=== PATIENT | male | born 1955 | race Caucasian/White ===

== ENCOUNTER → 2018-02-18 10:20 | Outpatient (CLI) | payer OTHER, SELFPAY ==
--- NOTE | 2018-02-18 10:28 | XR_ITS ---
XR chest 2V HISTORY: ITS.REASON: PERSISTENT COUGH ORDERING PHYSICIAN: Vanessa Disla PATIENT AGE: 63 years COMPARISON: None FINDINGS: The cardiomediastinal silhouette and pulmonary vascularity are within normal limits. The lungs are clear without infiltrates, suspicious nodules, or pleural effusions. No acute bony abnormalities. IMPRESSION: Negative chest, no acute finding
== END ==
PROVIDERS: Visit Provider Nurse Practitioner Family
DX: R05 Cough (principal)
CPT/HCPCS: 71046

== ENCOUNTER → 2018-06-11 10:18 | Outpatient (CLI) | payer OTHER, SELFPAY ==
--- NOTE | 2018-06-11 10:29 | XR_ITS ---
XR knee RT 3V HISTORY: ITS.REASON: RT ANTERIOR PAIN ORDERING PHYSICIAN: Francis Brown MD PATIENT AGE: 63 years COMPARISON: None FINDINGS: There is very slight decrease in the joint space medially with minimal spurring at the patellofemoral joint. On the lateral view there is coarse calcification noted over the anterior aspect of the knee joint suggesting a loose body. This measures approximately 5 mm. IMPRESSION: Minimal osteoarthritis with possible loose body anteriorly
== END ==
PROVIDERS: PCP Internal Medicine Adolescent Medicine; Visit Provider Internal Medicine Adolescent Medicine
DX: M25.561 Pain in right knee (principal)
CPT/HCPCS: 73562

== ENCOUNTER → 2018-06-23 08:38 | Outpatient (CLI) | payer OTHER, SELFPAY ==
--- NOTE | 2018-06-23 08:41 | XR_ITS ---
XR knee RT 4V HISTORY: Knee pain ITS.REASON: 4 views weightbearing ORDERING PHYSICIAN: Wesley Blakely MD PATIENT AGE: 63 years COMPARISON: None FINDINGS: No fracture or dislocation. No lytic or blastic change. Normal mineralization. No significant arthritic changes evident. No other significant findings IMPRESSION: Negative Knee
== END ==
PROVIDERS: PCP Internal Medicine Adolescent Medicine; Visit Provider Orthopaedic Surgery
DX: M25.561 Pain in right knee (principal)
CPT/HCPCS: 73564

== ENCOUNTER → 2018-06-28 12:53 | Outpatient (CLI) | payer OTHER, SELFPAY ==
--- NOTE | 2018-06-28 12:56 | MR_ITS ---
MR knee RT wo con HISTORY: Knee pain, limited range of motion ITS.REASON: evaluate for loose body ORDERING PHYSICIAN: Wesley Blakely MD PATIENT AGE: 63 years Comparison: 06/23/2018 TECHNIQUE: Standard multiplanar multiecho sequences are performed without contrast. FINDINGS: The cruciate ligaments are unremarkable. The collateral ligaments, patellar tendon, and quadriceps tendon have an unremarkable appearance. No meniscal tear . There is minimal irregularity of the posterior patellar cartilage. There are mild osteoarthritic changes of all 3 compartments. No bone bruise apparent. Previous radiograph raising question of a possible loose body. These are often times not well demonstrated by MR I am better demonstrated by CT. There is a small knee joint effusion with a small White's cyst. IMPRESSION: 1. No internal derangement. 2. Mild osteoarthritis with small knee joint effusion and small White's cyst. 3. A loose body is not identified however, often times loose bodies may not be seen on MRI and may be better evaluated for with CT. IMPRESSION:
== END ==
PROVIDERS: PCP Internal Medicine Adolescent Medicine; Visit Provider Orthopaedic Surgery
DX: M23.41 Loose body in knee, right knee (principal)
CPT/HCPCS: 73721

== ENCOUNTER → 2018-07-28 07:48 | Outpatient (CLI) | payer OTHER, SELFPAY ==
--- NOTE | 2018-07-28 07:50 | CT_ITS ---
CT knee RT wo con INDICATION: Right knee pain with instability ITS.REASON: evaluate for loose body ORDERING PHYSICIAN: Wesley Blakely MD PATIENT AGE: 63 years COMPARISON: 06/23/2018 TECHNIQUE: Axial images are obtained without contrast. Sagittal and coronal reformatted images are reviewed as well. All CT scans at the facility use one or more dose reduction, viz: automated exposure control, ma/kV adjustment per patient size (including targeted exams where dose is matched to indication, i.e. head), or iterative reconstruction technique. FINDINGS: There are 2 calcific loose bodies present. The anterior aspect of the knee joint partially calcified loose body is noted measuring 9 mm transverse and 5 mm AP. This is anterior to the tibial spines lying along the medial aspect of the lateral tibial plateau. Seconds somewhat irregular partially calcified loose body is present posterior aspect of the knee posterior to the medial femoral condyle measuring 6 x 5 mm. This is within a small White's cyst. No fracture or dislocation is evident. There are mild tricompartmental osteoarthritic changes along with a small knee joint effusion and small White's cyst. The White's cyst measures 3 cm cephalad to caudad and 1 cm AP. IMPRESSION: 1. Mild osteoarthritis involving all 3 compartments. 2. There are 2 partially calcified loose bodies as described above 1 in the 8 year aspect of the knee joint space and one posteriorly along the medial femoral condyle within a small White's cyst.
== END ==
PROVIDERS: PCP Internal Medicine Adolescent Medicine; Visit Provider Orthopaedic Surgery
DX: M23.41 Loose body in knee, right knee (principal)
CPT/HCPCS: 73700

== ENCOUNTER → 2018-09-08 10:35 | Outpatient (CLI) | payer OTHER, SELFPAY ==
--- NOTE | 2018-09-08 10:40 | XR_ITS ---
XR chest 2V HISTORY: ITS.REASON: HTN ORDERING PHYSICIAN: Wesley Blakely MD PATIENT AGE: 63 years COMPARISON: 02/18/2018. FINDINGS: The cardiomediastinal silhouette and pulmonary vascularity are within normal limits. The lungs are clear without infiltrates, suspicious nodules, or pleural effusions. No acute bony abnormalities. IMPRESSION: Negative chest, no acute finding
[2018-09-08 11:23] LABS: Basophils # 0.1 K/mm3 (0-0.2); Basophils % 2.3 % (0.1-2.0); Eosinophils # 0.5 K/mm3 (0.0-0.4); Eosinophils % 8.4 % (0.1-12.0); Hematocrit 45.5 % (42.0-52.0); Hemoglobin 14.7 g/dL (14.1-18.0); Lymphocytes # 1.5 K/mm3 (0.7-4.5); Lymphocytes % 25.6 % (10-50); Mean Corpuscular HGB Conc 32.4 g/dL (31.8-35.4); Mean Corpuscular Hemoglobin 30.4 pg (27.0-31.2); Mean Corpuscular Volume 93.9 fl (80-94); Mean Platelet Volume 7.4 fl (7.4-10.4); Monocytes # 0.5 K/mm3 (0.1-1.0); Monocytes % 8.4 % (1.7-9.3); Neutrophils # 3.3 K/mm3 (1.8-7.8); Neutrophils % 55.4 % (37.0-80.0); Platelet Count 283 K/mm3 (142-424); Red Blood Count 4.84 M/mm3 (4.60-6.20); Red Cell Distribution Width 12.5 % (11.5-17.5); White Blood Count 5.9 K/mm3 (4.8-10.8)
[2018-09-08 13:55] LABS: Anion Gap 11.2 mEq/L (5-15); Blood Urea Nitrogen 13 mg/dL (7-18); Carbon Dioxide 30 mmol/L (21.0-32.0); Chloride 105 mmol/L (98-107); Creatinine,Serum 1.05 mg/dL (0.70-1.30); Estimated Glomerular Filt Rate 72 ml/min (>60); GFR (African American) 87 ML/MIN (>60); Glucose 82 mg/dL (74-106); Potassium 4.2 mmoL/L (3.5-5.1); Sodium 142 mmol/L (136-145)
== END ==
PROVIDERS: PCP Internal Medicine Adolescent Medicine; Visit Provider Orthopaedic Surgery
DX: Z01.818 Encounter for other preprocedural examination (principal); M17.0 Bilateral primary osteoarthritis of knee
CPT/HCPCS: 36415; 71046; 80048; 85025; 93005

== ENCOUNTER → 2018-12-07 13:39 | Outpatient (POV) | payer OTHER, SELFPAY | PROVIDERS: Visit Provider Dermatology | DX: Z00.00 Encounter for general adult medical examination without abnormal findings (principal) ==

== ENCOUNTER → 2019-01-04 09:16 | Outpatient (POV) | payer OTHER, SELFPAY | PROVIDERS: Visit Provider Otolaryngology | DX: Z00.00 Encounter for general adult medical examination without abnormal findings (principal) ==

== ENCOUNTER 2019-01-11 08:30 | Outpatient (RCR) | payer OTHER, SELFPAY ==
--- NOTE | 2018-11-01 10:35 | HMH.PTOPEV ---
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 on 09/16/18. Pt reports improved R knee pain and buckling episodes since sx . (trochlear microfx, medial plica resection, and chondroplasty). Pt currently reports 'normal post-op' soreness in R knee (lateral> medial). Chief Complaint Pain,Stiff,Clicks,Weakness Symptom Type Ache,Dull Symptoms Relieved By Rest/Positioning Symptoms Aggravated By Standing,Walking Prior Functional Limitations Standing,Walking Current Functional Limitations Standing,Squatting,Walking, Stairs Symptom Description Constant but Variable Level of pain today (0-10) 3 Pain scale - at its best (0-10) 2 Pain scale - at its worst (0-10) 6 Hip/Knee Eval Gait Observation General Gait Pattern Observation Antalgic Gait Assistive Device Assistive Devices None / NA Palpation Tenderness right Knee Palpation Finding Tenderness Knee Palpation Overall Comment 2/4 lateral jt line MMT Hip Flexion Strength Grade 4- Good- Hip Abduction Strength Grade 4- Good- Hip Adduction Strength Grade 4- Good- Hip Extension Strength Grade 4- Good- Hip External Rotation Strength Grade 4 Good Hip Internal Rotation Strength Grade 4- Good- Knee Extension Strength Grade 5 Normal Knee Flexion Strength Grade 4 Good ROM left Knee Flexion Active Range of Motion ( 0-140 degrees) right Knee Flexion Active Range of Motion ( 0-105 degrees) Knee ROM Limitations Soft Tissue Tightness,Pain Effusion joint effusion knee exam standard right Mid - Patellar Circumerential Measure ( 41.5 cm) Outpatient Therapy Assessment Impairments Problems/Impairmments Palpation Tenderness,Impaired Range of Motion,Impaired Strength,Impaired Gait Pattern ,Impaired Walking,Impaired Standing,Impaired Stair
--- NOTE | 2018-12-02 08:54 | HMH.RHREAS ---
Rehab Reassessment Rehab OP Re-assessment Start: 12/02/18 08:22 Freq: Status: Active Protocol: Document 12/02/18 08:51 TAMI (Rec: 12/02/18 08:54 GISSELLEKARINAMICHELLE [id number]) Electronically Signed By Pollo Fitzgerald, PT 12/02/18 08:51 Rehab Re-assessment Subjective Subjective PT REPORTS 4/10 R KNEE PAIN ON VAS, AND FEELS 70-75% BETTER OVERALL FUNCTIONALLY SINCE I EVAL Objective Objective Notes AROM: R KNEE 0-130 MMT: R KNEE EXT 4+/5, FLX 4+/5 , HIP FLX 4-4+/5, HIP ABD/ADD/ EXT 4/5 TTP: R KNEE MEDIAL JT LINE 1/4 EDEMA: CIRCUM. 40.5 R KNEE MID -PATELLA 40.5CM Assessment Progress Assessment Progressing as Expected Assessment Notes PT W/IMPROVED SWELLING, PAIN, STRENGTH, AROM, AND TTP Patient goals met STG'S 07/23 LTG'S 03/30 Goals Not Met STG'S 02/22, LTG'S 11/27 Plan Plan PT TO CONT. W/SKILLED P.T. TO MAKE FURTHER IMPROVEMENTS IN AROM, STRENGTH (QUAD CONTROL), TTP, AND GAIT TO ALLOW FOR OPTIMAL FUNCTION Frequency of Therapy 1-2X/WK Duration of therapy 3-4 WKS Time and Billing Re-Eval Time 15 Re-Eval Billing Units 1 PHYSICIAN CERTIFICATION: I certify the specified therapy services for Elvin Paige are required, authorized, and reviewed every 30 days.
== END 2019-01-11 08:35 | disposition home or self-care (01) ==
LOC: PT 08:30
PROVIDERS: Visit Provider Orthopaedic Surgery
DX: M17.11 Unilateral primary osteoarthritis, right knee (principal); M23.41 Loose body in knee, right knee; M25.561 Pain in right knee; G89.29 Other chronic pain
CPT/HCPCS: 97010; 97014; 97110; 97163; 97164; 97535; G0283

== ENCOUNTER → 2019-06-01 08:43 | Outpatient (CLI) | payer OTHER, SELFPAY ==
--- NOTE | 2019-06-01 08:47 | FL_ITS ---
PROCEDURE: FL UPPER GI W AIR CLINICAL INDICATION: ODYNOPHAGIA acid reflux COMPARISON: No exams were available for comparison TECHNIQUE: FLUOROSCOPY TIME : 2 minutes and 44 seconds FINDINGS: There is a small hiatal hernia with a mildly constricting Schatzki's ring. This however does allow the passage of a 5 mm barium tablet without difficulty. No mass or ulcer is evident. IMPRESSION: Small hiatal hernia with mildly constricting Schatzki's ring Dictated by: Brown Bowman MD 06/01/2019 15:47 Electronically signed by Brown Bowman MD in [place] 06/01/2019 15:47
== END ==
PROVIDERS: PCP Internal Medicine Adolescent Medicine; Visit Provider Internal Medicine Adolescent Medicine
DX: R13.10 Dysphagia, unspecified (principal)
CPT/HCPCS: 74246

== ENCOUNTER 2019-11-18 13:45 | Emergency (ER) | payer OTHER, SELFPAY ==
[2019-11-18 14:30] VITALS: BP 181/101; PULSE 63; RESP 14; TEMP 36.7; O2SAT 95; BMI 29.9
--- NOTE | 2019-11-18 14:52 | HMH.EDUTC ---
[facility] [place] Clinical Impression: Hypertension Qualifiers: Hypertension type: unspecified Qualified Code(s): I10 - Essential (primary) hypertension Disposition: Home, Self-Care Condition on Discharge: Good Instructions: Essential Hypertension Additional Instructions: Follow up with your primary care physician. Increase the losartan to 100 mg daily. I sent in a prescription to your pharmacy. GO TO THE ER FOR ANY CHEST PAIN, SHORTNESS OF BREATH, ETC OR ANY WORSENING SYMPTOMS Prescriptions: Losartan Potassium [Cozaar 100mg Tablets] 100 mg PO DAILY 30 Days #30 tab Transmission Status: Received by [facility] Referrals: Francis Brown MD [Primary Care Provider] - Time of Disposition: 14:58 Medical Decision Making - Medical Records Medical records reviewed: No: I reviewed the patient's medical records. - Benito Inquiry Pt receiving controlled substance: No Vital Signs: 11/18/19 14:30 11/18/19 15:19 Temperature 98.1 F 98.1 F Temperature Source Oral Oral Pulse Rate 63 Pulse Rate [Radial] 63 Respiratory Rate 14 14 Blood Pressure 181/101 H Blood Pressure [Right Arm] 181/101 H Blood Pressure Mean [Right Arm] 127 Blood Pressure Source Automatic Cuff Blood Pressure Source [Right Arm] Automatic Cuff Blood Pressure Position Sitting Blood Pressure Position [Right Arm] Sitting 02 Sat by Pulse Oximetry 95 Oxygen Delivery Method Room Air Room Air [facility] [place] - General Stated complaint: blood pressure high Time Seen by Provider: 11/18/19 14:35 Mode of Arrival: Ambulatory Source of Information: Patient Limitations: No Limitations Description of Symptoms (Recalled from Triage Doc. by RN): Increased blood pressure. No symptoms HEENT Symptoms (Recalled from RN notes): No Resp Symptoms (Recalled from RN notes): No Skin Symptoms (Recalled from RN notes): No MS Symptoms (Recalled from RN notes): No Functional Status (Recalled from RN notes): wnl - History of Present Illness Provider Complaint: He states that 3 days ago he went to his eye doctor and it was found that his blood pressure has not been controlled. So he has a blood pressure cuff now and his b/p has been running 160/100s at home. - Related Data Home Medications Medication Instructions Recorded Confirmed bupropion HCl 150 mg tablet,12 hr 150 mg PO BID 03/20/17 06/22/19 sustained-release atorvastatin 20 mg tablet 20 mg PO DAILY 06/23/18 06/22/19 losartan 50 mg tablet 50 mg PO DAILY 06/23/18 06/22/19 trazodone 50 mg tablet 50 mg PO DAILY 06/23/18 06/22/19 Previous Rx's Medication Instructions Recorded peg 3350-electrolytes 227.1 240 ml PO Q10M #1 each 06/22/19 gram-21.5 gram-6.36gram oral powder packet omeprazole magnesium 20 mg 20 mg PO DAILY #30 tab 07/08/19 tablet,delayed release Losartan Potassium [Cozaar 100mg 100 mg PO DAILY 30 Days #30 tab 11/18/19 Tablets] Allergies Allergy/AdvReac Type Severity Reaction Status Date / Time Penicillins Allergy hives Verified 06/22/19 09:01 Sulfa (Sulfonamide Allergy Verified 06/22/19 09:01 Antibiotics) Tetracyclines AdvReac Mild CARDENAS Verified 06/22/19 09:01 - Worker's Comp Is this a Worker's Comp case?: No [facility] History - Hepatitis A Screen Drug use history?: No High risk sexual behaviors?: No History of sexually transmitted infection?: No Currently employed?: No Childcare worker?: No Do you have indoor plumbing?: Yes Do you have electricity?: Yes Attestation statement:: This patient has been screened for Hepatitis A risk factors. I have reviewed the patient's past medical history: Yes 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: Reports:: Hyperlipidemia, Hypertension Denies:: Cancer, Depression, Diabetes Mellitus Type 1, Diabetes Mellitus Type 2, Internal Pacemaker, MRSA, Seizures Other 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: Reports: Sinus Problems, Other. Denies: Blood Transfusion Reaction Laterality Cases: Right: Arthroscopy Knee, Bilateral: Other Other Surgeries: Yes: Other.
[2019-11-18 15:19] VITALS: BP 181/101; PULSE 63; RESP 14; TEMP 36.7; O2SAT 95
== END 2019-11-18 15:19 | disposition home or self-care (01) ==
PROVIDERS: Emergency Provider Nurse Practitioner Family; PCP Internal Medicine Adolescent Medicine
DX: I16.0 Hypertensive urgency (principal); E78.5 Hyperlipidemia, unspecified; Z88.0 Allergy status to penicillin; Z88.2 Allergy status to sulfonamides
CPT/HCPCS: 99201

== ENCOUNTER → 2019-12-28 12:08 | Outpatient (CLI) | payer OTHER, SELFPAY ==
[2019-12-28 13:34] LABS: Alanine Aminotransferase 34 U/L (12-78); Albumin Level 4.3 g/dl (3.5-5.0); Albumin/Globulin Ratio 1.6 (1.1-1.8); Alkaline Phosphatase 61 U/L (38-126); Anion Gap 11.7 mEq/L (5-15); Aspartate Amino Transferase 30 U/L (17-59); Blood Urea Nitrogen 12 mg/dl (9-20); Calcium 9.7 mg/dl (8.4-10.2); Carbon Dioxide 30 mmol/L (22.0-30.0); Chloride 103 mmol/L (98-107); Chol/HDL Ratio 2.8 (1-3.5); Cholesterol 160 mg/dl (140-200); Estimated Glomerular Filt Rate 76 ml/min (>60); GFR (African American) 92 ML/MIN (>60); Globulin 2.7 g/dL (1.3-3.2); Glucose 103 mg/dl (74-100); HDL Cholesterol 57 mg/dl (40-60); Potassium 4.7 mmoL/L (3.5-5.1); Sodium 140 mmol/L (136-145); Triglycerides 117 mg/dl (30-150); VLDL Cholesterol 23 mg/dL (0-40)
[2019-12-28 13:46] LABS: Direct LDL Cholesterol 87.52 mg/dL (100-129)
== END ==
PROVIDERS: Visit Provider Internal Medicine Adolescent Medicine
DX: I10 Essential (primary) hypertension (principal)
CPT/HCPCS: 36415; 80053; 80061

== ENCOUNTER → 2021-02-21 13:07 | Outpatient (CLI) | payer OTHER, SELFPAY | PROVIDERS: PCP Internal Medicine Adolescent Medicine; Visit Provider Nurse Practitioner | DX: Z20.822 Contact with and (suspected) exposure to COVID-19 (principal) | CPT/HCPCS: C9803; U0003; U0005 ==

== ENCOUNTER → 2021-03-08 16:56 | Outpatient (CLI) | payer OTHER, SELFPAY | PROVIDERS: Visit Provider Nurse Practitioner | DX: Z20.822 Contact with and (suspected) exposure to COVID-19 (principal) | CPT/HCPCS: C9803; U0003; U0005 ==

== ENCOUNTER → 2021-03-22 16:32 | Outpatient (CLI) | payer OTHER, SELFPAY | PROVIDERS: PCP Internal Medicine Adolescent Medicine; Visit Provider Nurse Practitioner | DX: Z20.822 Contact with and (suspected) exposure to COVID-19 (principal) | CPT/HCPCS: C9803; U0003; U0005 ==

== ENCOUNTER 2021-07-14 15:34 | Emergency (ER) | payer OTHER, SELFPAY ==
[2021-07-14 16:30] VITALS: BP 141/86; PULSE 68; RESP 19; TEMP 36.6; O2SAT 100; BMI 32.0
--- NOTE | 2021-07-14 16:56 | HMH.EDUTC ---
[facility] [place] Clinical Impression: Encounter for laboratory testing for COVID-19 virus Disposition: Home, Self-Care Condition on Discharge: Good Instructions: DI for COVID-19 (Suspected or Confirmed ), Preventing the Spread of Coronavirus Discharge Instructions Additional Instructions: *Monitor Temp, Over the counter Motrin or Tylenol as directed/as needed Tylenol every 4 hours and Motrin every 6 hours (as long as your family doctor has told you that you can take it) for fever or pain. and straight to ER if unable to lower temp less than 101.0 after medication given *Warm salt water gargles may help to soothe the throat *Throat Lozenges *Warm fluids like tea with honey may help to soothe the throat *Sleep elevated *Humidifier/Vaporizer Follow up IMMEDIATELY for new or worsening symptoms or no Noticeable improvement over the next 48-72 hours. 911 for difficulty breathing or swallowing You were tested for today for upper respiratory Panel COVID19 your test result should be back in the next 24-48 hours, you may check your results on the [facility] Portal Referrals: Francis Brown MD [Primary Care Provider] - As needed Forms: Work/School Release Time of Disposition: 17:15 Medical Decision Making - Benito Inquiry Pt receiving controlled substance: No Benito was queried for this patient: No Vital Signs: 07/14/21 16:30 Temperature 97.9 F Temperature Source Oral Pulse Rate [Right Brachial] 68 Respiratory Rate 19 Blood Pressure [Right Arm] 141/86 H Blood Pressure Mean [Right Arm] 104 Blood Pressure Source [Right Arm] Automatic Cuff Blood Pressure Position [Right Arm] Sitting 02 Sat by Pulse Oximetry 100 Oxygen Delivery Method Room Air [facility] [place] HPI - General Stated complaint: positive covid home test; cough; runny nose Time Seen by Provider: 07/14/21 16:57 Mode of Arrival: Ambulatory Source of Information: Patient Limitations: No Limitations Description of Symptoms (Recalled from Triage Doc. by RN): PATIENT C/O DRY COUGH AND CONGESTION X 3 DAYS. STATES HE HAD A POSITIVE AT HOME COVID TEST HEENT Symptoms (Recalled from RN notes): Yes Resp Symptoms (Recalled from RN notes): Yes Skin Symptoms (Recalled from RN notes): No MS Symptoms (Recalled from RN notes): No Functional Status (Recalled from RN notes): WNL - History of Present Illness Provider Complaint: Patient state that he has been having dry cough, runny nose and feeling achy States that he took an at home COVID test and it was positive States that he wanted to get tested here to see if it is positive too - Related Data Home Medications Medication Instructions Recorded Confirmed bupropion HCl 150 mg tablet,12 hr 150 mg PO BID 03/20/17 06/22/19 sustained-release atorvastatin 20 mg tablet 20 mg PO DAILY 06/23/18 06/22/19 losartan 50 mg tablet 50 mg PO DAILY 06/23/18 06/22/19 trazodone 50 mg tablet 50 mg PO DAILY 06/23/18 06/22/19 Previous Rx's Medication Instructions Recorded peg 3350-electrolytes 227.1 240 ml PO Q10M #1 each 06/22/19 gram-21.5 gram-6.36gram oral powder packet omeprazole magnesium 20 mg 20 mg PO DAILY #30 tab 07/08/19 tablet,delayed release Losartan Potassium [Cozaar 100mg 100 mg PO DAILY 30 Days #30 tab 11/18/19 Tablets] Allergies Allergy/AdvReac Type Severity Reaction Status Date / Time Penicillins Allergy hives Verified 06/22/19 09:01 Sulfa (Sulfonamide Allergy Verified 06/22/19 09:01 Antibiotics) Tetracyclines AdvReac Mild CARDENAS Verified 06/22/19 09:01 - Worker's Comp Is this a Worker's Comp case?: No [facility] History - Hepatitis A Screen Attestation statement:: This patient has been screened for Hepatitis A risk factors. I have reviewed the patient's past medical history: Yes 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: Reports:: Hyperlipidemia, Hypertension Denies:: Cancer, Depression, Diabetes Mellitus Type 1, Diabetes Mellitus Type 2, Internal Pacemaker, MRSA, Seizures Other 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: Reports: Sinus
[2021-07-14 17:20] VITALS: BP 141/86; PULSE 68; RESP 19; TEMP 36.6; O2SAT 100
== END 2021-07-14 17:25 | disposition home or self-care (01) ==
PROVIDERS: Emergency Provider Nurse Practitioner; PCP Internal Medicine Adolescent Medicine
DX: U07.1 COVID-19 (principal); I10 Essential (primary) hypertension; E78.5 Hyperlipidemia, unspecified
CPT/HCPCS: 99212; C9803; G0463; U0003; U0005

== ENCOUNTER 2021-07-18 11:53 | Emergency (ER) | payer OTHER, SELFPAY ==
[2021-07-18 12:00] VITALS: BP 140/82; PULSE 76; RESP 17; TEMP 36.8; O2SAT 100; BMI 31.5
--- NOTE | 2021-07-18 12:22 | HMH.EDUTC ---
[facility] [place] Disposition Clinical Impression: Encounter for laboratory testing for COVID-19 virus Disposition: Home, Self-Care Condition on Discharge: Good Instructions: DI for COVID-19 (Suspected or Confirmed ), Preventing the Spread of Coronavirus Discharge Instructions Additional Instructions: *Monitor Temp, Over the counter Motrin or Tylenol as directed/as needed Tylenol every 4 hours and Motrin every 6 hours (as long as your family doctor has told you that you can take it) for fever or pain. and straight to ER if unable to lower temp less than 101.0 after medication given *Warm salt water gargles may help to soothe the throat *Throat Lozenges *Warm fluids like tea with honey may help to soothe the throat *Sleep elevated *Humidifier/Vaporizer Your results should be back in the next 24-48 hours and should be available on the [facility] My Health portal Follow up IMMEDIATELY for new or worsening symptoms or no Noticeable improvement over the next 48-72 hours. 911 for difficulty breathing or swallowing Referrals: Francis Brown MD [Primary Care Provider] - Forms: Work/School Release Time of Disposition: 12:28 Medical Decision Making - Benito Inquiry Pt receiving controlled substance: No Benito was queried for this patient: No Vital Signs: 07/18/21 12:00 Temperature 98.2 F Temperature Source Oral Pulse Rate [Right Brachial] 76 Respiratory Rate 17 Blood Pressure [Right Arm] 140/82 Blood Pressure Mean [Right Arm] 101 Blood Pressure Source [Right Arm] Automatic Cuff Blood Pressure Position [Right Arm] Sitting 02 Sat by Pulse Oximetry 100 Oxygen Delivery Method Room Air Orders (Tests/Meds): ORDERS Category Date Time Status Covid-19 Nasal PCR ([facility]) Routine Lab 07/18/21 11:58 Received [facility] [place] HPI - General Stated complaint: covid test Time Seen by Provider: 07/18/21 12:22 Mode of Arrival: Ambulatory Source of Information: Patient Limitations: No Limitations Description of Symptoms (Recalled from Triage Doc. by RN): PATIENT REPORTS HE TESTED POSITIVE FOR COVID ON THURSDAY. HIS WORK IS WANTING HIM TO RETURN, HOWEVER HE IS STILL HAVING SYMPTOMS. PATIENT REQUESTING COVID TEST HEENT Symptoms (Recalled from RN notes): No Resp Symptoms (Recalled from RN notes): No Skin Symptoms (Recalled from RN notes): No MS Symptoms (Recalled from RN notes): No Functional Status (Recalled from RN notes): WNL - History of Present Illness Provider Complaint: Patient requesting to get a COVID test States that he tested positive on Thursday and work is wanting him to return but he is still not feeling well and still having symptoms - Related Data Home Medications Medication Instructions Recorded Confirmed bupropion HCl 150 mg tablet,12 hr 150 mg PO BID 03/20/17 06/22/19 sustained-release atorvastatin 20 mg tablet 20 mg PO DAILY 06/23/18 06/22/19 losartan 50 mg tablet 50 mg PO DAILY 06/23/18 06/22/19 trazodone 50 mg tablet 50 mg PO DAILY 06/23/18 06/22/19 Previous Rx's Medication Instructions Recorded peg 3350-electrolytes 227.1 240 ml PO Q10M #1 each 06/22/19 gram-21.5 gram-6.36gram oral powder packet omeprazole magnesium 20 mg 20 mg PO DAILY #30 tab 07/08/19 tablet,delayed release Losartan Potassium [Cozaar 100mg 100 mg PO DAILY 30 Days #30 tab 11/18/19 Tablets] Allergies Allergy/AdvReac Type Severity Reaction Status Date / Time Penicillins Allergy hives Verified 06/22/19 09:01 Sulfa (Sulfonamide Allergy Verified 06/22/19 09:01 Antibiotics) Tetracyclines AdvReac Mild CARDENAS Verified 06/22/19 09:01 - Worker's Comp Is this a Worker's Comp case?: No [facility] History - Hepatitis A Screen Attestation statement:: This patient has been screened for Hepatitis A risk factors. I have reviewed the patient's past medical history: Yes 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: Reports:: Hyperlipidemia, Hypertension Denies:: Cancer, Depression, Diabetes Mellitus Type 1, Diabetes Mellitus Type 2, Internal Pacemaker, MRSA,
[2021-07-18 12:25] VITALS: BP 140/82; PULSE 76; RESP 17; TEMP 36.8; O2SAT 100
== END 2021-07-18 12:38 | disposition home or self-care (01) ==
PROVIDERS: Emergency Provider Nurse Practitioner; PCP Internal Medicine Adolescent Medicine
DX: Z20.822 Contact with and (suspected) exposure to COVID-19 (principal)
CPT/HCPCS: 99212; C9803; G0463; U0003; U0005

== ENCOUNTER → 2023-01-22 07:41 | Outpatient (CLI) | payer OTHER, SELFPAY ==
--- NOTE | 2023-01-22 08:22 | US_ITS ---
FINAL REPORT CLINICAL HISTORY: LT UPPER QUAD PAIN,NODULE OF SKIN COMPARISON: None FINDINGS: Sonographic images of the abdomen were obtained. The liver has a coarsened echotexture, suggesting either fatty infiltration of the liver or cirrhosis. The gallbladder has an unremarkable appearance without evidence of gallstones. There is no evidence of biliary ductal dilatation. The common hepatic duct measures 3 mm, which is within normal limits. The pancreas is obscured by overlying bowel gas. The spleen size is normal. The right kidney measures 10.8 in length. The left kidney measures 12.1 in length. There is normal renal echogenicity. There is no evidence of hydronephrosis. The aorta has an unremarkable appearance. Limited images of the inferior vena cava are unremarkable. IMPRESSION: Coarsened echotexture of the liver, likely either fatty infiltration of the liver or cirrhosis. Reviewed, Interpreted and Dictated by Gasper García III, MD Transcribed by Johanny Jeffers Authenticated and [facility]
== END ==
PROVIDERS: PCP Internal Medicine Adolescent Medicine; Visit Provider Internal Medicine Adolescent Medicine
DX: R10.12 Left upper quadrant pain (principal); R22.2 Localized swelling, mass and lump, trunk
CPT/HCPCS: 76700

== ENCOUNTER 2023-02-17 11:52 | Outpatient (CLI) | payer OTHER, SELFPAY ==
--- NOTE | 2023-02-17 12:17 | XR_ITS ---
FINAL REPORT CLINICAL HISTORY: ACUTE FEBRILE ILLNESS, soa, low o2 sats COMPARISON: December 2018 FINDINGS: Two views of the chest show lungs to be clear. Pulmonary vascularity is normal. Heart and mediastinum are unremarkable. No pleural effusion is present. IMPRESSION: No active disease. Reviewed, Interpreted and Dictated by Gasper García III, MD Transcribed by Dell Alvarenga Authenticated and [facility]
== END 2023-02-17 23:59 ==
PROVIDERS: PCP Internal Medicine Adolescent Medicine; Visit Provider Internal Medicine Adolescent Medicine
DX: R50.9 Fever, unspecified (principal)
CPT/HCPCS: 71046

== ENCOUNTER 2023-02-25 13:35 | Outpatient (CLI) | payer OTHER, SELFPAY ==
--- NOTE | 2023-02-25 13:46 | ECG_ITS ---
APPROVED REPORT Exam: Resting ECG HR:67 bpm ECG Measurements Heart Rate 67 AXES OR 170 P 40 QRSd 82 QRS 88 QT 381 T 22 QTc 397 Conclusion SINUS RHYTHM NORMAL ECG UNCONFIRMED REPORT Electronically signed by : Francis Brown MD 02/26/2023 20:11:16
[2023-02-25 14:12] LABS: Basophils # 0.1 K/mm3 (0-0.2); Basophils % 1.6 % (0.1-2.0); Eosinophils # 0.7 K/mm3 (0.0-0.4); Eosinophils % 7.5 % (0.1-12.0); Hematocrit 48.5 % (42.0-52.0); Hemoglobin 15.6 g/dL (14.1-18.0); Lymphocytes # 1.8 K/mm3 (0.7-4.5); Lymphocytes % 20.5 % (10-50); Mean Corpuscular HGB Conc 32.2 g/dL (31.8-35.4); Mean Corpuscular Hemoglobin 31.7 pg (27.0-31.2); Mean Corpuscular Volume 98.5 fl (80-94); Mean Platelet Volume 7.5 fl (7.4-10.4); Monocytes # 0.6 K/mm3 (0.1-1.0); Monocytes % 7.3 % (1.7-9.3); Neutrophils # 5.6 K/mm3 (1.8-7.8); Neutrophils % 63.1 % (37.0-80.0); Platelet Count 444 K/mm3 (142-424); Red Blood Count 4.93 M/mm3 (4.60-6.20); Red Cell Distribution Width 12.8 % (11.5-17.5); White Blood Count 8.8 K/mm3 (4.8-10.8)
[2023-02-25 15:00] LABS: Chloride 102 mmol/L (98-107); Potassium 5.1 mmoL/L (3.5-5.1); Sodium 137 mmol/L (136-145)
[2023-02-25 15:03] LABS: Anion Gap 15.1 mEq/L (5-15); Blood Urea Nitrogen 19 mg/dl (9-20); Carbon Dioxide 25 mmol/L (22.0-30.0); Estimated Glomerular Filt Rate 75 ml/min (>60); GFR (African American) 90 ML/MIN (>60)
[2023-02-25 15:04] LABS: Calcium 8.9 mg/dl (8.4-10.2); Glucose 169 mg/dl (74-100)
== END 2023-02-25 23:59 ==
PROVIDERS: PCP Internal Medicine Adolescent Medicine; Visit Provider Surgery
DX: R22.32 Localized swelling, mass and lump, left upper limb (principal)
CPT/HCPCS: 36415; 80048; 85025; 93005

== ENCOUNTER 2023-03-05 05:53 | Day surgery (SDC) | payer OTHER, SELFPAY ==
[2023-03-02 13:11] VITALS: BMI 30.8
[2023-03-05] VITALS (11 sets, daily range): BP systolic 122–137; BP diastolic 57–75; PULSE 63–71; RESP 16–19; TEMP 36.1–36.6; O2SAT 94–98
[2023-03-05] MEDS: LACTATED RINGERS 1000ML 1,000 ML 25 ML IV (06:21)
--- NOTE | 2023-03-05 07:23 | EXP.ANES.CKL ---
[facility] Disclaimer: The information contained in this section may have been updated after the patient was seen, as this information can be updated by other users. 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 occupational exposures/hazards: No caffeine: Yes [facility] Anesthesia Checklist Patient Identification Patient Identification: Arm Band Structural Data Admitted From: Home Planned Operative Procedure/s: Excision of Left Upper Extremity Mass Consent for Planned Operative Procedure(s) Verified: Yes Verified Documents: Surgical Consent and History and Physical NPO Status Verified Time NPO: 00:00 Additional verifications Anesthesia Reactions: No Hx Blood Transfusions: No Blood Transfusion Reaction: No Airway Assessment Mallampati Score:: Class II C-Spine Mobility Assessed: Yes TMJ Mobility Assessed: Yes Dentition: Good Dentition Neurological Assessment Level of Consciousness: Awake and Alert Anesthesia Plan Anesthesia Risk discussed: Yes Anesthesia Plan: Verified ASA Class: II Anesthesia Type: General
[2023-03-05] MEDS: CLINDAMYCIN PHOSPHATE 900 MG in 0.9 % SODIUM CHLORIDE 50 ML 112 MG IV (08:00)
[2023-03-05] MEDS: LIDOCAINE 1% 20ML MDV 20 ML (08:08)
[2023-03-05] MEDS: BACITRACIN ZINC OINT 30GM TUBE 28 GM TP (08:17)
--- NOTE | 2023-03-05 08:25 | P.OP_ITS ---
Date of procedure: 03/05/23 Pre-op Diagnosis:: Left upper extremity mass (2.5 cm) Post-op Diagnosis:: Same Procedure performed:: Excision of 2.5 cm left upper extremity mass (complex lobulated lipoma) Surgeon:: Ronald Delcid MD ENROLLMENT ELIGIBILITY REPRESENTATIVE:: Ilan Butler Anesthesia: LMA Estimated blood loss (mL): 10 Operative findings:: Complex lobulated lipoma excised Operative note:: After informed consent was obtained the patient was taken to the operating room and placed in the supine position. General anesthesia with laryngeal mask airway was achieved and his left arm was prepped and draped in a sterile fashion. After infiltration with local anesthetic an incision was made overlying the palpable lesion. A combination of sharp dissection, blunt dissection, and electrocautery was utilized to transect through the deep subcuta neous tissue. A lobulated complex lipomatous lesion was noted. The lesion was excised in toto and passed off for pathologic evaluation. Electrocautery was utilized to achieve hemostasis. Skin was then reapproximated with interrupted 4-0 nylon in a mattress fashion to facilitate hemostasis. Dressings were applied and patient was transferred to recovery in stable condition after removal of his laryngeal mask airway. Condition: stable Disposition: PACU Specimens:: Left upper extremity mass Complications:: No immediate
--- NOTE | 2023-03-05 08:34 | P.PNANES_ITS ---
[facility] Anesthesia Record Part I Anesthesia Record I Intake, IV Amount: 700 Hydration: Adequate Estimated blood loss (mL): 10 Urine output (mL): 0 Blood Products used (#): none Blood Pressure: 135/65 SaO2: 95 Pulse Rate: 71 Airway Patency: Patent Respiratory Rate: 16 Temperature: 97 F Patient is:: Drowsy and Stable Stable to PACU at:: 08:30
--- NOTE | 2023-03-05 09:05 | SUR.PHASEI ---
0840-decreased O2- 2L and sats dropped to 87%. went to 3L/O2 and pt sat at 94% 0850-decreased 02 NC to 2L Sats remaining at 95% 0900-O2/2L Sats 95%- unable to decrease at this time pt drops to 87% 0914- RA sats 94%
--- NOTE | 2023-03-05 09:30 | SUR.PHASEI ---
Gave reprot to Jojo via phone and then BFYovani at BS in postop
--- NOTE | 2023-03-06 08:57 | P.PNANES_ITS ---
[facility] Anesthesia Record Part II Anesthesia Record Part II Discharge Time: 09:19 Destination: Surgical Day Care (OP Surgery) PACU nurse assessment reviewed?: Yes Patient Condition:: Good Anesthesia Complications:: None Swallowing reflex intact?: Yes Airway Patency: Patent Cyanosis?: No Blood Pressure: 124/57 SaO2: 94 Respiratory Rate: 19 Pulse Rate: 65 Temperature: 97.8 F Mental Status: Alert & Oriented Pain level:: 0 Nausea and/or vomitting:: None Intake, IV Amount: 0 Hydration: Adequate
[2023-03-06 08:58] VITALS: BP 124/57; PULSE 65; RESP 19; TEMP 36.6; O2SAT 94
== END 2023-03-05 09:50 | disposition home or self-care (01) ==
PROVIDERS: PCP Internal Medicine Adolescent Medicine; Visit Provider Surgery
PROC: (CPT 11403; principal; 2023-03-05 07:30)
DX: D17.22 Benign lipomatous neoplasm of skin and subcutaneous tissue of left arm (principal)
CPT/HCPCS: 11403; 96374; J0736; J2405

== ENCOUNTER 2023-05-12 09:28 | Day surgery (SDC) | payer OTHER, SELFPAY ==
[2023-05-11 09:04] VITALS: BMI 30.7
[2023-05-12 09:49] VITALS: BP 165/79; PULSE 77; RESP 18; TEMP 36.3; O2SAT 97
[2023-05-12] MEDS: LACTATED RINGERS 1000ML 1,000 ML 25 ML IV (09:54)
--- NOTE | 2023-05-12 09:59 | EXP.ANES.CKL ---
[facility] Disclaimer: The information contained in this section may have been updated after the patient was seen, as this information can be updated by other users. 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 occupational exposures/hazards: No caffeine: No [facility] Anesthesia Checklist Patient Identification Patient Identification: Arm Band Structural Data Admitted From: Home Planned Operative Procedure/s: EGD/Colonoscopy Consent for Planned Operative Procedure(s) Verified: Yes Verified Documents: Surgical Consent and History and Physical NPO Status Verified Time NPO: 00:00 Additional verifications Anesthesia Reactions: No Hx Blood Transfusions: No Blood Transfusion Reaction: No Airway Assessment Mallampati Score:: Class III C-Spine Mobility Assessed: Yes TMJ Mobility Assessed: Yes Dentition: Good Dentition Neurological Assessment Level of Consciousness: Awake and Alert Anesthesia Plan Anesthesia Risk discussed: Yes Anesthesia Plan: Verified ASA Class: II Anesthesia Type: MAC
--- NOTE | 2023-05-12 10:26 | HMH.SCOPE ---
Procedure: Date: 05/12/23 Patient Date of :: 1955 Procedure Performed:: Esophagogastroduodenoscopy with biopsy Colonoscopy (aborted) Indications:: Gastroesophageal reflux Dysphagia Screening colonoscopy Performing Provider:: Ronald Delcid MD Referring Provider:: . Sedation:: Monitored anesthesia care Procedure:: After informed consent was obtained the patient was taken to the endoscopy suite. Sedation ensued after the patient was transferred to the left lateral decubitus position. Pulse, blood pressure, and oxygen saturation were monitored throughout the procedure. The endoscope was advanced beyond the duodenal bulb. Retroflexion within the gastric lumen was accomplished. The gastroscope was carefully removed. Digital rectal exam revealed no significant abnormality. The colonoscope was placed in position. Exceedingly poor bowel preparation immediately noted. The distal sigmoid/rectum had fairly profound stool burden. Advancement beyond the rectum/distal sigmoid was deemed unwarranted/unsafe. The colonoscope was carefully removed and the patient was transferred to recovery in stable condition. Please see findings and specimens below for detail. Findings:: Gastroesophageal junction at 40 cm Mild lobular inflammatory response to gastroesophageal junction Small sliding hiatal hernia Mild patchy gastritis Bowel preparation exceedingly poor (colonoscopy aborted) Specimens:: Antral biopsy Recommendations:: Proton pump inhibition Consider repeat barium swallow and possible modified barium swallow Consider UGI/SBFT Consider gastric emptying scan Colonoscopy in near future with extended bowel preparation (possibly deferred to the gastroenterology service) Consider gastroenterology evaluation secondary to exceedingly poor bowel preparation and patient's generalized gastrointestinal complaints. Complications:: Exceedingly poor bowel preparation. Colonoscopy aborted. Estimated blood obtained (mL): 1 Colonoscopy Component Colonoscopy Component Was a colonoscopy performed during today's procedure?: Yes Recommended follow up colonoscopy of at least 10 years?: No If no, follow up colonoscopy recommended in ___ years?: (See above) Reason for not recommending >/= 10 yr follow-up interval?: (See above)
[2023-05-12 10:31] VITALS: O2SAT 97
[2023-05-12 10:57] VITALS: BP 107/63; PULSE 70; RESP 16; TEMP 36.2; O2SAT 91
[2023-05-12 11:07] VITALS: BP 111/61; PULSE 65; RESP 16; O2SAT 90
[2023-05-12 11:17] VITALS: BP 132/71; PULSE 70; RESP 16; O2SAT 92
[2023-05-12 11:27] VITALS: BP 136/74; PULSE 65; RESP 16; TEMP 36.6; O2SAT 93
== END 2023-05-12 11:27 | disposition home or self-care (01) ==
PROVIDERS: PCP Internal Medicine Adolescent Medicine; Visit Provider Surgery
PROC: 0DJ08ZZ Inspection of Upper Intestinal Tract, Via Natural or Artificial Opening Endoscopic (ICD-10-PCS; CPT 43235; principal; 2023-05-12 10:30)
DX: K21.9 Gastro-esophageal reflux disease without esophagitis (principal); R13.10 Dysphagia, unspecified; Z12.11 Encounter for screening for malignant neoplasm of colon; Z91.199 Patient's noncompliance with other medical treatment and regimen due to unspecified reason; K44.9 Diaphragmatic hernia without obstruction or gangrene; K29.70 Gastritis, unspecified, without bleeding
CPT/HCPCS: 43239; 45378

== ENCOUNTER 2023-08-09 17:12 | Emergency (ER) | payer OTHER, MEDICARE, SELFPAY ==
[2023-08-09 17:50] VITALS: BP 146/67; PULSE 62; RESP 18; TEMP 36.8; O2SAT 97; BMI 30.3
[2023-08-09] MEDS: cephALEXin 500MG CAPSULE 500 MG PO (18:10)
--- NOTE | 2023-08-09 18:11 | ED_ITS ---
Discharge Plan Disposition Patient Disposition: Home, Self-Care Condition: Good Prescriptions Prescriptions: New cephalexin 500 mg tablet 500 mg PO BID 10 Days Qty: 20 0RF No Action trazodone 50 mg tablet 50 mg PO DAILY bupropion HCl 150 mg tablet extended release 24 hr 150 mg PO DAILY dapagliflozin propanediol [Farxiga] 10 mg tablet 10 mg PO DAILY Patient Comments: TAKE ONE TABLET BY MOUTH EVERY DAY pantoprazole 20 mg tablet,delayed release (DR/EC) 20 mg PO DAILY Qty: 30 3RF polyethylene glycol 3350 [Miralax] 17 gram/dose powder 17 g PO DAILY Qty: 510 0RF Rx Instructions: Take 17 grams daily in morning dissolved in liquid of choice. May titrate to effect/consistency of stool. atorvastatin 20 mg tablet 20 mg PO HS Patient Comments: TAKE ONE TABLET BY MOUTH EVERY DAY losartan 100 MG tablet 100 mg PO DAILY 30 Days Qty: 30 0RF Referrals Follow up/Referrals: Francis Brown MD [Primary Care Provider] - See instructions Activity Restrictions/Add. Instructions Additional Instructions/Restrictions: if worsen return antibiotics follow up with pcp Clinical Impressions Clinical Impression: Cellulitis of hand, Sting, wasp Instructions Patient Instructions: Cellulitis Discharge ED Provider: Artie ([facility] [place] General Stated complaint: Wasp sting Mode of Arrival: Ambulatory Source of Information: Patient Limitations: No Limitations Time Seen by Provider: 08/09/23 18:11 Description of Symptoms (Recalled from Triage Doc. by RN): Pt has a wasp sting on right hand HEENT Symptoms (Recalled from RN notes): No Resp Symptoms (Recalled from RN notes): No Skin Symptoms (Recalled from RN notes): Yes MS Symptoms (Recalled from RN notes): No Functional Status (Recalled from RN notes): n/a History of Present Illness Provider Complaint: 68 yr old male presents for rt hand swollen and red from wasp sting on thursday. pt states the redness and swelling has increased. Related Data Home Medications Medication Instructions Recorded Confirmed trazodone 50 mg tablet 50 mg PO DAILY bp 06/23/18 08/09/23 bupropion HCl 150 mg 24 hr tablet, 150 mg PO DAILY Depression 02/25/23 08/09/23 extended release atorvastatin 20 mg tablet 20 mg PO HS 03/02/23 08/09/23 dapagliflozin propanediol 10 mg 10 mg PO DAILY 08/03/23 08/09/23 tablet (Farxiga) Previous Rx's Medication Instructions Recorded losartan 100 mg tablet 100 mg PO DAILY 30 days #30 tabs 11/18/19 pantoprazole 20 mg tablet,delayed 20 mg PO DAILY #30 tabs 08/03/23 release polyethylene glycol 3350 17 17 g PO DAILY constipation #510 08/03/23 gram/dose oral powder (Miralax) grams cephalexin 500 mg tablet 500 mg PO BID 10 days #20 tabs 08/09/23 Allergies Allergy/AdvReac Type Severity Reaction Status Date / Time amoxicillin [From Augmentin] Allergy Mild Verified 08/09/23 18:08 clavulanic acid Allergy Mild Verified 08/09/23 18:08 [From Augmentin] Penicillins Allergy hives Verified 08/09/23 18:08 Sulfa (Sulfonamide Allergy Verified 08/09/23 18:08 Antibiotics) Tetracyclines AdvReac Mild CARDENAS Verified 08/09/23 18:08 Worker's Comp Is this a Worker's Comp case?: No [facility] Disclaimer: The information contained in this section may have been updated after the patient was seen, as this information can be updated by other users. 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) Smoking Status: Never smoker alcohol intake: never substance use type: denies use current occupational status: other Travel in the last 8 weeks: None household members: spouse housing: house 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 occupational exposures/hazards: No caffeine: No ROS Obtained: Yes All systems reviewed & no additional complaints except as documented Constitutional Constitutional: Reports system reviewed and no additional complaints, except as documented Eyes Eyes: Reports system reviewed and no additional complaints, except as documented ENT Ears, Nose, Mouth, and Throat: Reports system reviewed and no additional complaints, except as documented Cardiovascular Cardiovascular: Reports system reviewed and no additional complaints, except as documented Respiratory Respiratory: Reports system reviewed and no additional complaints, except as documented Gastrointestinal Gastrointestingal: Reports system reviewed and no additional complaints, except as documented Musculoskeletal Musculoskeletal: Reports system reviewed and no additional complaints, except as documented and Reports as per HPI Integumentary/Breasts Skin/Breast: Reports system reviewed and no additional complaints, except as documented, Reports as per HPI, Reports redness, Reports pruritus and Reports other Allergic/Immunologic Allergic/Immunologic: Reports system reviewed and no additional complaints, except as documented Physical Exam General General appearance: alert and in no apparent distress Respiratory Respiratory exam: Present normal lung sounds bilaterally Cardiovascular Cardiovascular exam: Present regular rate and normal rhythm Neurological Exam Neurological exam: Present alert and oriented X3 Skin Skin exam: Present warm and erythema Medical Decision Making Medical Records Medical records reviewed: Yes I reviewed the patient's medical records. Benito Inquiry Pt receiving controlled substance: No Benito was queried for this patient: No Vital Signs: 08/09/23 17:50 Temperature 98.3 F Temperature Source Oral Pulse Rate [Right Radial] 62 Respiratory Rate 18 Blood Pressure [Right Arm] 146/67 H Blood Pressure Mean [Right Arm] 93 Blood Pressure Source [Right Arm] Automatic Cuff Blood Pressure Position [Right Arm] Sitting 02 Sat by Pulse Oximetry 97 Oxygen Delivery Method Room Air Orders (Tests/Meds): ED MEDICATIONS Generic Name Dose Route Start Last Admin Trade Name Hiraq PRN Reason Stop Dose Admin Cephalexin HCl 500 mg 08/09/23 17:58 08/09/23 18:10 Cephalexin 500mg Capsule PO 08/09/23 17:59 500 mg ONCE ONE Administration
[2023-08-09 18:24] VITALS: BP 146/67; PULSE 62; RESP 18; TEMP 36.8; O2SAT 97
== END 2023-08-09 18:24 | disposition home or self-care (01) ==
PROVIDERS: Emergency Provider Nurse Practitioner Family; PCP Internal Medicine Adolescent Medicine
DX: L03.113 Cellulitis of right upper limb (principal); T63.461A Toxic effect of venom of wasps, accidental (unintentional), initial encounter
CPT/HCPCS: 99212; 99214; G0463

== ENCOUNTER 2023-09-15 11:00 | Outpatient (RCR) | payer OTHER, SELFPAY ==
--- NOTE | 2023-06-09 09:47 | HMH.PTOPEV ---
PT Outpatient Evaluation Rehab PT Outpatient Evaluation Start: 06/08/23 11:03 Freq: Status: Active Protocol: Document 06/08/23 11:06 DANIELE (Rec: 06/08/23 12:51 DANIELE [email or web address]) E-signed By Lexus Zarate, PT Outpatient Therapy Subjective History Subjective History This is an initial evaluation for Jean-Pierre Palacios , who presents with complaints of L knee pain and L neck/shoulder pain. CERVICAL: Pt reports his neck pain began upon waking up one morning in February. Pt's neck pain is all left sided and order reports L trap strain. Pt denies numbness or tingling . Pt points to lateral L UT as source of pain. Looking down and SB right are most painful. Pt denying any injury prior to neck pain. The pain is slowly worsening. History of L sided TMJ. KNEE: Pt reports his pain in laterally and below the knee cap. Pt's knee pain started in January. Descending stairs causes the most pain. Pt reports he feels unstable at times but carl any known injury or fall. Pain was gradual and insidous. No numbness or tingling. Pt has not had any imaging on either area. New diagnosis of cancer in past 12 No months? Chief Complaint Pain,Stiff,Gives out/Unstable Symptom Type Ache,Dull Symptoms Relieved By Rest/Positioning,OTC Meds Symptoms Aggravated By Supine,Standing,Physical Activity,Walking Current Functional Limitations Driving,Sleeping,Standing, Squatting,Recreation Activity, Stairs Symptom Description Constant but Variable, Intermittent Level of pain today (0-10) 4 Pain scale - at its best (0-10) 3 Pain scale - at its worst (0-10) 7 Cervical Eval Palpation Cervical Muscles L Upper Trapezius Cervical/Thoracic Palpation Findings Tenderness Posture Head/C-Spine Posture Sitting Position Flexed Head/C-Spine Posture Standing Position Flexed Flexibility Deficits Upper Trapezius Muscle Length (R) Mild Tightness,(L) Moderate Tightness Levaetor Scapulae Muscle Length (R) Mild Tightness,(L) Moderate Tightness AROM Cervical Spine Extension Active Range of 40 Motion (degrees) Cervical Spine Flexion Active Range of 60, pulling Motion (degrees) Cervical Spine Right Lateral Flexion 20, pulling, pain Active Range of Motion (degrees) Cervical Spine Left Lateral Flexion 25 Active Range of Motion (degrees) Cervical Spine Right Rotation Active WNL Range of Motion (degrees) Cervical Spine Left Rotation Active WNL Range of Motion (degrees) MMT Left Deltoid (C5) 5 Normal Biceps Brachii Strength Grade 5 Normal Triceps Brachii Strength Grade 5 Normal Shoulder/Elbow Eval Shoulder Objective Measurements Shoulder Special Tests Shoulder Lyon-Pedro Impingement Negative Left Test Shoulder Neer Impingement Test Negative Left Elbow Objective Measurements Hip/Knee Eval Gait Observation General Gait Pattern Observation No Deviations/Normal Palpation Tenderness left Knee Palpation Finding Tenderness Knee Palpation Overall Comment 02/19 TTP MMT Hip Flexion Strength Grade 4 Good Hip Abduction Strength Grade 5 Normal Hip Adduction Strength Grade 4 Good Hip Extension Strength Grade 4 Good Knee Extension Strength Grade 4 Good Knee Flexion Strength Grade 4 Good ROM Knee Extension Active Range of Motion ( WNL, nonpainful degrees) Knee Flexion Active Range of Motion ( WNL, nonpainful degrees) Special Tests Knee Dodge Test Negative Left Knee Anterior Edward Test Negative Left Knee Posterior Sag (Haswell Drawer) Test Negative Left Knee Valgus Stress Test Negative Left Knee Varus Stress Test Negative Left Knee Adelaide Test Negative Left Patella Apprehension Test Negative Left Patellar Compression Test Negative Left Lower Extremity Functional Index Activities Today, do you or would you have any difficulty at all with: a.Any of your usual work, housework or A little bit of difficulty school activities b. Your usual hobbies, recreational or A little bit of difficulty sporting activities c. Getting into or out of the bath No difficulty d. Walking between rooms No difficulty e. Putting on your shoes or socks No difficulty f. Squatting A little bit of difficulty g. Lifting an object, like a bag of No difficulty groceries from the floor h. Performing light activities around No difficulty your home i. Performing heavy activities around No difficulty your home j. Getting into or out of a car No difficulty k. Walking 2 blocks No difficulty l. Walking a mile A little bit of difficulty m. Going up or down 10 stairs (about 1 A little bit of difficulty flight of stairs) n. Standing for 1 hour No difficulty o. Sitting for 1 hour No difficulty p. Running on even ground No difficulty q. Running on uneven ground A little bit of difficulty r. Making sharp turns while running fast Moderate difficulty s. Hopping A little bit of difficulty t. Rolling over in bed No difficulty LEFI Score Lower Extremity Functional Index Score 71 Outpatient Therapy Assessment Impairments Problems/Impairmments Palpation Tenderness,Impaired Range of Motion,Impaired Strength,Impaired Squatting, Impaired Recreational Activities,Impaired Running, Subjective C/O Pain Prognosis Rehab Potential Good Clinical Impression Consistent with Diagnosis Yes Short Term Goals Number of Weeks 3 Increase Range of Motion Yes: Increase by 5 degrees cervical AROM in affected planes Decrease Subjective C/O Pain Yes: At worst 5/10 shoulder/ neck pain. Patient to be Ind w/ HEP Yes Dental Biller Goals Number of Weeks 6 Decreased Palpation Tenderness Yes: 0/4 TTP L UT Increase Range of Motion Yes: WNL and painfree cervical AROM Increase Strength Yes: LLE 5/5 MMTs to improve functional strength Improve Ability to Climb Stairs Yes: Ascend and descend 24 steps without c/o knee pain or instability. Improve LEFI Score Yes: Improve to 76/80 to improve QOL Decrease Subjective C/O Pain Yes: At worst 3/10 to improve QOL and decrease pain severity . Patient to be Ind w/ Advanced HEP Yes Outpatient Therapy Plan of Care Treatment Plan May Include Therapeutic Exercise Including Home Yes Exercise Program Manual Therapy Techniques Yes Neuromuscular Re-education Yes Therapeutic Activities to Return to Yes Previous Functional/Work Level ADL/Self Care Education Yes Dry Needling Yes Thermal Modalities Yes Electrical Stimulation Yes Ultrasound/Phonophoresis Yes Iontophoresis Yes Vasopneumatic Compression Pump Yes Massage Yes Eval/Re-Eval Yes Frequency Times per week 1-2 Duration Number of Weeks 4-6 Addendums This patient is a candidate for social No or vocational rehab? Patient/Guardian verbally acknowledges Yes understanding of treatment program and consents to further treatment? Patient/Guardian verbally acknowledges Yes understanding of diagnosis, prognosis and goals for treatment? Eval Complexity PT Charges 38059 - Moderate Complexity PHYSICIAN CERTIFICATION: I certify the specified therapy services for Elvin Paige are required, authorized, and reviewed every 30 days.
--- NOTE | 2023-07-22 10:33 | HMH.RHREAS ---
Rehab Reassessment Rehab OP Re-assessment Start: 06/08/23 11:03 Freq: Status: Active Protocol: Document 07/22/23 10:22 PHORNE (Rec: 07/22/23 10:32 PHORNE Laptop) E-signed By Luan Diego PT Lower Extremity Functional Index Activities Today, do you or would you have any difficulty at all with: a.Any of your usual work, housework or No difficulty school activities b. Your usual hobbies, recreational or No difficulty sporting activities c. Getting into or out of the bath No difficulty d. Walking between rooms No difficulty e. Putting on your shoes or socks No difficulty f. Squatting No difficulty g. Lifting an object, like a bag of No difficulty groceries from the floor h. Performing light activities around No difficulty your home i. Performing heavy activities around No difficulty your home j. Getting into or out of a car No difficulty k. Walking 2 blocks No difficulty l. Walking a mile No difficulty m. Going up or down 10 stairs (about 1 No difficulty flight of stairs) n. Standing for 1 hour No difficulty o. Sitting for 1 hour No difficulty p. Running on even ground No difficulty q. Running on uneven ground A little bit of difficulty r. Making sharp turns while running fast A little bit of difficulty s. Hopping A little bit of difficulty t. Rolling over in bed No difficulty LEFI Score Lower Extremity Functional Index Score 77 Rehab Re-assessment Subjective Subjective Pt reports, My knee feels a whole lot better, but my neck is still pretty stiff. Especially when I get up in the morning. He continues to report pain in the L side of the neck and stiffness with ADLs requiring ROM of his head and neck. Pain at worst 5/10 in neck. Objective Objective Notes MMT L knee: 5/5 throughout without pain this date. LEFS: 77/80 this date. Cervical AROM in deg: FLEX= 0- 50, EXT= 0-35, R SB= 0-45, L SB= 0-45, R ROT= 0-85, L ROT=0 -80. TTP: L UT, L lev scap, L scalene 1/4. Assessment Progress Assessment Progressing as Expected Assessment Notes Pt has not been present for treat in the past 26 days due to various reasons per his report. He has shown progress with his CROM and L LE strengthening, but continues to have pain and tenderness in the L side of his neck. He continues to need skilled therapy to return to priorlevel of pain-free function. Patient goals met ST/3 LT/7 Goals Not Met LT/7 Plan Plan Continue per initial POC. Frequency of Therapy 2 x/wk Duration of therapy 4 wks Time and Billing Re-Eval Time 13 Re-Eval Billing Units 1 PHYSICIAN CERTIFICATION: I certify the specified therapy services for Elvin aPige are required, authorized, and reviewed every 30 days.
--- NOTE | 2023-08-26 12:55 | HMH.RHREAS ---
Rehab Reassessment Rehab OP Re-assessment Start: 06/08/23 11:03 Freq: Status: Active Protocol: Document 08/26/23 09:57 DANIELE (Rec: 08/26/23 11:58 DANIELE [id number]) E-signed By Lexus Zarate, PT Lower Extremity Functional Index Activities Today, do you or would you have any difficulty at all with: a.Any of your usual work, housework or A little bit of difficulty school activities b. Your usual hobbies, recreational or A little bit of difficulty sporting activities c. Getting into or out of the bath No difficulty d. Walking between rooms No difficulty e. Putting on your shoes or socks No difficulty f. Squatting A little bit of difficulty g. Lifting an object, like a bag of No difficulty groceries from the floor h. Performing light activities around No difficulty your home i. Performing heavy activities around A little bit of difficulty your home j. Getting into or out of a car No difficulty k. Walking 2 blocks A little bit of difficulty l. Walking a mile Moderate difficulty m. Going up or down 10 stairs (about 1 A little bit of difficulty flight of stairs) n. Standing for 1 hour No difficulty o. Sitting for 1 hour No difficulty p. Running on even ground A little bit of difficulty q. Running on uneven ground Moderate difficulty r. Making sharp turns while running fast A little bit of difficulty s. Hopping A little bit of difficulty t. Rolling over in bed A little bit of difficulty LEFI Score Lower Extremity Functional Index Score 66 Rehab Re-assessment Subjective Subjective Pt reports his neck pain is 75 % better and his knee pain is 90% better. HEP compliance: When I do my exercises, I feel better. The exercises calm it down. Objective Objective Notes MMT L knee: 5/5 throughout without pain this date. LEFS: 66/80 this date. Cervical AROM in deg: FLEX= 0-50, EXT= 0-35, R SB= 0 -40, L SB= 0-40, R ROT= 0-85, L ROT=0-80. TTP: L UT, L lev scap, L scalene 1/4. Assessment Progress Assessment Slower Than Expected Assessment Notes This is a reassessment for Elvin Paige who presents to PT for c/o neck and knee pain. Since IE, pt has been seen for 4 visits that have consisted of modalities prn, education, and therapeutic exercises focusing on neck ROM, knee strength, and neck strength. Pt has not been to PT session in 28 days d/t various reasons . Pt with fair- attendance to scheduled PT visits but reports adherence to HEP. Since IE, pt with improvements in cervical ROM and strength. Pt still presents with impairments present upon last RA. Pt would continue to benefit from skilled outpatient physical therapy to address remaining deficits. Patient goals met ST/3 LT/7 Plan Plan Continue POC Frequency of Therapy 2x Duration of therapy 3 weeks Time and Billing Re-Eval Time 10 Re-Eval Billing Units 1 PHYSICIAN CERTIFICATION: I certify the specified therapy services for Elvin Paige are required, authorized, and reviewed every 30 days.
== END 2023-09-15 11:05 | disposition home or self-care (01) ==
LOC: PT 11:00
PROVIDERS: Visit Provider Internal Medicine Adolescent Medicine
DX: M25.562 Pain in left knee (principal); M54.2 Cervicalgia
CPT/HCPCS: 97010; 97014; 97110; 97140; 97163; 97164; G0283

== ENCOUNTER 2023-11-19 11:37 | Day surgery (SDC) | payer OTHER, MEDICARE, SELFPAY ==
[2023-11-11 10:59] VITALS: BMI 29.4
[2023-11-19] MEDS: LACTATED RINGERS 1000ML 1,000 ML 25 ML IV (11:52)
[2023-11-19 11:56] VITALS: BP 156/75; PULSE 64; RESP 18; TEMP 36.6; O2SAT 93
[2023-11-19 12:12] LABS: POC Glucose,Bedside 100 (70-110)
--- NOTE | 2023-11-19 12:20 | P.PNANES_ITS ---
[facility] Disclaimer: The information contained in this section may have been updated after the patient was seen, as this information can be updated by other users. 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) Family history of hypertension Family history of myocardial infarction Lung cancer Social History Smoking Status: Never smoker alcohol intake: former substance use type: denies use current occupational status: retired Travel in the last 8 weeks: None household members: spouse housing: house 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 occupational exposures/hazards: No caffeine: No H Anesthesia Checklist Patient Identification Patient Identification: Verbal (Name & ) Structural Data Admitted From: Home Planned Operative Procedure/s: egd/colonoscopy Consent for Planned Operative Procedure(s) Verified: Yes Additional verifications Anesthesia Reactions: No Hx Blood Transfusions: No Blood Transfusion Reaction: No Airway Assessment Mallampati Score:: Class II C-Spine Mobility Assessed: Yes TMJ Mobility Assessed: Yes Dentition: Good Dentition Neurological Assessment Level of Consciousness: Awake, Alert and Appropriate Anesthesia Plan Anesthesia Risk discussed: Yes Anesthesia Plan: Verified ASA Class: II Anesthesia Type: MAC
[2023-11-19 12:49] VITALS: O2SAT 93
--- NOTE | 2023-11-19 13:01 | EXP.HP ---
History of Present Illness *Admission Date: 11/19/23 *Reason for visit:: Dysphagia and positive Cologuard *History of present illness: Mr. Paige is a 68-year-old gentleman who is here for diagnostic/therapeutic upper endoscopy secondary to dysphagia and screening colonoscopy secondary to positive Cologuard. The examination is deemed medically necessary for EGD and colonoscopy. The patient has been seen, interviewed and examined prior to the procedure by both myself and the anesthesia provider. [facility] Disclaimer: The information contained in this section may have been updated after the patient was seen, as this information can be updated by other users. 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 (Updated 11/19/23 @ 13:03 by Micheal Agarwal II, MD) Dysphagia Anxiety and depression History of COVID-19 History of gastroesophageal reflux (GERD) Allergies Cataract Hyperlipidemia Hypertension Surgical History History of sinus surgery History of knee surgery History of esophagogastroduodenoscopy (EGD) History of local excision of skin lesion History of colonoscopy Family History , FENCE SETTER) Family history of hypertension Family history of myocardial infarction Lung cancer Social History Smoking Status: Never smoker alcohol intake: former substance use type: denies use current occupational status: retired Travel in the last 8 weeks: None household members: spouse housing: house 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 occupational exposures/hazards: No caffeine: No Other 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 Have you received the Flu Vaccine for this season: Yes Have you received the Pneumonia Vaccine: Yes Review of Systems Review of Systems Review of systems (narrative): Negative *Cardiovascular Comments: Negative *Gastrointestinal Comments: Negative *Genitourinary Comments: Negative *Musculoskeletal Comments: Negative *Neurologic Comments: Negative Meds Home Medications and Allergies Home Medications ?Medication ?Instructions ?Recorded ?Confirmed ?Type trazodone 50 mg tablet 50 mg PO DAILY bp 06/23/18 11/19/23 History losartan 100 mg tablet 100 mg PO DAILY 30 days #30 tabs 11/18/19 11/19/23 Rx bupropion HCl 150 mg 24 hr tablet, 450 mg PO DAILY Depression 02/25/23 11/19/23 History extended release atorvastatin 20 mg tablet 20 mg PO HS 03/02/23 11/19/23 History dapagliflozin propanediol 10 mg 10 mg PO DAILY 08/03/23 11/19/23 History tablet (Farxiga) pantoprazole 20 mg tablet,delayed 20 mg PO DAILY #30 tabs 08/03/23 11/19/23 Rx release polyethylene glycol 3350 17 17 g PO DAILY constipation #510 08/03/23 11/19/23 Rx gram/dose oral powder (Miralax) grams New Prescriptions to Start Prescriptions: Allergies Allergy/AdvReac Type Severity Reaction Status Date / Time amoxicillin [From Augmentin] Allergy Mild Rash Verified 11/19/23 11:54 clavulanic acid Allergy Mild Rash Verified 11/19/23 11:54 [From Augmentin] Penicillins Allergy hives Verified 11/19/23 11:54 Sulfa (Sulfonamide Allergy Hives Verified 11/19/23 11:54 Antibiotics) Tetracyclines AdvReac Mild CARDENAS Verified 11/19/23 11:54 Exam Data for Last 24 hours Vital signs and Labs for Last 24 Hours: Temp Pulse Resp BP Pulse Ox O2 Del Method 97.9 F 64 18 156/75 H 93 L Room Air 11/19/23 11:56 11/19/23 11:56 11/19/23 11:56 11/19/23 11:56 11/19/23 11:56 11/19/23 11:56 Laboratory Results - last 24 hr 11/19/23 12:04: POC Glucose 100 *Routine HEENT Exam Head: Present normocephalic Eye: Present EOMI and PERRL ENT: Present mucous membranes moist *Routine Neck Exam Neck: Present supple *Routine Respiratory Exam Respiratory: Present CTA bilaterally *Routine Cardiovascular Exam Cardiovascular: Present RRR *Routine Abdominal Exam Abdominal: Present soft and normoactive bowel sounds; Absent tenderness *Routine Rectal Exam Rectal:: deferred *Routine Genitalia Exam Genitalia:: deferred *Routine Extremities Exam Extremities: Absent cyanosis, clubbing or edema *Routine Skin Exam Skin: Present warm; Absent rash *Routine Neurological Exam Neurological: Present alert and oriented X3 Assessment and Plan *Assessment and plan (1) Dysphagia: Status: Acute Qualifiers: Dysphagia type: unspecified Qualified Code(s): R13.10 - Dysphagia, unspecified Category: Medical Code(s): R13.10 - Dysphagia, unspecified (2) Chronic constipation: Status: Acute Category: Medical Code(s): K59.09 - Other constipation (3) Positive colorectal cancer screening using Cologuard test: Status: Acute Category: Medical Code(s): R19.5 - Other fecal abnormalities (4) GERD (gastroesophageal reflux disease): Status: Acute Qualifiers: Esophagitis presence: esophagitis presence not specified Qualified Code(s): K21.9 - Gastro-esophageal reflux disease without esophagitis Category: Medical Code(s): K21.9 - Gastro-esophageal reflux disease without esophagitis Plan A/P: 1. Dysphagia/GERD and positive Cologuard is the preprocedural diagnosis. The patient will be anesthetized/sedated using MAC sedation. The patient has been seen and examined. Cardiac and lung assessment prior to the examination is stable. Proceed with planned EGD/colonoscopy
--- NOTE | 2023-11-19 13:09 | HMH.PROCNOTE ---
[facility] Procedure Note Date: 11/19/23 Time: 13:09 Procedure Note:: Upper Endoscopy Procedure Report: Esophagogastroduodenoscopy with cold biopsies and TTS balloon dilation Endoscopost: Micheal Agarwal II, MD Referring Physician: Francis Brown M.D. Date of Procedure: November 19, 2023 Equipment: Olympus GIF 190 standard upper endoscope Sedation: MAC sedation Indications: Mr. Wynn is a 68-year-old gentleman with a history of intermittent dysphagia to solid foods. The patient did have an EGD and colonoscopy in April 2023 (Ronald Delcid M.D.) and had stomach biopsies but no dilation. The patient does have GERD which is controlled with pantoprazole. He has had esophageal dilation in the past. He reports no abdominal pain, bloating or dyspepsia. Biopsies taken by Dr. Ronald Delcid M.D. and April of the stomach showed no H. pylori. Procedure: Prior to the procedure, a history and physical exam was performed, and patient's medications and allergies were reviewed. The risks, benefits and alternatives of the sedation and procedure were discussed with the patient. All questions were answered and informed consent was obtained. The patient was brought to the procedure room. Patient identification and proposed procedure were verified by the physician and the nurse. The patient was placed in a left lateral decubitus position and the scope was passed under direct vision. Throughout the procedure, the patient's blood pressure, pulse, and oxygen saturations were monitored continuously. The upper GI endoscopy was accomplished without difficulty. The patient tolerated the procedure well. Findings: The scope was passed directly into the upper esophagus and advanced to the third portion of the duodenum. The post bulbar duodenum and duodenal bulb were normal with normal mucosa and conniventes. The scope was withdrawn through a normal duodenal bulb and pylorus into the stomach. There was some mild reactive gastropathy of the antrum. There was some mild chronic gastritis of the body and fundus (type A gastritis) and biopsies were taken from the antrum and lesser curvature to rule out H. pylori. The scope was then retroflexed and there was a small 2 cm hiatal hernia. The scope was then withdrawn into the esophagus. There was a distal esophageal ring/Schatzki's ring that did not appear to be significant. There was no evidence of reflux esophagitis or Díaz's. There were tertiary contractions and evidence of moderate esophageal dysmotility. The entire esophagus was dilated to 60 Mauritanian/20 mm with a TTS hydrostatic balloon. There was minimal resistance. The remainder of the esophageal mucosa was normal. Impression: 1. Insignificant Schatzki's ring with small 2 cm hiatal hernia status post dilation to 20 mm 2. Nonerosive GERD with mild to moderate esophageal dysmotility 3. Mild chronic type A gastritis?rule out H. pylori Plan: I will follow-up the biopsies. We will discuss whether he should be on long-term PPI therapy. He does have uncomplicated GERD. I will proceed with colonoscopy secondary to the positive Cologuard.
--- NOTE | 2023-11-19 13:16 | HMH.PROCNOTE ---
[facility] Procedure Note Date: 11/19/23 Time: 13:17 Procedure Note:: Flexible sigmoidoscopy (attempted and aborted colonoscopy) Endoscopist: Micheal Agarwal II, MD Referring physician: Francis Brown M.D. Date of Procedure: November 19, 2023 Equipment: Olympus 180 variable stiffness pediatric colonoscope Sedation: MAC sedation Indication: Mr. Wynn is a 68-year-old gentleman who is here for screening colonoscopy. The patient had attempted colonoscopy in April 2023 for a positive Cologuard and the bowel preparation was exceedingly poor so the colonoscopy was aborted. He is now here for second attempted colonoscopy. He reports no abdominal pain, weight loss, change in his bowel habits or rectal bleeding. He does have some chronic constipation. He reports no family history of colon cancer. Procedure: Prior to the procedure, a history and physical exam was performed, and patient's medications and allergies were reviewed. The risks, benefits and alternatives of the sedation and procedure were discussed with the patient. All questions were answered and informed consent was obtained. The patient was brought to the procedure room. Patient identification and proposed procedure were verified by the physician and the nurse. The patient was placed in a left lateral decubitus position and the scope was passed under direct vision. Throughout the procedure, the patient's blood pressure, pulse, and oxygen saturations were monitored continuously. The colonoscopy was accomplished without difficulty. The patient tolerated the procedure well. Findings: On digital rectal examination there was normal rectal tone and there were no external hemorrhoids. The scope was then inserted through the anal canal into the rectum and advanced to 30 cm. The scope could not be advanced more proximally due to solid brown stool and very poor bowel preparation. The procedure was aborted. The remainder of the rectosigmoid and rectum were normal. Impression: 1. Unprepped colonoscopy Plan: Repeat colonoscopy with improved bowel preparation soon.
[2023-11-19 13:22] VITALS: BP 96/51; PULSE 72; TEMP 36.5; O2SAT 93
[2023-11-19 13:32] VITALS: BP 112/42; PULSE 74; O2SAT 94
[2023-11-19 13:42] VITALS: BP 118/58; PULSE 74; O2SAT 94
[2023-11-19 13:51] VITALS: BP 120/60; PULSE 80; O2SAT 96
--- NOTE | 2023-11-19 14:16 | SUR.PHASEII ---
Call made to Amara in office to update since colonoscopy was not completed, she states she will call patient to reschedule and go over prep instructions.
== END 2023-11-19 14:20 | disposition home or self-care (01) ==
PROVIDERS: PCP Internal Medicine Adolescent Medicine; Visit Provider Internal Medicine Gastroenterology
PROC: 0DJ08ZZ Inspection of Upper Intestinal Tract, Via Natural or Artificial Opening Endoscopic (ICD-10-PCS; CPT 43235; principal; 2023-11-19 13:00)
DX: R13.10 Dysphagia, unspecified (principal); K59.09 Other constipation; R19.5 Other fecal abnormalities; K21.9 Gastro-esophageal reflux disease without esophagitis; K22.2 Esophageal obstruction; K44.9 Diaphragmatic hernia without obstruction or gangrene; K22.4 Dyskinesia of esophagus; K29.70 Gastritis, unspecified, without bleeding; Z53.8 Procedure and treatment not carried out for other reasons
CPT/HCPCS: 45330; 82962; 99221; C1726; J7120

== ENCOUNTER 2024-04-21 08:47 | Day surgery (SDC) | payer MEDICARE, OTHER, SELFPAY ==
[2024-04-19 11:32] VITALS: BMI 30.1
[2024-04-21 09:52] VITALS: BP 127/76; PULSE 73; RESP 18; TEMP 36.7; O2SAT 94
[2024-04-21 09:58] LABS: POC Glucose,Bedside 85 (70-110)
[2024-04-21] MEDS: LACTATED RINGERS 1000ML 1,000 ML 50 ML IV (09:59)
--- NOTE | 2024-04-21 10:13 | P.PNANES_ITS ---
[facility] Disclaimer: The information contained in this section may have been updated after the patient was seen, as this information can be updated by other users. 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 Hx of cataract Diabetes mellitus Dysphagia Anxiety and depression History of COVID-19 History of gastroesophageal reflux (GERD) Allergies Cataract Hyperlipidemia Hypertension Surgical History Hx of shoulder surgery History of sinus surgery History of knee surgery History of esophagogastroduodenoscopy (EGD) History of local excision of skin lesion History of colonoscopy Family History Other Family history of hypertension Family history of myocardial infarction Lung cancer Social History Smoking Status: Never smoker alcohol intake: former substance use type: denies use current occupational status: retired Travel in the last 8 weeks: None household members: spouse housing: house 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 occupational exposures/hazards: No caffeine: Yes Have you lived/traveled outside [place] in past 30 days?: No Contact w/someone who lives/traveled outside [place] past 30 days?: No Exposure to someone with infectious disease in past 14 days?: No Do you have a fever (greater than 100.4 F or 38 C)?: No Have you tested positive for COVID-19: No Exposed to someone with COVID-19 in past 14 days?: No Do you have a sore throat?: No Do you have a cough?: No Do you have any weakness?: No Do you have any diarrhea?: No Are you experiencing any unusual bleeding?: No Do you have any muscle aches/pain?: No Do you have any abdominal pain?: No Are you experiencing loss of taste or smell?: No [facility] Anesthesia Checklist Patient Identification Patient Identification: Arm Band Structural Data Admitted From: Home Planned Operative Procedure/s: Colonoscopy Consent for Planned Operative Procedure(s) Verified: Yes Verified Documents: Surgical Consent and History and Physical NPO Status Verified Time NPO: 08:00 (finished prep) Additional verifications Anesthesia Reactions: No Hx Blood Transfusions: No Blood Transfusion Reaction: No Airway Assessment Mallampati Score:: Class II C-Spine Mobility Assessed: Yes TMJ Mobility Assessed: Yes Dentition: Good Dentition Neurological Assessment Level of Consciousness: Awake, Alert and Appropriate Anesthesia Plan Anesthesia Risk discussed: Yes Anesthesia Plan: Verified ASA Class: II Anesthesia Type: MAC
--- NOTE | 2024-04-21 10:55 | EXP.HP ---
History of Present Illness *Admission Date: 04/21/24 *Reason for visit:: Screening colonoscopy/positive Cologuard *History of present illness: Mr. Paige is a 69-year-old gentleman with positive Cologuard who is here for screening colonoscopy. The examination is deemed medically necessary for screening colonoscopy. The patient has been seen, interviewed and examined prior to the procedure by both myself and the anesthesia provider. [facility] Disclaimer: The information contained in this section may have been updated after the patient was seen, as this information can be updated by other users. 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 Hx of cataract Diabetes mellitus Dysphagia Anxiety and depression History of COVID-19 History of gastroesophageal reflux (GERD) Allergies Cataract Hyperlipidemia Hypertension Surgical History Hx of shoulder surgery History of sinus surgery History of knee surgery History of esophagogastroduodenoscopy (EGD) History of local excision of skin lesion History of colonoscopy Family History Other Family history of hypertension Family history of myocardial infarction Lung cancer Social History Smoking Status: Never smoker alcohol intake: former substance use type: denies use current occupational status: retired Travel in the last 8 weeks: None household members: spouse housing: house 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 occupational exposures/hazards: No caffeine: Yes Have you lived/traveled outside [place] in past 30 days?: No Contact w/someone who lives/traveled outside [place] past 30 days?: No Exposure to someone with infectious disease in past 14 days?: No Do you have a fever (greater than 100.4 F or 38 C)?: No Have you tested positive for COVID-19: No Exposed to someone with COVID-19 in past 14 days?: No Do you have a sore throat?: No Do you have a cough?: No Do you have any weakness?: No Do you have any diarrhea?: No Are you experiencing any unusual bleeding?: No Do you have any muscle aches/pain?: No Do you have any abdominal pain?: No Are you experiencing loss of taste or smell?: No Other 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 Have you received the Flu Vaccine for this season: Yes Have you received the Pneumonia Vaccine: Yes Review of Systems Review of Systems Review of systems (narrative): Negative *Cardiovascular Comments: Negative *Gastrointestinal Comments: Negative *Genitourinary Comments: Negative *Musculoskeletal Comments: Negative *Neurologic Comments: Negative Meds Home Medications and Allergies Home Medications ?Medication ?Instructions ?Recorded ?Confirmed ?Type trazodone 50 mg tablet 50 mg PO DAILY bp 06/23/18 04/19/24 History losartan 100 mg tablet 100 mg PO DAILY 30 days #30 tabs 11/18/19 04/19/24 Rx bupropion HCl 150 mg 24 hr tablet, 450 mg PO DAILY Depression 02/25/23 04/19/24 History extended release (Wellbutrin XL) atorvastatin 20 mg tablet 20 mg PO HS 03/02/23 04/19/24 History dapagliflozin propanediol 10 mg 10 mg PO DAILY 08/03/23 04/19/24 History tablet (Farxiga) pantoprazole 20 mg tablet,delayed 20 mg PO DAILY #30 tabs 08/03/23 04/19/24 Rx release polyethylene glycol 3350 17 17 g PO DAILY constipation #510 08/03/23 04/19/24 Rx gram/dose oral powder (Miralax) grams sodium,potassium,mag sulfates 17.5 See Rx Instructions PO .COMPLEX 04/13/24 Rx gram-3.13 gram-1.6 gram oral soln #354 mL (Suprep Bowel Prep Kit) New Prescriptions to Start Prescriptions: Allergies Allergy/AdvReac Type Severity Reaction Status Date / Time amoxicillin (From Augmentin) Allergy Mild Rash Verified 02/18/24 11:39 clavulanic acid (From Allergy Mild Rash Verified 02/18/24 11:39 Augmentin) Penicillins Allergy hives Verified 02/18/24 11:39 Sulfa (Sulfonamide Allergy Hives Verified 02/18/24 11:39 Antibiotics) Tetracyclines AdvReac Mild CARDENAS Verified 02/18/24 11:39 Exam Data for Last 24 hours Vital signs and Labs for Last 24 Hours: Temp Pulse Resp BP Pulse Ox O2 Del Method 98.1 F 73 18 127/76 94 L Room Air 04/21/24 09:52 04/21/24 09:52 04/21/24 09:52 04/21/24 09:52 04/21/24 09:52 04/21/24 09:52 Laboratory Results - last 24 hr 04/21/24 09:51: POC Glucose 85 I & O for Last 24 hours: Intake & Output 04/18/24 04/19/24 04/20/24 04/21/24 23:59 23:59 23:59 23:59 Weight 210 lb *Routine HEENT Exam Head: Present normocephalic Eye: Present EOMI and PERRL ENT: Present mucous membranes moist *Routine Neck Exam Neck: Present supple *Routine Respiratory Exam Respiratory: Present CTA bilaterally *Routine Cardiovascular Exam Cardiovascular: Present RRR *Routine Abdominal Exam Abdominal: Present soft and normoactive bowel sounds; Absent tenderness *Routine Rectal Exam Rectal:: deferred *Routine Genitalia Exam Genitalia:: deferred *Routine Extremities Exam Extremities: Absent cyanosis, clubbing or edema *Routine Skin Exam Skin: Present warm; Absent rash *Routine Neurological Exam Neurological: Present alert and oriented X3 Assessment and Plan *Assessment and plan (1) Positive colorectal cancer screening using Cologuard test: Status: Acute Category: Medical Code(s): R19.5 - Other fecal abnormalities Plan A/P: 1. Positive Cologuard is the preprocedural diagnosis. The patient will be anesthetized/sedated using MAC sedation. The patient has been seen and examined. Cardiac and lung assessment prior to the examination is stable. Proceed with planned screening colonoscopy
[2024-04-21 11:04] VITALS: O2SAT 98
--- NOTE | 2024-04-21 11:08 | HMH.PROCNOTE ---
[facility] Procedure Note Date: 04/21/24 Time: 11:29 Procedure Note:: Colonoscopy Procedure Report: Colonoscopy with cold snare polypectomy and cold biopsies Endoscopist: Micheal Agarwal II, MD Referring physician: Francis Brown M.D. Date of Procedure: April 21, 2024 Equipment: Olympus 190 variable stiffness pediatric colonoscope Sedation: MAC sedation Indication: Mr. Wynn is a 69-year-old gentleman who is here for screening colonoscopy secondary to a positive Cologuard test. He had 2 prior attempted colonoscopies that were not prepped. The patient reports no rectal bleeding, hematochezia or melena. He reports no abdominal pain, weight loss or change in bowel habits. He reports no family history of colon cancer. This is his first colonoscopy. He did have EGD with esophageal dilation in November 2023 and has improved with his dysphagia. Procedure: Prior to the procedure, a history and physical exam was performed, and patient's medications and allergies were reviewed. The risks, benefits and alternatives of the sedation and procedure were discussed with the patient. All questions were answered and informed consent was obtained. The patient was brought to the procedure room. Patient identification and proposed procedure were verified by the physician and the nurse. The patient was placed in a left lateral decubitus position and the scope was passed under direct vision. Throughout the procedure, the patient's blood pressure, pulse, and oxygen saturations were monitored continuously. The colonoscopy was accomplished without difficulty. The patient tolerated the procedure well. Findings: On digital rectal examination there was normal rectal tone. There were no external hemorrhoids. The colonoscope was introduced through the anal canal to the rectum and advanced to the cecum. The ileocecal valve and appendiceal orifice were identified. The scope was advanced a short distance into the ileum which appeared grossly normal. The scope was then withdrawn into the colon. Within the cecum there was extrinsic submucosal compression with a glossy rounded lesion behind appendiceal orifice and arising from the appendiceal orifice with mucus extravasation from the appendiceal orifice. The cold biopsy forceps was utilized to biopsy within the appendiceal orifice. There were 3 colon polyps (ascending x 2 (5 and 9 mm) and transverse x 1 (4 mm)). These were removed via cold snare polypectomy. The remaining ascending and transverse colon and mucosa were grossly normal. There were scattered diverticuli throughout the descending and sigmoid colon (LEFT colon). The rectum itself was normal. Upon retroflexion within the rectum there were grade 2 internal hemorrhoids. The preparation was excellent throughout with Belmont Preparation Score of 9. The cecal time was 17 minutes. Impression: 1. 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 Colonic polyps x 3 3. Left-sided diverticulosis 4. 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 We will plan to do a CAT scan of the abdomen to more accurately diagnose whether this could be a mucocele because these have a risk of malignancy or perforation within the abdominal cavity resulting in a condition called pseudomyxoma peritonitei. I will obtain CAT scan today and then referral to surgery. I will follow-up the polyp histology and recommend repeat surveillance colonoscopy again in 3 years. I would encourage psyllium bulking fiber supplementation on a maintenance basis.
[2024-04-21 11:33] VITALS: BP 123/62; PULSE 81; RESP 16; TEMP 36.3; O2SAT 93
--- NOTE | 2024-04-21 11:35 | CT_ITS ---
FINAL REPORT TECHNIQUE: Axial CT of the abdomen and pelvis, with oral and IV contrast. This study was performed with techniques to keep radiation doses as low as reasonably achievable, (ALARA). Individualized dose reduction techniques using automated exposure control or adjustment of mA and/or kV according to the patient's size were employed. CLINICAL HISTORY: Appendiceal mucinous neoplasm post colonoscopy COMPARISON: None FINDINGS: CT ABDOMEN AND PELVIS WITH ORAL AND IV CONTRAST: Abdomen: Lung bases are clear. Liver has an unremarkable CT appearance. The spleen, pancreas and adrenal glands are unremarkable. Tiny calcified stones are noted in the gallbladder. No adenopathy or ascites is present in the upper abdomen. Precontrast imaging shows no renal stone disease. Postcontrast imaging of the kidneys shows no mass or obstruction. No bowel obstruction or fluid collection is seen. Pelvis: There is soft tissue thickening in the appendiceal base, with wall thickening and enlargement correlating to the patient's clinical diagnosis of appendiceal carcinoma. The appendiceal base measures up to 15 mm in diameter. No adjacent adenopathy is identified. There is mild prostate enlargement. Pelvic bowel loops are unremarkable. No fluid collection or adenopathy is seen. 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 No evidence of metastatic disease in the abdomen or pelvis is identified. Reviewed, Interpreted and Dictated by Darleen Puentes MD Transcribed by Johanny Jeffers Authenticated and [facility]
[2024-04-21 11:43] VITALS: BP 113/69; PULSE 77; RESP 16; O2SAT 93
[2024-04-21 11:53] VITALS: BP 118/70; PULSE 68; RESP 16; O2SAT 94
[2024-04-21 12:03] VITALS: BP 122/65; PULSE 68; RESP 16; O2SAT 96
--- NOTE | 2024-04-21 12:28 | SUR.PHASEII ---
1220: Pt finished PO contrast. Radiology staff notified.
[2024-04-21 12:39] LABS: Chloride 104 mmol/L (98-107)
[2024-04-21 12:40] LABS: Potassium 4.3 mmoL/L (3.5-5.1); Sodium 138 mmol/L (136-145)
[2024-04-21 12:42] LABS: Blood Urea Nitrogen 18 mg/dl (9-20); Creatinine Clearance Estimated 97 mL/min (50-200); Estimated Glomerular Filt Rate 75 ml/min (>60); GFR (African American) 90 ML/MIN (>60)
[2024-04-21 12:43] LABS: Anion Gap 12.3 mEq/L (5-15); Carbon Dioxide 26 mmol/L (22.0-30.0); Glucose 67 mg/dl (74-100)
[2024-04-21] MEDS: IOPAMIDOL-370 (76%);100ML BOTTLE 75 ML IV (14:45)
[2024-04-21] MEDS: DIATRIZOATE MEGLUMINE(GASTROGRAFIN) 66%-10% 120ML 120 ML PO (14:50)
--- NOTE | 2024-04-21 15:17 | SUR.PHASEII ---
1420: Pt picked up by radiology staff with IV for CT scan. Pt will be d/c from radiology.
[2024-04-22 09:14] LABS: CEA 1.4 ng/mL (0.0-4.7)
== END 2024-04-21 14:20 | disposition home or self-care (01) ==
PROVIDERS: PCP Internal Medicine Adolescent Medicine; Visit Provider Internal Medicine Gastroenterology
PROC: 0DJD8ZZ Inspection of Lower Intestinal Tract, Via Natural or Artificial Opening Endoscopic (ICD-10-PCS; CPT 45378; principal; 2024-04-21 10:00)
DX: K63.5 Polyp of colon (principal); K57.30 Diverticulosis of large intestine without perforation or abscess without bleeding; K64.1 Second degree hemorrhoids; D49.0 Neoplasm of unspecified behavior of digestive system; R19.5 Other fecal abnormalities; Z12.11 Encounter for screening for malignant neoplasm of colon; E11.9 Type 2 diabetes mellitus without complications; Z79.84 Long term (current) use of oral hypoglycemic drugs
CPT/HCPCS: 45380; 45385; 36415; 74177; 80048; 82378; 82962; 88305; J7120; Q9963; Q9967

== ENCOUNTER 2024-05-20 11:36 | Outpatient (CLI) | payer MEDICARE, SELFPAY ==
--- NOTE | 2024-05-20 12:12 | ECG_ITS ---
APPROVED REPORT Exam: Resting ECG HR:68 bpm ECG Measurements Heart Rate 68 AXES [place] 183 P 26 QRSd 87 QRS 41 QT 370 T 42 QTc 386 Conclusion SINUS RHYTHM NORMAL ECG UNCONFIRMED REPORT Electronically signed by : Francis Brown MD 05/21/2024 09:55:38
[2024-05-20 12:23] LABS: Basophils # 0.1 K/mm3 (0-0.2); Basophils % 1.6 % (0.1-2.0); Eosinophils # 0.7 K/mm3 (0.0-0.4); Eosinophils % 8.6 % (0.1-12.0); Hematocrit 49.2 % (42.0-52.0); Hemoglobin 16.6 g/dL (14.1-18.0); Lymphocytes # 1.5 K/mm3 (0.7-4.5); Lymphocytes % 19.3 % (10-50); Mean Corpuscular HGB Conc 33.7 g/dL (31.8-35.4); Mean Platelet Volume 9.6 fl (7.4-10.4); Monocytes # 0.8 K/mm3 (0.1-1.0); Monocytes % 9.8 % (1.7-9.3); Neutrophils # 4.8 K/mm3 (1.8-7.8); Neutrophils % 60.4 % (37.0-80.0); Platelet Count 272 K/mm3 (142-424); Red Blood Count 5.18 M/mm3 (4.60-6.20); Red Cell Distribution Width 12.4 % (11.5-17.5); White Blood Count 7.9 K/mm3 (4.8-10.8)
[2024-05-20 12:29] LABS: Albumin Level 4.2 g/dl (3.5-5.0); Chloride 104 mmol/L (98-107); Sodium 138 mmol/L (136-145)
[2024-05-20 12:32] LABS: Alanine Aminotransferase 41 U/L (12-78); Albumin/Globulin Ratio 1.5 (1.1-1.8); Alkaline Phosphatase 60 U/L (38-126); Aspartate Amino Transferase 35 U/L (17-59); Bilirubin,Total 0.8 mg/dl (0.2-1.3); Blood Urea Nitrogen 18 mg/dl (9-20); Calcium 9.6 mg/dl (8.4-10.2); Carbon Dioxide 25 mmol/L (22.0-30.0); Estimated Glomerular Filt Rate 84 ml/min (>60); GFR (African American) 102 ML/MIN (>60); Globulin 2.8 g/dL (1.3-3.2); Glucose 173 mg/dl (74-100)
--- OUTSIDE RECORDS SUMMARY | 2024-05-26 19:34 | XMS_ITS | Data Portability ---
Author Organization [facility] & [facility] ADMIN Address [address] [place] [address] Care Team Providers Care Spanish Medical Interpreter Name Role Phone PRIYA CONCEPCION Primary Care Provider [phone] Assessment No assessment recorded. Plan of Treatment Reminders Order Date Submit Date Provider Last Modified By Organization Details Last Modified Time Details Appointments None record ed. Lab None record ed. Referral None record ed. Procedures None record ed. Surgeries None record ed. Imaging None record ed. Medication Orders None record ed. Patient TargetsNo targets recorded. Patient Instructions Encounter Date Encounter Id Patient Instructions Last Modified By Organization Details Last Modified Time 02/25/2022 [id number] 1-Discussed findings with Mr. Paige. 2-Rec new hearing aids; he will pursue through his health insurance. 3-F/u hearing testing annually to monitor. mandy Not available 02/25/2022 10:55:32 03/20/2022 [id number] 1-Mr. Paige was fit with Unitron Moxi B3-R PREETI hearing aids. 2-F/u prn. [email or web address] Not available 03/20/2022 09:10:51 Reason for Referral None Reported. Results Created Date Observation Date Name Description Value Unit Range Abnormal Flag Note LastModifiedBy Organization Detail LastModifiedTime 02/25/19 23 02/25/2022 audio gram No observ ation record ed. BARCODE Not Available 2022 14:52:50 Result Notes None recorded. Problems Name Problem SNOMED Code Status Onset Date Resolution Date Notes Provider Name and Address Organization Details Recorded Time Sensorineural hearing loss 17242106 Active 2022 JULIET CRAWLEY, AUD [address] [facility], [place], [address] , [facility] & [place] 02/02/202 3 09:10:16 Problem Notes None recorded. Procedures Surgical History None recorded. Imaging Results Imaging Date Name Status LastModified by Organ ation Details LastModified Time 02/25/2022 audiogram completed BARCODE Information no t available 02/25/2022 14:52:50 Procedure Notes None recorded. Medical Equipment None Reported. Medications Name Sig Start Date Stop Date Status Note LastModified by Organization Details LastModified Time doxycycline hyclate 100 mg capsule TAKE ONE CAPSULE BY MOUTH TWICE DAILY FOR 7 DAYS -- FINISH ALL MEDICINE -- active Not Available Not Available No t Available atorvastatin 20 mg tablet TAKE ONE TABLET BY MOUTH EVERY DAY active Not Available Not Available No t Available trazodone 50 mg tablet TAKE 1 TABLET AT BEDTIME active Not Available Not Available No t Available doxycycline monohydrate 100 mg tablet TAKE ONE TABLET BY MOUTH TWICE DAILY FOR 10 DAYS -- FINISH ALL MEDICINE -- active Not Available Not Available No t Available pantoprazole 20 mg tablet,delayed release TAKE ONE TABLET BY MOUTH EVERY DAY active Not Available Not Available No t Available cephalexin 500 mg capsule TAKE ONE CAPSULE BY MOUTH TWICE DAILY FOR 10 DAYS -- FINISH ALL MEDICINE -- active Not Available Not Available No t Available erythromycin 5 mg/gram (0.5 %) eye ointment APPLY A THIN LAYER (1/4 INCH STRIP) INTO AFFECTED EYE(S) TWICE DAILY 3 DAYS BEFORE SURGERY BUT NOT THE DAY OF SURGERY active Not Available Not Available No t Available diclofenac sodium 75 mg tablet,delayed release TAKE ONE TABLET BY MOUTH TWICE DAILY FOR 7 DAYS THEN take TWICE DAILY NEEDED active Not Available Not Available No t Available epinephrine 0.3 mg/0.3 mL injection, auto-injector USE DIRECTED active Not Available Not Available No t Available polyethylene glycol 3350 17 gram/dose oral powder DISSOLVE 17 GRAMS OF POWDER INTO 4 TO 8 OUNCES OF WATER, JUICE, SODA, COFFEE, OR TEA THEN DRINK EVERY DAY FOR constipat ion. active Not Available Not Available No t Available losartan 100 mg tablet TAKE 1 TABLET ONCE DAILY active Not Available Not Available No t Available cyclobenzaprin e 5 mg tablet TAKE ONE TABLET BY MOUTH EVERY DAY AT BEDTIME NEEDED active Not Available Not Available No t Available bupropion HCl XL 150 mg 24 hr tablet, extended release TAKE 3 TABLETS EVERY 24 HOURS BY ANURAG/LISSET SHEN active Not Available Not Available No t Available Farxiga 10 mg tablet TAKE ONE TABLET BY MOUTH EVERY DAY active Not Available Not Available No t Available Vitals None Recorded Social History None recorded. Functional Status None recorded. Mental Status None recorded. Family History Relationship Description Onset Age of this Age Resolved Age Notes LastModified by Organization Details LastModified Time Mother Heart disease pt. added direct ly (02/22) [email or web address] Not available 02/22/2022 12:04:45 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 No medical history recorded. Past Encounters Encounter ID Performer Location Encounter Start Date Encounter Closed Date Diagnosis/Indication Diagnosis SNOMED-CT Code Diagnosis ICD10 Code Diagnosis Note [id number] [facility]Y [facility] [place] [id number] [facility], [facility] [place] [phone] 02/25/2022 09:57:44 02/25/2022 10:24:52 Sensorineural hearing loss 30163115 H90.3 [id number] [facility] [place] [address] [place] [id number] 03/20/2022 08:15:03 03/20/2022 08:59:26 Sensorineural hearing loss 91646620 H90.3 [id number] [facility] [address] [place] [place] [address] 05/03/2024 15:18:33 05/03/2024 15:31:30 Sensorineural hearing loss 68928505 H90.3 Health Concerns Section Related Observation LastModified by Organization Detai ls LastModified Time None Recorded Concern Status LastModified by Organization Details LastModified Time None Recorded Advance Directives Directive None Recorded Payers Encounter Date Sequence Insurance Name Policy Number Policy Carney Covered Member ID Carney Member ID Guarantor Name 02/25/2022 1 [employer] [facility] - [place] PRIOR TO 2024 (PPO) Elvin Paige [id number] Elvin Paige 03/20/2022 1 [employer] - [place] PRIOR TO 2024 (PPO) Elvin Paige [id number] Elvin Paige 05/03/2024 1 [facility] (MEDICARE REPLACEMENT/A DVANTAGE - PPO) [id number] Elvin Paige [id number] Elvin Paige Notes Date Note Type Note Provider Name and Address Organization Details Recorded Time 02/25/2022 text/html Mr. Paige was seen today for an annual audiologic evaluation due to long-standing/grad ual hearing loss bilaterally. Mr. Paige is currently wearing Unitron Moxi PREETI hearing aids that he purchased in 2019. He reports that his hearing loss has been ongoing since childhood. He denies tinnitus, dizziness, drainage, aural fullness/pressure, and excessive noise exposure. Otoscopic inspection was unremarkable bilaterally. BRADY ASKEW [address], [place], [address], [facility] & [place] 02/25/2022 10:55:41 03/20/2022 text/html Mr. Paige was seen today for a hearing aid fitting. BRADY ASKEW [address], [place], [address], [facility] & [place] 03/20/2022 09:11:05 05/03/2024 text/html Patient was seen today for a hearing aid service. Cleaned and adjusted hearing aids this date. BRADY ASKEW [address], [place], [address], [facility] & [place] 05/03/2024 15:54:13
--- OUTSIDE RECORDS SUMMARY | 2024-05-26 19:34 | XMS_ITS | Continuity of Care Document ---
Author Organization [facility] & [place], [facility] Sarah Address [address] [place] [address] Care Team Providers Care Steam Trap Worker Name Role Phone PRIYA CONCEPCION Primary Care Provider Assessment No assessment recorded. Plan of Treatment Reminders Order Date Submit Date Provider Last Modified By Organization Details Last Modified Time Details Appointments None record ed. Lab None record ed. Referral None record ed. Procedures None record ed. Surgeries None record ed. Imaging None record ed. Medication Orders None record ed. Patient TargetsNo targets recorded. Patient InstructionsNo instructions recorded. Reason for Referral None Reported. Problems Name Problem SNOMED Code Status Onset Date Resolution Date Notes Provider Name and Address Organization Details Recorded Time Sensorineural hearing loss [id number] Active 2022 JULIET CRAWLEY, AUD [address] [facility], [place], [address] , [facility] & [place] 3 09:10:16 Problem Notes None recorded. Medical Equipment None Reported. [...] SNOMED-CT Code Diagnosis ICD10 Code Diagnosis Note [id number] [facility]Y [facility] [place] [address] [facility] [address] [place] [address] 05/03/2024 15:18:33 05/03/2024 15:31:30 Sensorineural hearing loss 97344866 H90.3 Health Concerns Section Related Observation LastModified by Organization Shruthi headley LastModified Time None Recorded Concern Status LastModified by Organization Details LastModified Time None Recorded Payers Encounter Date Sequence Insurance Name Policy Number Policy Carney Covered Member ID Carney Member ID Guarantor Name 05/03/2024 1 [facility] (MEDICARE REPLACEMENT/A DVANTAGE - PPO) [id number] Elvin Paige [id number] Elvin Paige Notes Date Note Type Note Provider Name and Address Organization Details Recorded Time 05/03/2024 text/html Patient was seen today for a hearing aid service. Cleaned and adjusted hearing aids this date. JULIET CRAWLEY, AUD [address] , [place], [address], [facility] - [place] - [place] & [place] 05/03/2024 15:54:13
--- OUTSIDE RECORDS SUMMARY | 2024-05-26 19:34 | XMS_ITS | Data Portability ---
Author Organization [facility] KATIANA Gonzalez [place] CLOSED Address [address] [facility] [address] [place] [address] Care Team Providers Care Digital Associate Media Director Name Role Phone ELAFREDERICK PRIYA Primary Care Provider [phone] Assessment No assessment recorded. Plan of Treatment [...] instructions recorded. Reason for Referral None Reported. Procedures Surgical History Date Name Laterality Status Provider Name and Address Organization Details Recorded Time DAK - Destruction BN Lesions completed Cathi Ashby [facility] 05/18/2023 13:45:42 Imaging Results None recorded. Procedure Notes None recorded. Medical Equipment None Reported. Allergies Allergen ID Allergen Name Allergen Category Reaction Reaction Severity Criticality Documentation Date Start Date Code Code System Note Provider Name and Address Organization Details Recorded Time 181831 Product containin g penicilli n (product) medicatio n Not available Not available Not available 05/18/2023 00357 8001 SNOMED Maday [facility] 13:25:07 225434 Substance with sulfonami de structure and antibacte rial mechanism of action (substanc e) medicatio n Not available Not available Not available 05/18/2023 22055 8003 SNOMED Maday [facility] 13:25:11 321246 Medicinal product containin g tetracycl ine structure and acting as antibacte rial agent (product) medicatio n Not available Not available Not available 05/18/2023 68452 1004 SNOMED Maday Larrykinson [facility] 13:25:20 365928 Augmentin medicatio n Not available Not available Not available 05/18/2023 58404 2 RxNorm Madayanjelica LarryBarajas [facility] 13:25:26 Medications Name Sig Start Date Stop Date Status Note LastModified by Organization Details LastModified Time atorvastatin 20 mg tablet Take 1 tablet every day by oral route. active Not Available Not Available No t Available trazodone 50 mg tablet Take 1 tablet every day by oral route. active Not Available Not Available No t Available losartan 100 mg tablet Take 1 tablet every day by oral route. active Not Available Not Available No t Available bupropion HCl 150 mg tablet,12 hr sustained-rele ase(smoking deterrent) Take 1 tablet 3 times a day by oral route. active Not Available Not Available No t Available Vitals None Recorded Social History Question Answer Notes LastModified by Organizat ion Details LastModified Time Tobacco Smoking Status Never Smoker Madaycarlos Barajas [facility] 05/18/2023 13:26:34 What Is Your Level Of Alcohol Consumption? None [email or web address] Information not available 05/18/2023 Sex: Unknown Functional Status None recorded. Mental Status None recorded. Family History Nothing Reported. 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 Condition Response Squamous Cell Carcinoma N Basal Cell Carcinoma N Melanoma N Past Encounters Encounter ID Performer Location Encounter Start Date Encounter Closed Date Diagnosis/Indication Diagnosis SNOMED-CT Code Diagnosis ICD10 Code Diagnosis Note [id number] JOSE SHARIF PA-C [address] [address] 05/18/2023 13:10:07 05/18/2023 15:13:55 Multiple benign melanocytic nevi 669894880 D22.5 D18.01 L82.1 L81.4 The benign nature of keratoses and lentigines was discussed with the patient.[place] n protection with SPF 30 broadspect rum sunscreen and protective gear discussed. Look for physical breezy sunscreens with at least SPF 30 containing zinc oxide or titanium dioxide as active ingredient .Recommend monthly self examinatio ns and yearly full skin examinatio n with a dermatolog y provider.P atient instructed to call if any suspicious lesions are noted. Inflamed s eborrheic keratosis 367806031 L82.0 Benign.Ris ks of blistering , discolorat ion and scarring discussed. Will tx with LN2 since bothersome . External hordeolum 95939 08 H00.011 The etiology of lesion(s) discussed. Will continue to monitor for any changes should resolve with time.Rec baby shampoo and warm compressCa n refer to oculoplast ics if needed. Health Concerns Section Related Observation LastModified by Organization Detai ls LastModified Time None Recorded Concern Status LastModified by Organization Details LastModified Time None Recorded Advance Directives Directive None Recorded Payers Encounter Date Sequence Insurance Name Policy Number Policy Carney Covered Member ID Carney Member ID Guarantor Name 05/18/2023 1 [employer] - DOS PRIOR TO 2024 (PPO) Elvin Paige [id number] Elvin Paige Notes Date Note Type Note Provider Name and Address Organization Details Recorded Time 05/18/2023 text/html Here for a full body skin examination - first skin check: {{}}- no history of skin cancer- spots of concern today: {{ Back, L lower lid #}} JOSE SHARIF PA-C [address], [place], [address], [facility] 05/18/2023 15:04:52
== END 2024-05-20 23:59 | disposition home or self-care (01) ==
PROVIDERS: PCP Internal Medicine Adolescent Medicine; Visit Provider Surgery
DX: Z01.810 Encounter for preprocedural cardiovascular examination (principal); K29.70 Gastritis, unspecified, without bleeding
CPT/HCPCS: 80053; 85025; 93005

== ENCOUNTER 2024-06-02 06:40 | Inpatient (IN) | payer MEDICARE, SELFPAY ==
[2024-05-20 12:54] VITALS: BMI 30.1
[2024-06-02] VITALS (22 sets, daily range): BP systolic 110–149; BP diastolic 27–86; PULSE 75–97; RESP 14–20; TEMP 36.1–38; O2SAT 90–98; BMI 27.3
--- NOTE | 2024-06-02 06:59 | P.HP_ITS ---
HPI HPI HPI: Forwarded from office visit dated April 27, 2024: This is a 69-year-old gentleman seen in consultation from Dr. 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 Colonoscopy procedure report reviewed. Impression/plan forwarded below: Impression: 1. 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 Colonic polyps x 3 3. Left-sided diverticulosis 4. 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 We will plan to do a CAT scan of the abdomen to more accurately diagnose whether this could be a mucocele because these have a risk of malignancy or perforation within the abdominal cavity resulting in a condition called pseudomyxoma peritonitei. I will obtain CAT scan today and then referral to surgery. I will follow-up the polyp histology and recommend repeat surveillance colonoscopy again in 3 years. I would encourage psyllium bulking fiber supplementation on a maintenance basis. CEA dated April 21, 2024 normal at 1.4 ng/mL Follow-up CT scan reviewed. Impression forwarded below: IMPRESSION: Soft tissue thickening of the appendiceal base, with wall thickening and enlargement which correlate with the patient's clinical history of appendiceal carcinoma as described above. No evidence of metastatic disease in the abdomen or pelvis isidentified. ======= EKG dated February 25, 2023 reviewed. Essentially normal. PFSH PFSH Disclaimer: The information contained in this section may have been updated after the patient was seen, as this information can be updated by other users. 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 (Updated 06/02/24 @ 07:02 by Ronald Delcdi MD) Mass of left upper extremity Hx of cataract Diabetes mellitus Dysphagia Anxiety and depression History of COVID-19 History of gastroesophageal reflux (GERD) Allergies Cataract Hyperlipidemia Hypertension Surgical History History of sinus surgery History of knee surgery History of esophagogastroduodenoscopy (EGD) History of local excision of skin lesion History of colonoscopy Family History Other Family history of hypertension Family history of myocardial infarction Lung cancer Social History (Updated 06/02/24 @ 06:46 by Niecy Pierre RN) Smoking Status: Never smoker alcohol intake: never substance use type: denies use current occupational status: retired Travel in the last 8 weeks: None household members: spouse housing: house 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 occupational exposures/hazards: No caffeine: Yes Have you lived/traveled outside US in past 30 days?: No Contact w/someone who lives/traveled outside US past 30 days?: No Exposure to someone with infectious disease in past 14 days?: No Do you have a fever (greater than 100.4 F or 38 C)?: No Have you tested positive for COVID-19: No Exposed to someone with COVID-19 in past 14 days?: No Do you have a sore throat?: No Do you have a cough?: No Do you have any weakness?: No Are you experiencing any nausea/vomitting?: No Do you have any diarrhea?: No Are you experiencing any unusual bleeding?: No Do you have any muscle aches/pain?: No Do you have any abdominal pain?: No Are you experiencing loss of taste or smell?: No Other 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 Have you received the Flu Vaccine for this season: Yes Have you received the Pneumonia Vaccine: Yes Review of Systems Review of Systems Review of systems:: pertinent systems reviewed and negative unless documented below Meds Home Medications and Allergies Home Medications ?Medication ?Instructions ?Recorded ?Confirmed ?Type trazodone 50 mg tablet 50 mg PO DAILY bp 06/23/18 06/02/24 History losartan 100 mg tablet 100 mg PO DAILY 30 days #30 tabs 11/18/19 06/02/24 Rx bupropion HCl 150 mg 24 hr tablet, 450 mg PO DAILY Depression 02/25/23 06/02/24 History extended release (Wellbutrin XL) atorvastatin 20 mg tablet 20 mg PO HS 03/02/23 06/02/24 History dapagliflozin propanediol 10 mg 10 mg PO DAILY 08/03/23 06/02/24 History tablet (Farxiga) pantoprazole 20 mg tablet,delayed 20 mg PO DAILY #30 tabs 08/03/23 06/02/24 Rx release polyethylene glycol 3350 17 17 g PO DAILY constipation #510 08/03/23 06/02/24 Rx gram/dose oral powder (Miralax) grams sodium,potassium,mag sulfates 17.5 See Rx Instructions PO .COMPLEX 04/13/24 06/02/24 Rx gram-3.13 gram-1.6 gram oral soln #354 mL (Suprep Bowel Prep Kit) peg 3350-electrolytes 236 240 ml PO Q10M #4,000 mL 04/27/24 06/02/24 Rx gram-22.74 gram-6.74 gram-5.86 gram solution (Golytely) [id number] 140 gram-sod sulfate 9 See Rx Instructions PO .COMPLEX #3 04/27/24 06/02/24 Rx gram-NaCl 5.2gram-KCl-C oral pwdr ea packs (Plenvu) New Prescriptions to Start Prescriptions: Allergies Allergy/AdvReac Type Severity Reaction Status Date / Time amoxicillin (From Augmentin) Allergy Mild Rash Verified 06/02/24 06:40 clavulanic acid (From Allergy Mild Rash Verified 06/02/24 06:40 Augmentin) Penicillins Allergy hives Verified 06/02/24 06:40 Sulfa (Sulfonamide Allergy Hives Verified 06/02/24 06:40 Antibiotics) Tetracyclines AdvReac Mild CARDENAS Verified 06/02/24 06:40 Exam Constitutional Constitutional: no acute distress *Routine HEENT Exam Head: Present normocephalic Eye: Present EOMI ENT: Present mucous membranes moist *Routine Neck Exam Neck: Present full ROM *Routine Respiratory Exam Respiratory: Absent respiratory distress *Routine Cardiovascular Exam Cardiovascular: Absent tachycardia *Routine Abdominal Exam Abdominal: Present soft *Routine Rectal Exam Rectal:: deferred *Routine Genitalia Exam Genitalia:: deferred *Routine Extremities Exam Extremities: Present full ROM *Routine Skin Exam Skin: Absent erythema *Routine Neurological Exam Neurological: Present alert Assessment and Plan *Assessment and plan (1) Appendiceal tumor: Status: Acute Category: Medical Code(s): D37.3 - Neoplasm of uncertain behavior of appendix (2) Hypertension: Status: Acute Qualifiers: Hypertension type: unspecified Qualified Code(s): I10 - Essential (primary) hypertension Category: Medical Code(s): I10 - Essential (primary) hypertension (3) GERD (gastroesophageal reflux disease): Status: Acute Qualifiers: Esophagitis presence: esophagitis presence not specified Qualified Code(s): K21.9 - Gastro-esophageal reflux disease without esophagitis Category: Medical Code(s): K21.9 - Gastro-esophageal reflux disease without esophagitis Plan Right hemicolectomy scheduled for today
--- NOTE | 2024-06-02 07:00 | EXP.ANES.CKL ---
[facility] Disclaimer: The information contained in this section may have been updated after the patient was seen, as this information can be updated by other users. 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 Hx of cataract Diabetes mellitus Dysphagia Anxiety and depression History of COVID-19 History of gastroesophageal reflux (GERD) Allergies Cataract Hyperlipidemia Hypertension Surgical History History of sinus surgery History of knee surgery History of esophagogastroduodenoscopy (EGD) History of local excision of skin lesion History of colonoscopy Family History Other Family history of hypertension Family history of myocardial infarction Lung cancer Social History (Updated 06/02/24 @ 06:46 by Niecy Pierre RN) Smoking Status: Never smoker alcohol intake: never substance use type: denies use current occupational status: retired Travel in the last 8 weeks: None household members: spouse housing: house 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 occupational exposures/hazards: No caffeine: Yes Have you lived/traveled outside US in past 30 days?: No Contact w/someone who lives/traveled outside US past 30 days?: No Exposure to someone with infectious disease in past 14 days?: No Do you have a fever (greater than 100.4 F or 38 C)?: No Have you tested positive for COVID-19: No Exposed to someone with COVID-19 in past 14 days?: No Do you have a sore throat?: No Do you have a cough?: No Do you have any weakness?: No Are you experiencing any nausea/vomitting?: No Do you have any diarrhea?: No Are you experiencing any unusual bleeding?: No Do you have any muscle aches/pain?: No Do you have any abdominal pain?: No Are you experiencing loss of taste or smell?: No [facility] Anesthesia Checklist Patient Identification Patient Identification: Arm Band and Verbal (Name & ) Structural Data Admitted From: Home Planned Operative Procedure/s: saman coloectomy Consent for Planned Operative Procedure(s) Verified: Yes Verified Documents: Surgical Consent and History and Physical NPO Status Verified Time NPO: 00:00 Additional verifications Anesthesia Reactions: No Hx Blood Transfusions: No Blood Transfusion Reaction: No Airway Assessment Mallampati Score:: Class II Dentition: Good Dentition Neurological Assessment Level of Consciousness: Awake, Alert and Appropriate Hx Seizures: No Anesthesia Plan Anesthesia Risk discussed: Yes Anesthesia Plan: Verified ASA Class: III Anesthesia Type: General
[2024-06-02] MEDS: 0.9 % SODIUM CHLORIDE 1000ML 1,000 ML 25 ML IV (07:10)
[2024-06-02] MEDS: CLINDAMYCIN PHOSPHATE/D5W 900 MG/50 ML PIGGYBACK 50 MG (07:25)
[2024-06-02] MEDS: METRONIDAZ/SOD CHL 500 MG/100 ML PIGGYBACK 100 MG IV ×3 (07:40→22:45)
--- NOTE | 2024-06-02 07:49 | HMH.PHAINT1 ---
Pharmacy Intervention Comments: MEDICATION RECONCILIATION COMPLETED ON PATIENT USING EXTERNAL FILL HISTORY FROM PHARMACY. -SAURABH RAZO, CHARLOTTED
--- OUTSIDE RECORDS SUMMARY | 2024-06-02 10:04 | XMS_ITS | Data Portability ---
Author Organization [facility] KATIANA Gonzalez [facility] Address [address] [place] [address] Care Team Providers Care Architectural Design Professor Name Role Phone ELAFREDERICK PRIYA Primary Care Provider [phone] Assessment No assessment recorded. Plan of Treatment [...] - Destruction BN Lesions completed Cathi Ashby [facility] 05/18/2023 13:45:42 Imaging Results None recorded. Procedure Notes None recorded. Medical Equipment None Reported. Allergies Allergen ID Allergen Name Allergen Category Reaction Reaction Severity Criticality Documentation Date Start Date Code Code System Note Provider Name and Address Organization Details Recorded Time 462447 Product containin g penicilli n (product) medicatio n Not available Not available Not available 05/18/2023 16405 8001 SNOMED Maday [facility] 13:25:07 257267 Substance with sulfonami de structure and antibacte rial mechanism of action (substanc e) medicatio n Not available Not available Not available 05/18/2023 56535 8003 SNOMED Maday [facility] 13:25:11 393032 Medicinal product containin g tetracycl ine structure and acting as antibacte rial agent (product) medicatio n Not available Not available Not available 05/18/2023 40688 1004 SNOMED Maday Larrykinson [facility] 13:25:20 980570 Augmentin medicatio n Not available Not available Not available 05/18/2023 10015 2 RxNorm Madayanjelica LarryBarajas [facility] 13:25:26 Medications Name Sig Start Date Stop [...] Tobacco Smoking Status Never Smoker Madaycarlos Barajas [facility] 05/18/2023 13:26:34 What Is Your Level Of [...] SNOMED-CT Code Diagnosis ICD10 Code Diagnosis Note [id number] JOSE SHARIF PA-C [address] [address] 05/18/2023 13:10:07 05/18/2023 15:13:55 Multiple benign melanocytic nevi [id number] D22.5 D18.01 L82.1 L81.4 The benign nature [...] lesions are noted. Inflamed s eborrheic keratosis [id number] L82.0 Benign.Ris ks of blistering , discolorat ion and scarring discussed. Will tx with LN2 since bothersome . External hordeolum 10306 08 H00.011 The etiology of lesion(s) discussed. [...] DOS PRIOR TO 2024 (PPO) Elvin Paige [id number] Elvin Paige Notes Date Note Type Note Provider Name and Address Organization Details Recorded Time 05/18/2023 text/html Here for a full body skin examination - first skin check: {{}}- no history of skin cancer- spots of concern today: {{ Back, L lower lid #}} JOSE SHARIF PA-C [address], [place], [address], [facility] 05/18/2023 15:04:52
--- OUTSIDE RECORDS SUMMARY | 2024-06-02 10:04 | XMS_ITS | Continuity of Care Document ---
Author Organization [facility] & [place], [facility] Sarah Address [address] [place] [address] Care Team Providers Care Manager Surgery Name Role Phone PRIYA CONCEPCION Primary Care [...] Organization Details Recorded Time Sensorineural hearing loss [id number] Active 2022 JULIET CRAWLEY, AUD [address] [facility], [place], [address] , [facility] & [place] 3 09:10:16 Problem Notes None recorded. Medical [...] SNOMED-CT Code Diagnosis ICD10 Code Diagnosis Note [id number] BRADY ASKEW [facility] [place] [address] [facility] [address] [place] [address] 05/03/2024 15:18:33 05/03/2024 15:31:30 Sensorineural hearing loss 22505669 H90.3 Health Concerns Section Related Observation LastModified by Organization Shruthi headley LastModified Time None Recorded Concern Status LastModified by Organization Details LastModified Time None Recorded Payers Encounter Date Sequence Insurance Name Policy Number Policy Carney Covered Member ID Carney Member ID Guarantor Name 05/03/2024 1 [facility] (MEDICARE REPLACEMENT/A DVANTAGE - PPO) [id number] Elvin Paige [id number] Elvin Paige Notes Date Note Type Note Provider Name and Address Organization Details Recorded Time 05/03/2024 text/html Patient was seen today for a hearing aid service. Cleaned and adjusted hearing aids this date. JULIET CRAWLEY, AUD [address] , [place], [address], [facility] - [facility] - [place] & [place] 05/03/2024 15:54:13
--- OUTSIDE RECORDS SUMMARY | 2024-06-02 10:04 | XMS_ITS | Data Portability ---
Author Organization [facility] & [facility] Address [address] [place] [address] Care Team Providers Care Senior Research Executive Name Role Phone PRIYA CONCEPCION Primary Care [...] By Organization Details Last Modified Time 02/25/2022 [id number] 1-Discussed findings with Mr. Paige. 2-Rec new hearing aids; he will pursue through his health insurance. 3-F/u hearing testing annually to monitor. mandy Not available 02/25/2022 10:55:32 03/20/2022 [id number] 1-Mr. Paige was fit with Unitron Moxi B3-R PREETI hearing aids. 2-F/u prn. Not available 03/20/2022 09:10:51 Reason for Referral [...] Organization Details Recorded Time Sensorineural hearing loss 32928074 Active 2022 JULIET CRAWLEY, AUD [address] [facility], [place], [address] , [facility] & [place] 02/02/202 3 09:10:16 Problem Notes None recorded. [...] SNOMED-CT Code Diagnosis ICD10 Code Diagnosis Note [id number] BRADY ASKEW [facility] [place] [address] [facility] [place] [id number] 02/25/2022 09:57:44 02/25/2022 10:24:52 Sensorineural hearing loss [id number] H90.3 [id number] BRADY ASKEW [facility] [place] [address] [place] [phone] 03/20/2022 08:15:03 03/20/2022 08:59:26 Sensorineural hearing loss 52931433 H90.3 [id number] BRADY ASKEW [facility] [address] [place] [address] 05/03/2024 15:18:33 05/03/2024 15:31:30 Sensorineural hearing loss [id number] H90.3 Health Concerns Section Related Observation LastModified by Organization Detai ls LastModified Time None Recorded Concern Status LastModified by Organization Details LastModified Time None Recorded Advance Directives Directive None Recorded Payers Encounter Date Sequence Insurance Name Policy Number Policy Carney Covered Member ID Carney Member ID Guarantor Name 02/25/2022 1 [facility] - DOS PRIOR TO 2024 (PPO) Elvin Paige [id number] Elvin Paige 03/20/2022 1 [facility] - DOS PRIOR TO 2024 (PPO) Elvin Paige [id number] Elvin Paige 05/03/2024 1 [facility] (MEDICARE REPLACEMENT/A DVANTAGE - PPO) [id number] Elvin Paige [id number] Elvin Paige Notes Date Note Type Note [...] unremarkable bilaterally. BRADY ASKEW [address], [place], [address], [facility] & [place] 02/25/2022 10:55:41 03/20/2022 text/html Mr. Paige was seen today for a hearing aid fitting. BRADY ASKEW [address], [place], [address], [facility] & [place] 03/20/2022 09:11:05 05/03/2024 text/html Patient was seen today for a hearing aid service. Cleaned and adjusted hearing aids this date. BRADY ASKEW [address], [place], [address], [facility] & [place] 05/03/2024 15:54:13
--- NOTE | 2024-06-02 10:11 | EXP.COCOPNOT ---
Date of procedure: 06/02/24 Pre-op Diagnosis:: Mucinous neoplasm of the appendix Post-op Diagnosis:: Same Procedure performed:: Right hemicolectomy Surgeon:: Ronald Delcid MD Turret Punch Operator(s):: Dr. Frazier Anesthesia: NIMESH Estimated blood loss (mL): 300 Operative findings:: Somewhat thickened appendix without evidence of rupture Operative note:: After informed consent was obtained the patient was taken to the operating room and placed in the supine position. General anesthesia was induced and his abdomen was prepped and draped in a sterile fashion. A midline laparotomy incision was made. A combination of sharp dissection, blunt dissection, and electrocautery was utilized to enter the abdomen. The Bookwalter retractor was placed in position. The right colon was carefully elevated. The omentum was fairly large in terms of overall size and also somewhat adhered to the right upper quadrant. The hepatic flexure was also notably posterior . A combination of blunt dissection and electrocautery was utilized to transect along the lateral sidewall as medial retraction was completed. As the hepatic flexure was encountered a portion of thickened omentum was transected with the Enseal device. A transection site along the proximal transverse colon was elevated. A linear stapling device was utilized to transect the colon at that site. In a similar manner the terminal ileum was elevated and a proximal transection site was chosen. The linear stapling device was utilized to transect the distal ileum. The specimen was carefully elevated as the intervening mesentery was taken down via the Enseal device. Controlled of the ileocolic vessels was managed with Vicryl suture/stick ties. Once the specimen was freed it was passed off for pathologic evaluation. No additional evidence of bleeding or sign of injury was noted. The transverse colon and distal ileum was carefully elevated. The linear stapler was utilized to create a common otomy which was then closed using a TX stapling device. Imbrication with Nurolon was then completed along the staple margin and crotch . The mesenteric defect was reapproximated with running Vicryl suture. The abdomen was thoroughly irrigated. No active bleeding or sign of injury was noted. The peritoneum was reapproximated with running Vicryl suture and fascia was closed with 2-0 Novafil. Skin was stapled and dressings were applied. The patient was transferred to recovery in stable condition after extubation. Condition: stable Disposition: PACU Specimens:: Right colon Complications:: No immediate Colon Resection Operation performed with curative intent: Yes Tumor location: Colon, NOS (Mucinous neoplasm of the appendix) Extent of colon and vascular resection: Right hemicolectomy
--- NOTE | 2024-06-02 11:17 | EXP.ANES.I ---
[facility] Anesthesia Record Part I Anesthesia Record I Intake, IV Amount: 2,500 Hydration: Adequate Estimated blood loss (mL): 300 Urine output (mL): 200 Blood Products used (#): none Blood Pressure: 110/65 SaO2: 98 Pulse Rate: 80 Airway Patency: Patent Respiratory Rate: 14 Temperature: 97.0 F Patient is:: Drowsy, Nasal O2 and Stable
[2024-06-02] MEDS: 0.9 % SODIUM CHLORIDE 1000ML 1,000 ML 125 ML IV ×2 (12:52→22:08)
[2024-06-02 13:30] LABS: Microscopic,Cath URINE MICROSCOPIC (MICROSCOPIC)
[2024-06-02 13:39] LABS: Appearance,Urine/Cath CLEAR (Clear); Bilirubin,Cath Negative (Negative); Blood, Urine/Cath Negative (Negative); Color,Urine/Cath YELLOW (Yellow); Glucose,Urine/Cath (UA) 3+ (Negative); Ketones,Urine/Cath 1+ (Negative); Leukocyte Esterase,Cath Negative (Negative); Nitrate,Cath Negative (Negative); Protein,Urine/Cath Negative (Negative); Specific Gravity, Urine/Cath >= 1.030 (1.005-1.030); Urobilinogen,Cath 0.2 EU/dl (0.2)
[2024-06-02] MEDS: CLINDAMYCIN PHOSPHATE/D5W 900 MG/50 ML PIGGYBACK 100 MG IV ×2 (15:00→22:08)
[2024-06-02] MEDS: MORPHINE 10MG/ML 30ML PCA IV (15:25)
--- NOTE | 2024-06-02 17:52 | PC.NURSE ---
Pt admitted to floor for observation today after undergoing right hemicolectomy. Pt has midline incision with dressing that is C/D/I. Pt VSS after procedure, did have to place him on 1L while asleep because of periods of apnea. johnson cath in place with great output. Pt did start to c/o pain after sedation was wearing off and HOME HEALTH CARE PHYSICIAN pump was started per APR. Pt educated on use of pump. Pt has self administered 5mg this shift. Pt resting comfortably in bed with family at bedside. Call light in reach.
[2024-06-02] MEDS: PANTOPRAZOLE 40MG VIAL 40 MG IV (20:57)
[2024-06-02] MEDS: TRAZODONE 50MG TABLET 50 MG PO (20:57)
[2024-06-02] MEDS: ATORVASTATIN 20MG TABLET 20 MG PO (20:57)
[2024-06-03] VITALS (14 sets, daily range): BP systolic 112–168; BP diastolic 52–82; PULSE 66–101; RESP 16–20; TEMP 36.2–36.9; O2SAT 90–96; BMI 29.0
--- NOTE | 2024-06-03 04:45 | PC.NURSE ---
Pt A&OX4. He has remained on 2l nasal cannula while sleeping. Midline dressing has remained c/d/i. STAIR BUILDER pump has remained in place with 20mg used so far this shift. Calvillo catheter has remained in place and is draining well. He has received IV abx. Family has remained at bedside throughout the night. No complaints at this time, call light within reach.
[2024-06-03] MEDS: CLINDAMYCIN PHOSPHATE/D5W 900 MG/50 ML PIGGYBACK 100 MG IV (06:21)
[2024-06-03] MEDS: 0.9 % SODIUM CHLORIDE 1000ML 1,000 ML 125 ML IV ×3 (06:21→22:50)
[2024-06-03 06:41] LABS: Basophils % 0.1 % (0.1-2.0); Hematocrit 38.2 % (42.0-52.0); Hemoglobin 12.6 g/dL (14.1-18.0); Lymphocytes # 0.6 K/mm3 (0.7-4.5); Lymphocytes % 3.9 % (10-50); Mean Corpuscular Hemoglobin 31.8 pg (27.0-31.2); Mean Corpuscular Volume 96.5 fl (80-94); Mean Platelet Volume 9.9 fl (7.4-10.4); Monocytes % 13.6 % (1.7-9.3); Neutrophils # 11.9 K/mm3 (1.8-7.8); Neutrophils % 81.9 % (37.0-80.0); Nucleated Red Blood Cells # 0 10^3/uL; Nucleated Red Blood Cells % 0 %; Platelet Count 278 K/mm3 (142-424); Red Blood Count 3.96 M/mm3 (4.60-6.20); Red Cell Distribution Width 12.4 % (11.5-17.5); Red Cell Distribution Width-SD 44.6 fL; White Blood Count 14.5 K/mm3 (4.8-10.8)
[2024-06-03 06:49] LABS: Chloride 106 mmol/L (98-107); Potassium 4.5 mmoL/L (3.5-5.1); Sodium 136 mmol/L (136-145)
[2024-06-03 06:52] LABS: Anion Gap 15.5 mEq/L (5-15); Blood Urea Nitrogen 29 mg/dl (9-20); Carbon Dioxide 19 mmol/L (22.0-30.0); Creatinine Clearance Estimated 64 mL/min (50-200); Estimated Glomerular Filt Rate 47 ml/min (>60); GFR (African American) 56 ML/MIN (>60)
[2024-06-03 06:53] LABS: Calcium 7.4 mg/dl (8.4-10.2); Glucose 177 mg/dl (74-100)
[2024-06-03] MEDS: METRONIDAZ/SOD CHL 500 MG/100 ML PIGGYBACK 100 MG IV (06:54)
--- NOTE | 2024-06-03 07:17 | EXP.SURG.PN ---
Subjective Narrative: He feel(s) pretty decent . He reports a small amount of liquid stool. Exam Data for Last 24 hours Vital signs and Labs for Last 24 Hours: Temp Pulse Resp BP Pulse Ox O2 Del Method O2 Flow Rate 97.6 F 101 H 18 147/82 H 93 L Room Air 1.5 06/03/24 05:57 06/03/24 05:57 06/03/24 05:57 06/03/24 05:57 06/03/24 05:57 06/03/24 06:46 06/03/24 05:57 Laboratory Results - last 24 hr 06/02/24 07:00: Blood Type A Positive, Antibody Screen Negative 06/02/24 07:36: Urine Color Yellow, Urine Appearance Clear, Urine pH 6.0, Ur Specific [place] >= 1.030, Urine Protein Negative, Urine Glucose (UA) 3+, Urine Ketones 1+, Urine Blood Negative, Urine Nitrate Negative, Urine Bilirubin Negative, Urine Urobilinogen 0.2, Ur Leukocyte Esterase Negative, Urine RBC None, Urine WBC 3-5, Ur Squamous Epith Cells None, Urine Bacteria None 06/03/24 06:25: WBC 14.5 H, RBC 3.96 L, Hgb 12.6 L, Hct 38.2 L, MCV 96.5 H, MCH 31.8 H, MCHC 33.0, RDW 12.4, Plt Count 278, MPV 9.9, Neut % (Auto) 81.9 H, Lymph % (Auto) 3.9 L, Mineral % (Auto) 13.6 H, Eos % (Auto) 0.0 L, Baso % (Auto) 0.1, Neut # (Auto) 11.9 H, Lymph # (Auto) 0.6 L, Mineral # (Auto) 2.0 H, Eos # (Auto) 0.0, Baso # (Auto) 0.0, Sodium 136, Potassium 4.5, Chloride 106, Carbon Dioxide 19 L, Anion Gap 15.5 H, BUN 29 H, Creatinine 1.50 H, Estimated Creat Clear 64, Estimated GFR 47 L, Est GFR ( Amer) 56 L, Glucose 177 H, Calcium 7.4 L I & O for Last 24 hours: Intake & Output 05/31/24 06/01/24 06/02/24 06/03/24 11:59 11:59 11:59 11:59 Intake Total 2500 / 2500 650 / 650 Output Total 900 / 900 Balance 2500 / 2500 -250 / -250 Weight 196 lb 9 oz 207 lb 8 oz Constitutional Constitutional: no acute distress *Routine Respiratory Exam Respiratory: Absent respiratory distress *Routine Abdominal Exam Comments: Dressing in place. No spreading cellulitis. Progress Note: A&P Assessment and plan (1) Appendiceal tumor: Status: Acute Assessment and plan: Overall, doing fairly well postoperative day 1 status post right hemicolectomy Ambulate Remove Calvillo Nurse-directed clear liquids (no carbonation) (2) Hypertension: Status: Acute Assessment and plan: home meds (3) GERD (gastroesophageal reflux disease): Status: Acute Assessment and plan: ppi
--- NOTE | 2024-06-03 07:19 | P.PNANES_ITS ---
[facility] Anesthesia Record Part II Anesthesia Record Part II Discharge Time: 10:47 Destination: Medical Surgical Department PACU nurse assessment reviewed?: Yes Patient Condition:: Good Anesthesia Complications:: None Swallowing reflex intact?: Yes Airway Patency: Patent Cyanosis?: No Blood Pressure: 136/74 SaO2: 96 Respiratory Rate: 16 Pulse Rate: 77 Temperature: 97.2 F Mental Status: Alert & Oriented Pain level:: 0 Nausea and/or vomitting:: None Intake, IV Amount: 0 Hydration: Adequate
[2024-06-03] MEDS: buPROPion HCl SR 150MG TAB 450 MG PO (08:01)
[2024-06-03] MEDS: IRBESARTAN 150MG TAB 150 MG PO (08:01)
[2024-06-03] MEDS: DAPAGLIFLOZIN PROPANEDIOL 10 MG TABLET PO (08:46)
[2024-06-03] MEDS: LACTATED RINGERS 1000ML 1,000 ML 999 ML IV (12:13)
[2024-06-03] MEDS: MORPHINE 10MG/ML 30ML PCA IV (13:38)
[2024-06-03 14:52] LABS: POC Glucose,Bedside 124 (70-110)
--- NOTE | 2024-06-03 18:01 | PC.NURSE ---
AOX4, TOLERATING ROOM AIR WHILE AWAKE. 8.2 MG CLEARED FROM COOKER CASING PUMP. TOLERATING SIPS AND CHIPS. AMBULATED IN HALLWAY AND TOLERATED WELL.
[2024-06-03] MEDS: ATORVASTATIN 20MG TABLET 20 MG PO (20:55)
[2024-06-03] MEDS: SODIUM CHLORIDE 0.9% 10ML VIAL 10 ML IV (20:55)
[2024-06-03] MEDS: PANTOPRAZOLE 40MG VIAL 40 MG IV (20:55)
[2024-06-03] MEDS: TRAZODONE 50MG TABLET 50 MG PO (20:55)
[2024-06-04] VITALS (10 sets, daily range): BP systolic 120–167; BP diastolic 62–69; PULSE 68–81; RESP 14–20; TEMP 36.4–36.8; O2SAT 92–97; BMI 28.9
--- NOTE | 2024-06-04 03:58 | PC.NURSE ---
Patient is pleasantly alert and oriented x4. has remained at the bedside this shift. He was observed to have eyes closed, respirations even and unlabored on room air, and no apparent distress throughout the majority of the night. He has not had any complaints of significant abdominal pain this shift; however, he does complaint of tenderness during movement and turning in bed. Midline incision (dressing in place) was assessed; dressing has remained clean, dry, and intact. He has been ambulating in his room/to the bathroom with standby assistance + use of a walker. Autonomy and dignity encouraged. Patient has complained of feeling dizzy and lightheaded at times. METAL CHECKER pump remains infusing accordingly, morphine administered. Scheduled medications administered as appropriately per MAR. Normal saline continues to infuse at 125 mL/hr. Patient stated that he has been belching and passing gas; no bowel movement during this shift, however. He has been tolerating sips of ice water and ice chips without increasing abdominal pain, increasing distention, nor nausea/vomiting. Abdomen was soft, nontender, and puffy upon palpation. Incentive spirometer + SCDs usage. Auscultation of heart, lungs, and bowels were within normal findings. Vital signs stable. At this time, the patient is resting in bed without any further complaints. No new needs at this time. Call light within reach.
--- NOTE | 2024-06-04 05:58 | PC.NURSE ---
9 mg of morphine was cleared from the SHIFT COORDINATOR pump for this shift.
[2024-06-04] MEDS: 0.9 % SODIUM CHLORIDE 1000ML 1,000 ML 125 ML IV ×2 (06:50→18:45)
[2024-06-04 07:43] LABS: Mean Platelet Volume 10.1 fl (7.4-10.4); Nucleated Red Blood Cells # 0 10^3/uL; Nucleated Red Blood Cells % 0 %
[2024-06-04 07:47] LABS: Chloride 110 mmol/L (98-107); Potassium 4.2 mmoL/L (3.5-5.1); Sodium 136 mmol/L (136-145)
[2024-06-04 07:48] LABS: Basophils % 0.2 % (0.1-2.0); Hematocrit 31.3 % (42.0-52.0); Lymphocytes # 0.9 K/mm3 (0.7-4.5); Lymphocytes % 6.3 % (10-50); Mean Corpuscular HGB Conc 32.9 g/dL (31.8-35.4); Mean Corpuscular Hemoglobin 32.2 pg (27.0-31.2); Mean Corpuscular Volume 97.8 fl (80-94); Monocytes % 14.4 % (1.7-9.3); Neutrophils # 11.1 K/mm3 (1.8-7.8); Neutrophils % 78.3 % (37.0-80.0); Platelet Count 205 K/mm3 (142-424); Red Cell Distribution Width-SD 46.1 fL; White Blood Count 14.2 K/mm3 (4.8-10.8)
[2024-06-04 07:50] LABS: Blood Urea Nitrogen 23 mg/dl (9-20); Creatinine Clearance Estimated 95 mL/min (50-200); Estimated Glomerular Filt Rate 75 ml/min (>60); GFR (African American) 90 ML/MIN (>60); MANUAL DIFFERENTIAL MANUAL DIFFERENTIAL (MANUAL DIFF)
[2024-06-04 07:51] LABS: Anion Gap 8.2 mEq/L (5-15); Calcium 7.4 mg/dl (8.4-10.2); Carbon Dioxide 22 mmol/L (22.0-30.0); Glucose 86 mg/dl (74-100)
[2024-06-04 08:09] LABS: Lymphocytes % 6 % (10-50); Monocytes % 9 % (2-9); Neutrophils % 85 % (42-76); Platelet Estimate Normal; RBC Morphology Normal; Total Cells Counted 100
[2024-06-04 08:21] LABS: Hemoglobin 10.3 g/dL (14.1-18.0)
[2024-06-04] MEDS: buPROPion HCl SR 150MG TAB 450 MG PO (08:21)
[2024-06-04] MEDS: DAPAGLIFLOZIN PROPANEDIOL 10 MG TABLET PO (08:21)
[2024-06-04] MEDS: IRBESARTAN 150MG TAB 150 MG PO (08:21)
--- NOTE | 2024-06-04 10:14 | EXP.SURG.PN ---
Subjective Patient reports: no new complaints and flatus Exam Data for Last 24 hours Vital signs and Labs for Last 24 Hours: Temp Pulse Resp BP Pulse Ox O2 Del Method O2 Flow Rate 98 F 68 17 143/68 H 96 Room Air 1.5 06/04/24 07:57 06/04/24 07:57 06/04/24 07:57 06/04/24 07:57 06/04/24 07:57 06/04/24 07:57 06/03/24 08:00 Laboratory Results - last 24 hr 06/02/24 06:53: POC Glucose 124 H 06/04/24 06:05: WBC 14.2 H, RBC 3.20 L, Hgb 10.3 L D, Hct 31.3 L, MCV 97.8 H, MCH 32.2 H, MCHC 32.9, RDW 13.0, Plt Count 205, MPV 10.1, Neut % (Auto) 78.3, Lymph % (Auto) 6.3 L, [place] % (Auto) 14.4 H, Eos % (Auto) 0.0 L, Baso % (Auto) 0.2, Neut # (Auto) 11.1 H, Lymph # (Auto) 0.9, [place] # (Auto) 2.0 H, Eos # (Auto) 0.0, Baso # (Auto) 0.0, Total Counted 100, Neutrophils % (Manual) 85 H, Lymphocytes % (Manual) 6 L, Monocytes % (Manual) 9, Platelet Estimate Normal, RBC Morphology Normal, Sodium 136, Potassium 4.2, Chloride 110 H, Carbon Dioxide 22, Anion Gap 8.2, BUN 23 H, Creatinine 1.00 D, Estimated Creat Clear 95, Estimated GFR 75, Est GFR ( Amer) 90 D, Glucose 86 D, Calcium 7.4 L I & O for Last 24 hours: Intake & Output 06/01/24 06/02/24 06/03/24 06/04/24 11:59 11:59 11:59 11:59 Intake Total 2500 / 2500 650 / 650 3728 / 3728 Output Total 900 / 900 1080 / 1080 Balance 2500 / 2500 -250 / -250 2648 / 2648 Weight 196 lb 9 oz 207 lb 8 oz 206 lb 7.985 oz Constitutional Constitutional: no acute distress *Routine Respiratory Exam Respiratory: Absent respiratory distress *Routine Cardiovascular Exam Cardiovascular: Absent tachycardia *Routine Abdominal Exam Abdominal: Present soft Comments: Incision clean, dry, and intact. No erythema. Progress Note: A&P Assessment and plan (1) Appendiceal tumor: Status: Acute Assessment and plan: Overall, doing fairly well postoperative day 2 status post right hemicolectomy Continue to increase ambulation Clear liquid diet (await improved bowel function) Continue SCDs Lovenox ordered Continue incentive spirometry Repeat labs in a.m. Possible Hep-Lock and DC ELECTRICAL ASSEMBLY SUPERVISOR if he tolerates clear liquids (2) Hypertension: Status: Acute Assessment and plan: home meds (3) GERD (gastroesophageal reflux disease): Status: Acute Assessment and plan: ppi
[2024-06-04] MEDS: ENOXAPARIN 40MG/0.4ML SYRINGE 40 MG SUBCUT (13:46)
--- NOTE | 2024-06-04 17:00 | PC.NURSE ---
aox4, room air well. has tolerated diet well up to this point. ambulated in hallway with walker. no acute changes.
[2024-06-04] MEDS: TRAZODONE 50MG TABLET 50 MG PO (21:02)
[2024-06-04] MEDS: ATORVASTATIN 20MG TABLET 20 MG PO (21:02)
[2024-06-04] MEDS: PANTOPRAZOLE 40MG TABLET 40 MG PO (21:02)
[2024-06-05] VITALS (8 sets, daily range): BP systolic 118–136; BP diastolic 51–72; PULSE 61–77; RESP 14–18; TEMP 36.3–36.8; O2SAT 94–98; BMI 29.4; BMI 28.9
--- NOTE | 2024-06-05 05:06 | PC.NURSE ---
Addendum entered by Teodora Templeton RN 06/05/24 05:23: when patient was up ambulating, he used walker and did well with the walker. Original Note: Pt. is alert and orientated x 4. Pt. on room air. Pt. with Midline abdominal incision. dressing in place, dressing, clean,dry, intact. Pt. c/o pain with movement but has Morphine QUARRY PLANT CRUSHER OPERATOR. Pt. using QUARRY PLANT CRUSHER OPERATOR and has been comfortable this shift. Pt. does c/o some light headedness and dizziness when moving around. Pt. did get up to ambulate in the martin. Ambulated 150 feet with standby assistance. IV fluids infusing. Incentive spirometer at bedside and encouraged to use. SCUD's in place while laying the bed. Pt. taking clear liquid diet and tolerating well. Personal items and call garcia in reach.
--- NOTE | 2024-06-05 06:49 | PC.NURSE ---
11 Mg of Morphine cleared from the COCOA MILLING MACHINE OPERATOR pump this shift.
[2024-06-05 08:14] LABS: Basophils # 0.1 K/mm3 (0-0.2); Basophils % 0.7 % (0.1-2.0); Eosinophils # 0.1 Kmm3 (0.0-0.4); Eosinophils % 1.4 % (0.1-12.0); Hematocrit 30.4 % (42.0-52.0); Lymphocytes # 1.4 K/mm3 (0.7-4.5); Lymphocytes % 13.5 % (10-50); Mean Corpuscular HGB Conc 32.9 g/dL (31.8-35.4); Mean Corpuscular Hemoglobin 32.2 pg (27.0-31.2); Mean Corpuscular Volume 97.7 fl (80-94); Mean Platelet Volume 10.7 fl (7.4-10.4); Monocytes # 1.4 K/mm3 (0.1-1.0); Monocytes % 13.9 % (1.7-9.3); Neutrophils # 7.2 K/mm3 (1.8-7.8); Neutrophils % 69.9 % (37.0-80.0); Nucleated Red Blood Cells # 0 10^3/uL; Nucleated Red Blood Cells % 0 %; Platelet Count 200 K/mm3 (142-424); Red Blood Count 3.11 M/mm3 (4.60-6.20); Red Cell Distribution Width-SD 46.3 fL; White Blood Count 10.4 K/mm3 (4.8-10.8)
[2024-06-05 08:17] LABS: Chloride 110 mmol/L (98-107); Sodium 137 mmol/L (136-145)
[2024-06-05 08:20] LABS: Blood Urea Nitrogen 15 mg/dl (9-20); Carbon Dioxide 22 mmol/L (22.0-30.0); Creatinine Clearance Estimated 97 mL/min (50-200); Estimated Glomerular Filt Rate 96 ml/min (>60); GFR (African American) 117 ML/MIN (>60)
[2024-06-05 08:21] LABS: Calcium 7.6 mg/dl (8.4-10.2); Glucose 58 mg/dl (74-100)
[2024-06-05] MEDS: DAPAGLIFLOZIN PROPANEDIOL 10 MG TABLET PO (08:22)
[2024-06-05] MEDS: ENOXAPARIN 40MG/0.4ML SYRINGE 40 MG SUBCUT (08:22)
[2024-06-05] MEDS: IRBESARTAN 150MG TAB 150 MG PO (08:23)
[2024-06-05] MEDS: buPROPion HCl SR 150MG TAB 450 MG PO (08:23)
[2024-06-05] MEDS: 0.9 % SODIUM CHLORIDE 1000ML 1,000 ML 125 ML IV (08:27)
--- NOTE | 2024-06-05 10:22 | PC.NURSE ---
pt is alert and oriented this morning. reports passing gas through out the shift. his abdomen is tender but bowel sounds are present. pt has some generalized edema through out his body including bue and ble. he feels the BUSINESS MANAGEMENT CONSULTANT is adequately managing his pain @ this time after new IV insertion.
--- NOTE | 2024-06-05 11:29 | P.PN_ITS ---
Subjective Patient reports: tolerating liquids well and flatus Narrative: The patient states that he feels pretty good overall . He is concerned that he is still requiring walker with ambulation (feels slightly dizzy/unsteady). No nausea. Tolerating clear liquids. Exam Data for Last 24 hours Vital signs and Labs for Last 24 Hours: Temp Pulse Resp BP Pulse Ox O2 Del Method O2 Flow Rate 98 F 70 16 130/72 96 Room Air 1.5 06/05/24 10:00 06/05/24 10:00 06/05/24 10:00 06/05/24 10:00 06/05/24 10:00 06/05/24 09:00 06/03/24 08:00 Laboratory Results - last 24 hr 06/05/24 06:15: WBC 10.4 D, RBC 3.11 L, Hgb 10.0 L, Hct 30.4 L, MCV 97.7 H, MCH 32.2 H, MCHC 32.9, RDW 13.0, Plt Count 200, MPV 10.7 H, Neut % (Auto) 69.9, Lymph % (Auto) 13.5, [place] % (Auto) 13.9 H, Eos % (Auto) 1.4, Baso % (Auto) 0.7, Neut # (Auto) 7.2, Lymph # (Auto) 1.4, [place] # (Auto) 1.4 H, Eos # (Auto) 0.1, Baso # (Auto) 0.1, Sodium 137, Potassium 4.0, Chloride 110 H, Carbon Dioxide 22, Anion Gap 9.0, BUN 15 D, Creatinine 0.80, Estimated Creat Clear 97, Estimated GFR 96, Est GFR ( Amer) 117 D, Glucose 58 L, Calcium 7.6 L I & O for Last 24 hours: Intake & Output 06/02/24 06/03/24 06/04/24 06/05/24 11:59 11:59 11:59 11:59 Intake Total 2500 / 2500 650 / 650 3728 / 3728 2846 / 2846 Output Total 900 / 900 1080 / 1080 660 / 660 Balance 2500 / 2500 -250 / -250 2648 / 2648 2186 / 2186 Weight 196 lb 9 oz 207 lb 8 oz 206 lb 7.985 oz 206 lb 7 oz Constitutional Constitutional: no acute distress *Routine Respiratory Exam Respiratory: Absent respiratory distress *Routine Cardiovascular Exam Cardiovascular: Absent tachycardia *Routine Abdominal Exam Abdominal: Present soft Comments: Incision clean, dry, and intact. No erythema. Progress Note: A&P Assessment and plan (1) Appendiceal tumor: Status: Acute Assessment and plan: Overall, doing fairly well postoperative day 3 status post right hemicolectomy. Evidence of bowel function return noted. The patient has voiced mild concern about unsteadiness with walking. Full liquid diet Close ongoing assessment with ambulation Possible PT/OT consultation in morning DC EXPERIMENTAL MECHANIC OUTBOARD MOTORS (2) Hypertension: Status: Acute Assessment and plan: home meds (3) GERD (gastroesophageal reflux disease): Status: Acute Assessment and plan: ppi
--- NOTE | 2024-06-05 11:34 | PC.NURSE ---
EGG PROCESSOR discontinued. pt reports current pain level 2/10
--- NOTE | 2024-06-05 11:57 | PC.NURSE ---
8mg of remaining CUSTOMER SECURITY CLERK wasted with Aniya Page RN.
[2024-06-05] MEDS: 0.9 % SODIUM CHLORIDE 1000ML 1,000 ML 50 ML IV (12:20)
[2024-06-05] MEDS: KETOROLAC 10MG TABLET 10 MG PO ×3 (12:20→23:22)
--- NOTE | 2024-06-05 14:29 | PC.NURSE ---
pt currently ambulating in martin independently with SBA for safety. he is tolerating well.
[2024-06-05] MEDS: TRAZODONE 50MG TABLET 50 MG PO (21:47)
[2024-06-05] MEDS: PANTOPRAZOLE 40MG TABLET 40 MG PO (21:47)
[2024-06-05] MEDS: ATORVASTATIN 20MG TABLET 20 MG PO (22:09)
[2024-06-06] VITALS: BP 130/56; PULSE 65; RESP 14; TEMP 36.3; O2SAT 95
[2024-06-06 04:00] VITALS: BP 121/51; PULSE 64; RESP 14; TEMP 36.9; BMI 28.8
--- NOTE | 2024-06-06 04:57 | PC.NURSE ---
Pt. is alert and orientated x4. Pt. is on room air, Pt. has midline abdominal incision with dressing clean, dry and intact. Pt. c/o minimal pain from incision. Pain does increase with activity. Pt. was taken off SUBASSEMBLY SUPERVISOR pump and transitioned to oral pain meds. Tolerating oral pain meds well with relief of the pain. Pt. has been up walking in the halls 4-5 times yesterday. Pt. also up in chair quite a while. While up walking IV fluids turned off and SCUD's off. When pt. in bed, IVF infusing and SCUD's in place. Pt. encouraged to use incentive spirometer every 1-2 hours while awake.Pt. on full liquid diet tolerating well. Pt. feels hungary. . Personal items and call garcia in reach.
[2024-06-06] MEDS: KETOROLAC 10MG TABLET 10 MG PO ×2 (06:09→11:12)
[2024-06-06 08:00] VITALS: BP 137/56; PULSE 60; RESP 18; TEMP 36.6; O2SAT 96
--- NOTE | 2024-06-06 08:20 | P.PN_ITS ---
Subjective Patient reports: no new complaints Narrative: The patient states that he feels a little better . He continues to have concerns with regard to stability/mobility. He notes that he has been able to ambulate but is worried that (he) will not be okay at home Exam Data for Last 24 hours Vital signs and Labs for Last 24 Hours: Temp Pulse Resp BP Pulse Ox O2 Del Method O2 Flow Rate 98.5 F 64 14 121/51 L 95 Room Air 1.5 06/06/24 04:00 06/06/24 04:00 06/06/24 04:00 06/06/24 04:00 06/06/24 00:00 06/06/24 08:05 06/03/24 08:00 Laboratory Results - last 24 hr 06/05/24 06:15: Sodium 137, Potassium 4.0, Chloride 110 H, Carbon Dioxide 22, Anion Gap 9.0, BUN 15 D, Creatinine 0.80, Estimated Creat Clear 97, Estimated GFR 96, Est GFR ( Amer) 117 D, Glucose 58 L, Calcium 7.6 L I & O for Last 24 hours: Intake & Output 06/03/24 06/04/24 06/05/24 06/06/24 11:59 11:59 11:59 11:59 Intake Total 650 / 650 3728 / 3728 3326 / 3326 1164 / 1164 Output Total 900 / 900 1080 / 1080 960 / 960 700 / 700 Balance -250 / -250 2648 / 2648 2366 / 2366 464 / 464 Weight 207 lb 8 oz 206 lb 7.985 oz 206 lb 7 oz 206 lb 6.701 oz Constitutional Constitutional: no acute distress *Routine Respiratory Exam Respiratory: Absent respiratory distress *Routine Cardiovascular Exam Cardiovascular: Absent tachycardia *Routine Abdominal Exam Abdominal: Present soft Comments: Incision clean, dry, and intact. No erythema. Progress Note: A&P Assessment and plan (1) Appendiceal tumor: Status: Acute Assessment and plan: Overall, doing fairly well postoperative day 4 status post right hemicolectomy. Evidence of bowel function return noted. The patient has voiced continued concern mobility issues/unsteadiness. He does not feel safe to go home . Physical therapy consult pending [place] diet ordered (2) Mobility impaired: Status: Acute Assessment and plan: Physical therapy consult pending (3) Hypertension: Status: Acute Assessment and plan: home meds (4) GERD (gastroesophageal reflux disease): Status: Acute Assessment and plan: ppi
[2024-06-06] MEDS: DAPAGLIFLOZIN PROPANEDIOL 10 MG TABLET PO (09:42)
[2024-06-06] MEDS: buPROPion HCl SR 150MG TAB 450 MG PO (09:42)
[2024-06-06] MEDS: ENOXAPARIN 40MG/0.4ML SYRINGE 40 MG SUBCUT (09:42)
[2024-06-06] MEDS: IRBESARTAN 150MG TAB 150 MG PO (09:44)
--- NOTE | 2024-06-06 12:05 | HMH.PTEV ---
Physical Therapy Evaluation Rehab PT IP Evaluation Start: 06/06/24 08:15 Freq: ONCE Status: Active Protocol: Document 06/06/24 09:45 TR (Rec: 06/06/24 12:05 PHONIMISHA [id number]) Subjective/History History History 69-year-old gentleman seen in consultation from Dr. 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 OR for partial colectomy on 06/02. Pt reports she lives with spouse, no SYED the home, and he is generally independent with all mobility at baseline. Subjective Subjective Pt reports no significant pain in his abdomen this am. He agrees to mobility assessment. [facility] How much help from another person do you currently need... Turning from your back to your side None while in a flat bed without using bedrails? Moving from lying on back to sitting on None the side of a flat bed without using bedrails? Moving to and from a bed to a chair ( None including a wheelchair)? Standing up from a chair using your arms None ? (e.g., wheelchair, bedside chair) Walking in hospital room? None Climbing 3-5 steps with a railing? None Mobility Score 24 Mobility Level [facility] Mobility Calculator Mobility 8 Walk 250 feet or more Rehab PT IP Eval Objective Appearance Patient Behavior Appropriate Patient Orientation Person,Place,Time Difficulty following instructions none Speech Pattern Clear Ambulation Patient Able to Ambulate Yes Ambulation Observation IP General Gait Pattern Observation No Deviations/Normal Ambulation Distance (feet) 300 Ambulation Assistive Device None Ambulation Ability Independent Balance Ability to Arise Able, uses arms to help Sitting Balance Steady, safe Standing Balance Narrow stance w/o support Dynamic Sitting Balance Ability Good Dynamic Standing Balance Ability Good Transfers Bed Transfer Ability Independent Chair Transfer Ability Independent Sit to Stand Bed Transfer Ability Independent Sit to Stand Chair Transfer Ability Independent ROM All Extremities PT ROM Status WFL MMT All Extremities PT MMT WFL Rehab PT IP prob,goals,plan Problems Date of Evaluation: 06/06/24 Discharge Plan PT Discharge Plan Pt currently has no inpatient acute therapy needs and is appropriate to return home once medically stable for d/c. Eval Complexity Eval Charge Codes 93153 - High Complexity PHYSICIAN CERTIFICATION: I certify the specified therapy services for Elvin Mantle are required, authorized, and reviewed every 30 days.
--- NOTE | 2024-06-06 15:15 | EXP.DC.SUM ---
General Admission date:: 06/02/24 Discharge date: 06/06/24 HPI HPI HPI: Forwarded from office visit dated April 27, 2024: This is a 69-year-old gentleman seen in consultation from Dr. 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 Colonoscopy procedure report reviewed. Impression/plan forwarded below: Impression: 1. 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 Colonic polyps x 3 3. Left-sided diverticulosis 4. 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 We will plan to do a CAT scan of the abdomen to more accurately diagnose whether this could be a mucocele because these have a risk of malignancy or perforation within the abdominal cavity resulting in a condition called pseudomyxoma peritonitei. I will obtain CAT scan today and then referral to surgery. I will follow-up the polyp histology and recommend repeat surveillance colonoscopy again in 3 years. I would encourage psyllium bulking fiber supplementation on a maintenance basis. CEA dated April 21, 2024 normal at 1.4 ng/mL Follow-up CT scan reviewed. Impression forwarded below: IMPRESSION: Soft tissue thickening of the appendiceal base, with wall thickening and enlargement which correlate with the patient's clinical history of appendiceal carcinoma as described above. No evidence of metastatic disease in the abdomen or pelvis isidentified. EKG dated February 25, 2023 reviewed. Essentially normal. Hospital Course Hospital Course Hospital Course: The patient underwent right hemicolectomy (see operative report for detail). Post-operatively, he progressed well. His diet was slowly advanced as bowel function returned. He remained afebrile with stable and normal vital signs. Due to patient concerns (re: mobility), a PT consult was completed. No specific concerns or needs noted per PT. On the afternoon of POD#4 he was deemed appropriate for discharge home with close outpatient follow-up. Exam Data for Last 24 hours Vital signs and Labs for Last 24 Hours: Temp Pulse Resp BP Pulse Ox O2 Del Method O2 Flow Rate 97.8 F 60 18 137/56 L 96 Room Air 1.5 06/06/24 08:00 06/06/24 08:00 06/06/24 08:00 06/06/24 08:00 06/06/24 08:00 06/06/24 15:00 06/03/24 08:00 I & O for Last 24 hours: Intake & Output 06/04/24 06/05/24 06/06/24 06/07/24 11:59 11:59 11:59 11:59 Intake Total 3728 / 3728 3326 / 3326 1524 / 1524 360 / 360 Output Total 1080 / 1080 960 / 960 700 / 700 Balance 2648 / 2648 2366 / 2366 824 / 824 360 / 360 Weight 206 lb 7.985 oz 206 lb 7 oz 206 lb 6.701 oz Constitutional Constitutional: no acute distress *Routine HEENT Exam Head: Present normocephalic Eye: Present EOMI ENT: Present mucous membranes moist *Routine Neck Exam Neck: Present full ROM Routine Chest/Breast/Axilla Exam Chest wall: Absent tenderness *Routine Respiratory Exam Respiratory: Absent respiratory distress *Routine Cardiovascular Exam Cardiovascular: Absent tachycardia *Routine Abdominal Exam Abdominal: Present soft Comments: inc c/d/i *Routine Rectal Exam Patient deferred: visual exam *Routine Exam Patient deferred: penile exam *Routine Extremities Exam Extremities: Present full ROM Routine Back/Spine/Pelvis Exam Back/Spine: Present full ROM *Routine Skin Exam Skin: Absent erythema *Routine Neurological Exam Neurological: Present alert Routine Psychiatric Exam Psychiatric: Present normal affect DS: Diagnosis Discharge Diagnosis (1) Appendiceal tumor: Status: Acute Code(s): 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.3 - Neoplasm of uncertain behavior of appendix (2) Mobility impaired: Status: Acute Code(s): Z74.09 - Other reduced mobility (3) Hypertension: Status: Acute Code(s): I10 - Essential (primary) hypertension Qualifiers: Hypertension type: unspecified Qualified Code(s): I10 - Essential (primary) hypertension (4) GERD (gastroesophageal reflux disease): Status: Acute Code(s): K21.9 - Gastro-esophageal reflux disease without esophagitis Qualifiers: Esophagitis presence: esophagitis presence not specified Qualified Code(s): K21.9 - Gastro-esophageal reflux disease without esophagitis Meds Home Medications and Allergies Home Medications ?Medication ?Instructions ?Recorded ?Confirmed ?Type trazodone 50 mg tablet 50 mg PO HS 06/23/18 06/02/24 History losartan 100 mg tablet 100 mg PO DAILY 30 days #30 tabs 11/18/19 06/02/24 Rx bupropion HCl 150 mg 24 hr tablet, 450 mg PO DAILY 02/25/23 06/02/24 History extended release (Wellbutrin XL) atorvastatin 20 mg tablet 20 mg PO HS 03/02/23 06/02/24 History dapagliflozin propanediol 10 mg 10 mg PO DAILY 08/03/23 06/02/24 History tablet (Farxiga) pantoprazole 20 mg tablet,delayed 20 mg PO DAILY #30 tabs 08/03/23 06/02/24 Rx release polyethylene glycol 3350 17 17 g PO DAILY 06/02/24 06/02/24 History gram/dose oral powder (Miralax) hydrocodone 5 mg-acetaminophen 325 1 tab PO Q6H PRN post-op pain #17 06/06/24 Rx mg tablet tabs New Prescriptions to Start Prescriptions: hydrocodone-acetaminophen Ronald Delcid Allergies Allergy/AdvReac Type Severity Reaction Status Date / Time amoxicillin (From Augmentin) Allergy Mild Rash Verified 06/02/24 06:40 clavulanic acid (From Allergy Mild Rash Verified 06/02/24 06:40 Augmentin) Penicillins Allergy hives Verified 06/02/24 06:40 Sulfa (Sulfonamide Allergy Hives Verified 06/02/24 06:40 Antibiotics) Tetracyclines AdvReac Mild CARDENAS Verified 06/02/24 06:40 Discharge Plan Disposition Patient Disposition: Home, Self-Care Discharge Order Discharge Orders: Discharge Order (Routine); Ordered 06/06/24 Ordered By: Ronald Delcid Follow up Plan Follow up with: Ronald Delcid MD [Staff Physician] - 06/08/24 Prescriptions/Medication Reconciliation: New hydrocodone-acetaminophen 5-325 mg tablet 1 tab PO Q6H PRN (Reason: post-op pain) Qty: 17 0RF Continued trazodone 50 mg tablet 50 mg PO HS bupropion HCl [Wellbutrin XL] 150 mg tablet extended release 24 hr 450 mg PO DAILY dapagliflozin propanediol [Farxiga] 10 mg tablet 10 mg PO DAILY Patient Comments: TAKE ONE TABLET BY MOUTH EVERY DAY pantoprazole 20 mg tablet,delayed release (DR/EC) 20 mg PO DAILY Qty: 30 3RF atorvastatin 20 mg tablet 20 mg PO HS Patient Comments: TAKE ONE TABLET BY MOUTH EVERY DAY polyethylene glycol 3350 [Miralax] 17 gram/dose powder 17 g PO DAILY Rx Instructions: Take 17 grams daily in morning dissolved in liquid of choice. May titrate to effect/consistency of stool. losartan 100 MG tablet 100 mg PO DAILY 30 Days Qty: 30 0RF Problem Reconciliation Problems Reviewed?: Yes Patient Discharge Instructions ACTIVITY: No heavy lifting DIET: advance to your usual diet Patient Instructions: DI for Surgical Site Infection, Catheter-Associated Urinary Tract Infection Print Language: Upper Sorbian Providers Primary Care Provider: Francis Brown Admit Provider: Ronald Delcid Attending Provider: Ronald Delcid
--- NOTE | 2024-06-06 15:23 | PC.NURSE ---
PT HAS AMBULATED IN THE CRAMER AND HAS TOLERATED A SOFT DIET. MIDLINE INCISION NOTED TO ABDOMEN OPEN TO AIR. SEVERAL PATRICIA WERE REMOVED THIS SHIFT. STERI STRIPS IN PLACE. PT IS COMFORTABLE WITH BEING DISCHARGED HOME.
--- NOTE | 2024-06-07 11:11 | SW/DCPLANNER ---
Spoke with patient on the phone. Patient stated that he is doing good and getting better. Patient stated that he is aware of his upcoming appointments. Patient stated that he was able to warehouse picker his new medicine at clinic pharmacy. Patient stated that he has no concerns or questions at this time. Tabatha Espinoza
== END 2024-06-06 16:02 | disposition home or self-care (01) | DRG 331 ==
LOC: 2ND 10:02
PROVIDERS: Admitting Provider Surgery; PCP Internal Medicine Adolescent Medicine; Visit Provider Surgery
PROC: 0DTF0ZZ Resection of Right Large Intestine, Open Approach (ICD-10-PCS; principal; 2024-06-02 07:30)
DX: D12.1 Benign neoplasm of appendix (principal); K57.30 Diverticulosis of large intestine without perforation or abscess without bleeding; I10 Essential (primary) hypertension; K21.9 Gastro-esophageal reflux disease without esophagitis; E78.5 Hyperlipidemia, unspecified; E11.9 Type 2 diabetes mellitus without complications; K29.70 Gastritis, unspecified, without bleeding; Z88.0 Allergy status to penicillin; Z88.2 Allergy status to sulfonamides; Z88.1 Allergy status to other antibiotic agents; Z79.899 Other long term (current) drug therapy; Z82.49 Family history of ischemic heart disease and other diseases of the circulatory system; Z86.0100 Personal history of colon polyps, unspecified; Z74.1 Need for assistance with personal care; Z79.84 Long term (current) use of oral hypoglycemic drugs; Z74.09 Other reduced mobility
CPT/HCPCS: 36415; 80048; 81001; 82962; 85007; 85025; 86850; 96374; 97163; J3490; J0666; J0736; J1100; J1171; J1650; J2270; J2405; J3010; J7030; J7120

== ENCOUNTER 2024-06-15 14:52 | Outpatient (CLI) | payer MEDICARE, SELFPAY ==
--- OUTSIDE RECORDS SUMMARY | 2024-06-15 14:54 | XMS_ITS | Data Portability ---
Author Organization [facility] & [facility] ADMIN Address [address] [place] [id number] Care Team Providers Care [employer] Senior Sergeant Name Role Phone PRIYA CONCEPCION Primary Care [...] By Organization Details Last Modified Time 02/25/2022 [id number] 1-Discussed findings with Mr. Paige. 2-Rec new hearing aids; he will pursue through his health insurance. 3-F/u hearing testing annually to monitor. mandy Not available 02/25/2022 10:55:32 03/20/2022 [id number] 1-Mr. Paige was fit with Unitron Moxi B3-R PREETI hearing aids. 2-F/u prn. [email or web address] Not available 03/20/2022 09:10:51 Reason for Referral [...] Organization Details Recorded Time Sensorineural hearing loss [id number] Active 2022 JULIET CRAWLEY, AUD [address] [facility], [place], [address] , [facility] & [place] 02/02/202 3 09:10:16 Problem Notes None recorded. [...] SNOMED-CT Code Diagnosis ICD10 Code Diagnosis Note [id number] BRADY AS[facility]W [facility] [place] [address] [address] [facility] [address] [place] [phone] 02/25/2022 09:57:44 02/25/2022 10:24:52 Sensorineural hearing loss [id number] H90.3 [id number] BRADY ASKE[facility] [place] [address] [place] [address] [place] [phone] 03/20/2022 08:15:03 03/20/2022 08:59:26 Sensorineural hearing loss [id number] H90.3 [id number] BRADY ASKEW [facility] [address] [place] [address] [place] [address] 05/03/2024 15:18:33 05/03/2024 15:31:30 Sensorineural hearing loss [id number] H90.3 Health Concerns Section Related Observation LastModified by Organization Detai ls LastModified Time None Recorded Concern Status LastModified by Organization Details LastModified Time None Recorded Advance Directives Directive None Recorded Payers Encounter Date Sequence Insurance Name Policy Number Policy Carney Covered Member ID Carney Member ID Guarantor Name 02/25/2022 1 [employer] [facility] [facility] - DOS PRIOR TO 2024 (PPO) Elvin Paige [id number] Elvin Paige 03/20/2022 1 [employer] [facility] - DOS PRIOR TO 2024 (PPO) Elvin Paige [id number] Elvin Paige 05/03/2024 1 [facility] (MEDICARE REPLACEMENT/A DVANTAGE - PPO) [id number] Elvin Paige [id number] Elvin Paige Notes Date Note Type Note [...] unremarkable bilaterally. BRADY ASKEW [address], [place], [address], [facility] & [place] 02/25/2022 10:55:41 03/20/2022 text/html Mr. Paige was seen today for a hearing aid fitting. BRADY ASKEW [address], [place], [address], [facility] & [place] 03/20/2022 09:11:05 05/03/2024 text/html Patient was seen today for a hearing aid service. Cleaned and adjusted hearing aids this date. BRADY ASKEW [address], [place], [address], [facility] & [place] 05/03/2024 15:54:13
--- OUTSIDE RECORDS SUMMARY | 2024-06-15 14:54 | XMS_ITS | Data Portability ---
Author Organization [facility] KATIANA Gonzalez [place] [facility] Address [address] [place] [address] Care Team Providers Care Geophysical E Logger Name Role Phone ELAFREDERICK PRIYA Primary Care Provider Assessment No assessment recorded. [...] - Destruction BN Lesions completed Cathi Ashby [facility] 05/18/2023 13:45:42 Imaging Results None recorded. Procedure Notes None recorded. Medical Equipment None Reported. Allergies Allergen ID Allergen Name Allergen Category Reaction Reaction Severity Criticality Documentation Date Start Date Code Code System Note Provider Name and Address Organization Details Recorded Time 200919 Product containin g penicilli n (product) medicatio n Not available Not available Not available 05/18/2023 51002 8001 SNOMED Maday [facility] 13:25:07 [id number] Substance with sulfonami de structure and antibacte rial mechanism of action (substanc e) medicatio n Not available Not available Not available 05/18/2023 10733 8003 SNOMED Maday [facility] 13:25:11 767482 Medicinal product containin g tetracycl ine structure and acting as antibacte rial agent (product) medicatio n Not available Not available Not available 05/18/2023 02350 1004 SNOMED Maday Larrykinson [facility] 13:25:20 [id number] Augmentin medicatio n Not available Not available Not available 05/18/2023 45012 2 RxNorm Madayanjelica LarryBarajas [facility] 13:25:26 Medications Name Sig Start Date Stop [...] Tobacco Smoking Status Never Smoker Madaycarlos Barajas [facility] 05/18/2023 13:26:34 What Is Your Level Of Alcohol Consumption? None [email or web address] Information not available 05/18/2023 Sex: Unknown Functional Status None recorded. Mental Status None recorded. Family History Nothing Reported. 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 Condition Response Squamous Cell Carcinoma N Melanoma N Basal Cell Carcinoma N Past Encounters Encounter ID Performer Location Encounter Start Date Encounter Closed Date Diagnosis/Indication Diagnosis SNOMED-CT Code Diagnosis ICD10 Code Diagnosis Note [id number] JOSE SHARIF PA-C [address] [address] 05/18/2023 13:10:07 05/18/2023 15:13:55 Multiple benign melanocytic nevi [id number] D22.5 D18.01 L82.1 L81.4 The benign nature [...] lesions are noted. Inflamed s eborrheic keratosis 906595231 L82.0 Benign.Ris ks of blistering , discolorat ion and scarring discussed. Will tx with LN2 since bothersome . External hordeolum 97739 08 H00.011 The etiology of lesion(s) discussed. [...] DOS PRIOR TO 2024 (PPO) Elvin Paige [id number] Elvin Paige Notes Date Note Type Note Provider Name and Address Organization Details Recorded Time 05/18/2023 text/html Here for a full body skin examination - first skin check: {{}}- no history of skin cancer- spots of concern today: {{ Back, L lower lid #}} JOSE SHARIF PA-C [address], [place], [address], [facility] 05/18/2023 15:04:52
[2024-06-15 15:10] VITALS: BP 145/69; PULSE 73; RESP 17; O2SAT 97
[2024-06-15] MEDS: KETOROLAC 30MG/ML VIAL 15 MG IM (15:10)
[2024-06-15 17:02] LABS: Basophils # 0.1 K/mm3 (0-0.2); Basophils % 0.6 % (0.1-2.0); Eosinophils # 0.5 Kmm3 (0.0-0.4); Eosinophils % 4.2 % (0.1-12.0); Hematocrit 33.9 % (42.0-52.0); Hemoglobin 11.1 g/dL (14.1-18.0); Lymphocytes # 0.7 K/mm3 (0.7-4.5); Lymphocytes % 6.5 % (10-50); Mean Corpuscular HGB Conc 32.7 g/dL (31.8-35.4); Mean Corpuscular Hemoglobin 31.2 pg (27.0-31.2); Mean Corpuscular Volume 95.2 fl (80-94); Mean Platelet Volume 10.8 fl (7.4-10.4); Monocytes # 1.9 K/mm3 (0.1-1.0); Monocytes % 16.9 % (1.7-9.3); Neutrophils # 7.9 K/mm3 (1.8-7.8); Neutrophils % 70.2 % (37.0-80.0); Nucleated Red Blood Cells # 0 10^3/uL; Nucleated Red Blood Cells % 0 %; Platelet Count 398 K/mm3 (142-424); Red Blood Count 3.56 M/mm3 (4.60-6.20); Red Cell Distribution Width 14.1 % (11.5-17.5); Red Cell Distribution Width-SD 49.8 fL; White Blood Count 11.2 K/mm3 (4.8-10.8)
[2024-06-15 17:05] LABS: Anion Gap 9.9 mEq/L (5-15); Blood Urea Nitrogen 10 mg/dl (9-20); Calcium 8.4 mg/dl (8.4-10.2); Carbon Dioxide 25 mmol/L (22.0-30.0); Chloride 106 mmol/L (98-107); Estimated Glomerular Filt Rate 84 ml/min (>60); GFR (African American) 102 ML/MIN (>60); Glucose 104 mg/dl (74-100); MANUAL DIFFERENTIAL MANUAL DIFFERENTIAL (MANUAL DIFF); Potassium 3.9 mmoL/L (3.5-5.1); Sodium 137 mmol/L (136-145)
[2024-06-15 18:21] LABS: Eosinophils % 8 % (0-3); Lymphocytes % 12 % (10-50); Monocytes % 15 % (2-9); Neutrophils % 65 % (42-76); Total Cells Counted 100
[2024-06-15 18:26] LABS: Platelet Estimate Normal
[2024-06-15 18:27] LABS: Burr Cells 1+
== END 2024-06-15 15:40 | disposition home or self-care (01) ==
LOC: INF 14:53
PROVIDERS: PCP Internal Medicine Adolescent Medicine; Visit Provider Surgery
DX: R10.9 Unspecified abdominal pain (principal)
CPT/HCPCS: 36415; 80048; 85007; 85025; 96372; J1885

== ENCOUNTER 2024-06-16 07:17 | Observation (INO) | payer MEDICARE, SELFPAY ==
[2024-06-16] VITALS (16 sets, daily range): BP systolic 135–180; BP diastolic 71–96; PULSE 80–152; RESP 16–34; TEMP 36.3–37.4; O2SAT 95–99; BMI 37.5; BMI 29.4; BMI 29.5
--- NOTE | 2024-06-16 07:33 | ECG_ITS ---
APPROVED REPORT Exam: Resting ECG HR:150 bpm ECG Measurements Heart Rate 150 AXES QRSd 82 QRS 35 QT 157 T 120 QTc 243 Conclusion Sinus tachycardia with NV about 180 ms, QRS 82, QTc 243. No acute ischemic change Electronically signed by : CHARIS MCKEON, 06/17/2024 07:09:58
--- NOTE | 2024-06-16 07:39 | CT_ITS ---
FINAL REPORT TECHNIQUE: After the administration of intravenous contrast, axial images were obtained through the abdomen and pelvis by computed tomography. Coronal and sagittal reformatted images were obtained. The study was performed with techniques to keep radiation dose as low as reasonably achievable, (ALARA). Individual dose reduction techniques using automated exposure control or adjustment of mA and/or kV according to the patient's size were employed. CLINICAL HISTORY: Recent surgery 2 week ago hemicolectomy, eval anastomosis. fever, abd pain COMPARISON: 04/21/2024 FINDINGS: Abdomen: The liver parenchyma is homogeneous. Gallstones are noted in the gallbladder. There is moderate ascites in the abdomen and pelvis, which is new since the prior exam. The pancreas is atrophic. The adrenals and kidneys appear unremarkable. There are new postoperative changes in the right lower quadrant. The appendix is no longer visualized, likely surgically absent. There is moderate sigmoid diverticulosis without diverticulitis. There is mild mucosal thickening in several loops of small bowel in the right hemiabdomen. There is mild stranding in the mesentery but no evidence of free air. IMPRESSION: Interval postoperative changes right lower quadrant. Moderate ascites in the abdomen and pelvis. Moderate sigmoid diverticulosis without diverticulitis. Reviewed, Interpreted and Dictated by Wayne Soria MD Transcribed by Gloria Fox Authenticated and [facility]
--- NOTE | 2024-06-16 07:40 | CT_ITS ---
FINAL REPORT TECHNIQUE: Postcontrast axial images of the chest were performed in a CTA protocol. This study was performed with techniques to keep radiation doses as low as reasonably achievable, (ALARA). Individualized dose reduction technique using automated exposure control or adjustment of mA and/or kV according to the patient's size were employed. CLINICAL HISTORY: recent surgery 2 weeks ago Hemacolectomy, tachycardia, fever, lightheaded FINDINGS: The heart is normal in size. No adenopathy is identified. No pleural or pericardial effusion is identified. The thoracic aorta is normal in caliber with no focal aneurysm or dissection identified. There is no filling defect to suggest pulmonary embolism. There is mild linear density at the left lung base consistent with atelectasis. Otherwise, no lung infiltrate or mass is identified. IMPRESSION: No evidence for PE on this exam. Left base atelectasis. Reviewed, Interpreted and Dictated by Wayne Soria MD Transcribed by Concetta Bustos Authenticated and [facility]
[2024-06-16 07:52] LABS: Basophils # 0.1 K/mm3 (0-0.2); Basophils % 0.4 % (0.1-2.0); Eosinophils # 0.3 Kmm3 (0.0-0.4); Eosinophils % 2.2 % (0.1-12.0); Hematocrit 33.8 % (42.0-52.0); Hemoglobin 11.1 g/dL (14.1-18.0); Lymphocytes # 0.4 K/mm3 (0.7-4.5); Lymphocytes % 3.8 % (10-50); Mean Corpuscular HGB Conc 32.8 g/dL (31.8-35.4); Mean Corpuscular Hemoglobin 30.8 pg (27.0-31.2); Mean Corpuscular Volume 93.9 fl (80-94); Mean Platelet Volume 10.1 fl (7.4-10.4); Monocytes # 1.8 K/mm3 (0.1-1.0); Monocytes % 15.8 % (1.7-9.3); Neutrophils # 8.8 K/mm3 (1.8-7.8); Neutrophils % 76.3 % (37.0-80.0); Nucleated Red Blood Cells # 0 10^3/uL; Nucleated Red Blood Cells % 0 %; Platelet Count 495 K/mm3 (142-424); Red Cell Distribution Width 14.4 % (11.5-17.5); Red Cell Distribution Width-SD 49.6 fL; White Blood Count 11.6 K/mm3 (4.8-10.8)
[2024-06-16 07:54] LABS: Lactate Venous 1.4 mmol/L (0.4-2.0); VBG Base Excess -4.9 mmol/L (-2.4-2.3); VBG HCO3 19.4 mmol/L (23-30); VBG Oxygen Saturation 97.9 % (50-70); VBG PCO2 29.5 mmol/L (35-51); VBG PH 7.44 mmol/L (7.31-7.41); VBG Total CO2 20.3 mmol/L (23-27)
[2024-06-16 07:56] LABS: MANUAL DIFFERENTIAL MANUAL DIFFERENTIAL (MANUAL DIFF)
[2024-06-16 08:01] LABS: Albumin Level 3.3 g/dl (3.5-5.0); Chloride 104 mmol/L (98-107); Potassium 3.4 mmoL/L (3.5-5.1); Sodium 135 mmol/L (136-145)
[2024-06-16 08:04] LABS: Alanine Aminotransferase 23 U/L (12-78); Albumin/Globulin Ratio 1.1 (1.1-1.8); Alkaline Phosphatase 87 U/L (38-126); Anion Gap 14.4 mEq/L (5-15); Aspartate Amino Transferase 31 U/L (17-59); Blood Urea Nitrogen 9 mg/dl (9-20); Calcium 8.6 mg/dl (8.4-10.2); Carbon Dioxide 20 mmol/L (22.0-30.0); Creatinine Clearance Estimated 94 mL/min (50-200); Estimated Glomerular Filt Rate 75 ml/min (>60); GFR (African American) 90 ML/MIN (>60); Globulin 3.1 g/dL (1.3-3.2); Glucose 107 mg/dl (74-100); Total Protein,Serum 6.4 g/dl (6.3-8.2)
[2024-06-16 08:05] LABS: Lactic Acid 0.9 mmol/L (0.7-2.1); Magnesium 1.6 mg/dl (1.6-2.3)
[2024-06-16 08:07] LABS: Activated Partial Thrombo Time 30.6 seconds (22.8-30.6); INR 1.06 (0.9-1.1); Prothrombin Time 11.8 seconds (10.1-12.5)
[2024-06-16 08:17] LABS: Troponin I 0.02 ng/ml (0.00-0.034)
[2024-06-16 08:21] LABS: T4 (Thyroxine) 9.6 ug/dl (5.53-11.0)
[2024-06-16 08:24] LABS: Microscopic, Urine URINE MICROSCOPIC (MICROSCOPIC)
[2024-06-16] MEDS: IOPAMIDOL-370 (76%);100ML BOTTLE 80 ML IV (08:25)
[2024-06-16] MEDS: SODIUM CHLORIDE 0.9% 10ML SYR (RAD ONLY) 10 ML IV (08:25)
[2024-06-16] MEDS: 0.9 % SODIUM CHLORIDE 50 ML VIAL IV (08:25)
[2024-06-16 08:26] LABS: Eosinophils % 1 % (0-3); Lymphocytes % 9 % (10-50); Monocytes % 5 % (2-9); Neutrophils % 85 % (42-76); Platelet Estimate Slight Increase; RBC Morphology Normal; Total Cells Counted 100
--- NOTE | 2024-06-16 08:28 | ED_ITS ---
Discharge Plan Disposition Patient Disposition: Admitted Chief Complaint: Abdominal Pain Prescriptions Prescriptions: No Action trazodone 50 mg tablet 50 mg PO HS bupropion HCl [Wellbutrin XL] 150 mg tablet extended release 24 hr 450 mg PO DAILY dapagliflozin propanediol [Farxiga] 10 mg tablet 10 mg PO DAILY Patient Comments: TAKE ONE TABLET BY MOUTH EVERY DAY pantoprazole 20 mg tablet,delayed release (DR/EC) 20 mg PO DAILY Qty: 30 3RF ketorolac 10 mg tablet 10 mg PO Q8H 4 Days Qty: 12 0RF Rx Instructions: maximum total duration of 5 days from all oral, intranasal, or parenteral formulations atorvastatin 20 mg tablet 20 mg PO HS Patient Comments: TAKE ONE TABLET BY MOUTH EVERY DAY polyethylene glycol 3350 [Miralax] 17 gram/dose powder 17 g PO DAILY Rx Instructions: Take 17 grams daily in morning dissolved in liquid of choice. May titrate to effect/consistency of stool. hydrocodone-acetaminophen 5-325 mg tablet 1 tab PO Q6H PRN (Reason: post-op pain) Qty: 17 0RF losartan 100 MG tablet 100 mg PO DAILY 30 Days Qty: 30 0RF Referrals Follow up/Referrals: Francis Brown MD [Primary Care Provider] - See instructions Clinical Impressions Clinical Impression: SIRS (systemic inflammatory response syndrome), Atrial tachycardia Instructions Patient Instructions: DI for Acute Abdominal Pain Print Language Print Language: Tristanian Discharge ED Provider: Juan Alberto Tamez General Adult HPI General Chief complaint: Abdominal Pain Stated complaint: fever 103, high HR, poss reaction to Toradol Time Seen by Provider: 06/16/24 07:24 Mode of Arrival: Wheelchair Source of Information: Patient Description of Symptoms (Recalled from ER Triage Doc. by RN): patient states he had a hemacolectomy with Dr. Yanez on June 02, a few days after he developed RUQ pain. he came in yesterday for a follow up and was given toradol, 6 hours after he felt like his heart was racing and had a temp of 103 and no appetite. this am he took 400mg of tylenol. History of Present Illness HPI narrative: Please note that above description of symptoms, in this electronic medical record under categorization of recalled from ER triage doctor by RN are reflective of an initial nursing assessment, however, is not reflective of my full history and physical exam that was personally taken and clarified. Consequentially, this preceding description of symptoms, which may include the patient's categorized chief complaint in the EMR, do not reflect my personal clinical impression, and the ultimate description of history of present illness and patient stated complaints should be deferred to this section of the note. Unless stated otherwise or congruent with this section of the note, additional signs, symptoms, or incongruence should be interpreted as inaccurate with my clinical impression. Related Data Home Medications ?Medication ?Instructions ?Recorded ?Confirmed trazodone 50 mg tablet 50 mg PO HS 06/23/18 06/15/24 bupropion HCl 150 mg 24 hr tablet, 450 mg PO DAILY 02/25/23 06/15/24 extended release (Wellbutrin XL) atorvastatin 20 mg tablet 20 mg PO HS 03/02/23 06/15/24 dapagliflozin propanediol 10 mg 10 mg PO DAILY 08/03/23 06/15/24 tablet (Farxiga) polyethylene glycol 3350 17 17 g PO DAILY 06/02/24 06/15/24 gram/dose oral powder (Miralax) Previous Rx's ?Medication ?Instructions ?Recorded losartan 100 mg tablet 100 mg PO DAILY 30 days #30 tabs 11/18/19 pantoprazole 20 mg tablet,delayed 20 mg PO DAILY #30 tabs 08/03/23 release hydrocodone 5 mg-acetaminophen 325 1 tab PO Q6H PRN post-op pain #17 06/06/24 mg tablet tabs ketorolac 10 mg tablet 10 mg PO Q8H 4 days #12 tabs 06/15/24 Allergies Allergy/AdvReac Type Severity Reaction Status Date / Time amoxicillin (From Augmentin) Allergy Mild Rash Verified 06/15/24 14:00 clavulanic acid (From Allergy Mild Rash Verified 06/15/24 14:00 Augmentin) Penicillins Allergy hives Verified 06/15/24 14:00 Sulfa (Sulfonamide Allergy Hives Verified 06/15/24 14:00 Antibiotics) Tetracyclines AdvReac Mild CARDENAS Verified 06/15/24 14:00 PFSH PFSH Disclaimer: The information contained in this section may have been updated after the patient was seen, as this information can be updated by other users. 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 Positive colorectal cancer screening using Cologuard test Mass of left upper extremity Benign angiolipoma Hx of cataract Diabetes mellitus Dysphagia Anxiety and depression History of COVID-19 History of gastroesophageal reflux (GERD) Allergies Cataract Hyperlipidemia Hypertension Surgical History History of colon resection History of sinus surgery History of knee surgery RIGHT History of esophagogastroduodenoscopy (EGD) History of local excision of skin lesion History of colonoscopy Family History Other Family history of hypertension Family history of myocardial infarction Lung cancer Social History Smoking Status: Never smoker alcohol intake: never substance use type: denies use current occupational status: retired Travel in the last 8 weeks?: None household members: spouse housing: house 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 occupational exposures/hazards: No caffeine: Yes Have you lived/traveled outside US in past 30 days?: No Contact w/someone who lives/traveled outside US past 30 days?: No Exposure to someone with infectious disease in past 14 days?: No Do you have a fever (greater than 100.4 F or 38 C)?: Yes Have you tested positive for COVID-19?: No Exposed to someone with COVID-19 in past 14 days?: No Do you have a sore throat?: No Do you have a cough?: No Do you have any weakness?: No Do you have any diarrhea?: No Are you experiencing any unusual bleeding?: No Do you have any muscle aches/pain?: No Do you have any abdominal pain?: No Are you experiencing loss of taste or smell?: No Other 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 Have you received the Flu Vaccine for this season: No Have you received the Pneumonia Vaccine: Yes ROS Obtained: Yes All systems reviewed & no additional complaints except as documented Physical Exam General General appearance: alert and in no apparent distress Head Head exam: atraumatic and normocephalic Eye Eye exam: Present normal appearance, PERRL and EOMI Neck Neck exam: Present normal inspection, full ROM and trachea midline Respiratory Respiratory exam: Absent respiratory distress, wheezes, stridor, accessory muscle use or prolonged expiratory phase Cardiovascular Cardiovascular exam: Present other (Pulses equal symmetric in upper and lower extremities) Abdominal Exam Abdominal exam: Present soft, tenderness and incision; Absent distention, guarding, rebound, rigidity or pulsatile mass Extremities Exam Extremities exam: Absent edema Neurological Exam Neurological exam: Present alert, oriented X3 and CN II-XII intact; Absent motor sensory deficit Skin Skin exam: Present warm and dry; Absent diaphoresis or erythema Medical Decision Making Medical Records Medical records reviewed: Yes I reviewed the patient's medical records. Screening: Per USPSTF and CDC recommendations, given the prevalence of disease in our region, it is our hospital?s policy to screen for HIV and viral Hepatitis for all patients aged 18 and over and those with ongoing risk factors. Benito Inquiry Pt receiving controlled substance: No Benito was queried for this patient: No Vital Signs: 06/16/24 07:30 06/16/24 07:48 06/16/24 08:01 Temperature 99.4 F Temperature Source Oral Pulse Rate 148 H 150 H Pulse Rate [Left Radial] 152 H Respiratory Rate 20 18 16 Blood Pressure 172/96 H 156/88 H Blood Pressure [Left Arm] 176/96 H Blood Pressure Mean [Left Arm] 122 Blood Pressure Source Blood Pressure Source [Left Arm] Automatic Cuff Blood Pressure Position Blood Pressure Position [Left Arm] Supine 02 Sat by Pulse Oximetry 96 97 95 Oxygen Delivery Method Room Air Room Air Room Air 06/16/24 08:30 06/16/24 09:00 06/16/24 09:30 Temperature Temperature Source Pulse Rate 150 H 135 H 135 H Pulse Rate [Left Radial] Respiratory Rate 34 H 20 18 Blood Pressure 180/84 H 161/80 H 171/90 H Blood Pressure [Left Arm] Blood Pressure Mean [Left Arm] Blood Pressure Source Blood Pressure Source [Left Arm] Blood Pressure Position Blood Pressure Position [Left Arm] 02 Sat by Pulse Oximetry 95 97 98 Oxygen Delivery Method Room Air Room Air Room Air 06/16/24 10:30 06/16/24 10:51 06/16/24 11:00 Temperature 99.1 F Temperature Source Oral Pulse Rate 96 H 80 Pulse Rate [Left Radial] Respiratory Rate 31 H 18 16 Blood Pressure 139/75 139/75 152/73 H Blood Pressure [Left Arm] Blood Pressure Mean [Left Arm] Blood Pressure Source Automatic Cuff Blood Pressure Source [Left Arm] Blood Pressure Position Supine Blood Pressure Position [Left Arm] 02 Sat by Pulse Oximetry 96 97 Oxygen Delivery Method Room Air Room Air 06/16/24 11:30 Temperature Temperature Source Pulse Rate 82 Pulse Rate [Left Radial] Respiratory Rate 22 Blood Pressure 135/74 Blood Pressure [Left Arm] Blood Pressure Mean [Left Arm] Blood Pressure Source Blood Pressure Source [Left Arm] Blood Pressure Position Blood Pressure Position [Left Arm] 02 Sat by Pulse Oximetry 96 Oxygen Delivery Method Room Air Lab Data Lab Results 06/16/24 07:41: VBG pH 7.44 H, VBG pCO2 29.5 L, VBG pO2 97.0 H, VBG HCO3 19.4 L, VBG Total CO2 20.3 L, VBG O2 Saturation 97.9 H, VBG Base Excess -4.9 L, VBG Lactic Acid 1.4 06/16/24 07:44: WBC 11.6 H, RBC 3.60 L, Hgb 11.1 L, Hct 33.8 L, MCV 93.9, MCH 30.8, MCHC 32.8, RDW 14.4, Plt Count 495 H, MPV 10.1, Neut % (Auto) 76.3, Lymph % (Auto) 3.8 L, Louisa % (Auto) 15.8 H, Eos % (Auto) 2.2, Baso % (Auto) 0.4, Neut # (Auto) 8.8 H, Lymph # (Auto) 0.4 L, Louisa # (Auto) 1.8 H, Eos # (Auto) 0.3, Baso # (Auto) 0.1, Total Counted 100, Neutrophils % (Manual) 85 H, Lymphocytes % (Manual) 9 L, Monocytes % (Manual) 5, Eosinophils % (Manual) 1, Platelet Estimate Slight increase, RBC Morphology Normal, PT 11.8, INR 1.06, APTT 30.6, S odium 135 L, Potassium 3.4 L, Chloride 104, Carbon Dioxide 20 L, Anion Gap 14.4, BUN 9, Creatinine 1.00, Estimated Creat Clear 94, Estimated GFR 75, Est GFR ( Amer) 90, Glucose 107 H, Lactate 0.9, Calcium 8.6, Magnesium 1.6, Total Bilirubin 1.0, AST 31, ALT 23, Alkaline Phosphatase 87, Troponin I 0.02, Total Protein 6.4, Albumin 3.3 L, Globulin 3.1, Albumin/Globulin Ratio 1.1, TSH 1.33, Thyroxine (T4) 9.6, HCV Ab MELIZA w/Rflx PCR Qn Negative, HIV Ag/Ab Combo Qual Negative 06/16/24 08:20: Urine Color Yellow, Urine Appearance Clear, Urine pH 6.0, Ur Specific [place] 1.020, Urine Protein 1+ A, Urine Glucose (UA) 3+, Urine Ketones 3+, Urine Blood Trace-i, Urine Nitrate Negative, Urine Bilirubin 1+ A, Urine Urobilinogen 0.2, Ur Leukocyte Esterase Negative, Urine RBC 3-5, Urine WBC Occasional, Ur Squamous Epith Cells None, Urine Bacteria Trace 06/16/24 07:44 06/16/24 07:44 Orders (Tests/Meds): ED MEDICATIONS Discontinued Medications Generic Name Dose Route Start Last Admin Trade Name Freq PRN Reason Stop Dose Admin Lactated Ringer's 1,000 mls @ 999 mls/hr 06/16/24 08:31 06/16/24 08:45 Lactated Ringer's 1000 Ml Bag IV 06/16/24 09:31 999 mls/hr .Q1H1M ONE Administration Levofloxacin/Dextrose 750 mg in 150 mls @ 100 mls/hr 06/16/24 09:38 06/16/24 10:25 Levofloxacin 750mg/150ml Premix IV 06/16/24 11:07 100 mls/hr ONCE ONE Administration Metronidazole 500 mg in 100 mls @ 100 mls/hr 06/16/24 09:38 06/16/24 09:54 Flagyl 500mg/100ml Ivpb IV 06/16/24 10:37 100 mls/hr ONCE ONE Administration Iopamidol 80 ml 06/16/24 08:24 06/16/24 08:25 Iopamidol-370 (76%);100ml Bottle IV 06/16/24 08:25 80 ml ONCE ONE Administration Sodium Chloride 50 ml 06/16/24 08:24 06/16/24 08:25 0.9 % Sodium Chloride 50 Ml Vial IV 06/16/24 08:25 50 ml ONCE ONE Administration Sodium Chloride 10 ml 06/16/24 08:24 06/16/24 08:25 Sodium Chloride 0.9% 10ml Syr (Rad Only) IV 06/16/24 08:25 10 ml ONCE ONE Administration ORDERS Category Date Time Status CT abdomen pelvis w con Stat Cat Scan 06/16/24 07:[address] angio chest PE protocol Stat Cat Scan 06/16/24 07:40 Completed POCUS Point of Care (ER Only) Stat Exams 06/16/24 11:12 Completed Complete Blood Count Auto Diff Stat Lab 06/16/24 07:44 Completed Comprehensive Metabolic Panel Stat Lab 06/16/24 07:44 Completed HIV Combo Stat Lab 06/16/24 07:44 Completed Hepatitis C Ab Qual. W/ RFX Stat Lab 06/16/24 07:44 Completed Lactic Acid Stat Lab 06/16/24 07:44 Completed Magnesium Stat Lab 06/16/24 07:44 Completed PT INR [Prothrombin Time INR] Stat Lab 06/16/24 07:44 Completed PTT [Activated Partial Thrombo Time] Stat Lab 06/16/24 07:44 Completed T4 (Thyroxine) Stat Lab 06/16/24 07:44 Completed TSH [Thyroid Stimulating Hormone] Stat Lab 06/16/24 07:44 Completed Troponin I Stat Lab 06/16/24 07:44 Completed Urinalysis and Microscopic Stat Lab 06/16/24 08:20 Completed Blood Culture Stat Micro 06/16/24 07:56 Received Venous Blood Gas Stat RT 06/16/24 07:57 Ordered HEART Score History (anamnesis): Slightly suspicious ECG: Non-specific disturbance Age: >65 years Risk factors: 1-2 risk factors Troponin: </= normal limit HEART Score: 4 Medical Decision Narrative: 69-year-old male presenting with fever, lightheadedness, palpitations, abdominal pain. He states that he had right hemicolectomy with associated appendectomy and primary anastomosis on 06/02. Went to follow-up with surgeon, Dr. Delcid, yesterday 06/15. Received Toradol injection because he was having moderate to severe pain. Right after the Toradol wore off, he spiked a fever, had worsening abdominal pain, again feeling lightheaded. Worsening throughout today. Came in for further evaluation. No vomiting, but associated nausea. He does state the temperature went up to 102 max, took Toradol and acetaminophen about an hour prior to this visit. Last bowel movement was yesterday and was normal for him, no straining, soft, nonbloody. No chest pain, cough, but is having mild shortness of breath. History obtained the patient and significant other. On arrival, tachycardic, diaphoretic, but pink, perfusing, well-appearing speaking in full sentences. Lungs are clear, cardiac exam with no murmurs gallops or rubs. No lower extremity edema. Abdominal exam with mild tenderness on the right hemiabdomen, but no evidence of rebound, rigidity, guarding, peritonitis. Incision is clean, dry, intact, no evidence of drainage with Steri-Strips overlying. Alert and oriented, neuro intact. Differential includes anastomosis failure, intra-abdominal sepsis, intra-abdominal abscess, cholecystitis, pneumonia, PE, urinary tract infection, bacteremia, among others Patient placed on continuous cardiac monitoring and continuous pulse ox with initial blood pressure 179/96, heart rate 152, saturation 97% on room air. Independent interpretation of EKG shows sinus tachycardia with ventricular rate 150, NC 118 ms, QRS 82, QTc 243. Normal axis, no obvious acute ischemic change. Patient was given LR sepsis fluid bolus for symptomatic management and correction of underlying abnormalities. Pain meds considered, patient declining at this time. Workup independently interpreted and significant for mild leukocytosis 11.6 with relative monocyte elevation nearly 16% as well as elevated neutrophils. Coags are normal. pH 7.4/CO2 low at 29/bicarb low at 19 with normal lactate consistent with metabolic acidosis with respiratory compensation. Mild hyponatremia and hypokalemia. Troponin negative. On independent interpretation of imaging, free fluid, likely inflammatory in the abdomen. No other acute abnormalities. See radiology read for full review of final results. Reevaluation, patient feeling a little better, fluids have yet to run totally in. On reevaluation, results were relayed to patient. No longer tachycardic with heart rate in the 80s, but mildly tachypneic around 30 breaths/min. Normotensive. Stating he feels much better after fluids and antibiotics. Tissue perfusion reassessment performed within 3 hours, patient mentating, following commands, good capillary refill and hemodynamically stable. Hospital medicine was consulted and case was discussed at length, hoping to admit for observation, clear blood cultures as patient was very clinically ill-appearing on arrival and recently postop. Recommended calling surgeon prior to admission for recommendations. Spoke to surgery, they recommended admission and they will see patient inpatient. Given patient presentation, workup, history, this most likely represents intra-abdominal sepsis versus severe dehydration in the setting of recent bowel surgery. Computer Information Systems Professor disclaimer Much of this encounter note is an electronic rehab consultant spoken language to printed text. Electronic rehab consultant of the spoken language may permit errors. Although I have reviewed the note, some errors may still exist. Procedures Limited Ultrasound Indication:: Limited RUQ ultrasound Indication: Abdominal pain, distended gallbladder on CT Identified structures: -Gallbladder -Gallbladder wall -Common bile duct -Liver Findings: Sonographic Shearer sign: Absent Gallstones: Absent Sludge: Absent Pericholecystic fluid: Present, but also in the presence of ascites Maximal GB wall thickness (mm) (normal is </= 3mm): Normal Common bile duct width (mm) (normal is </= 6mm): Normal Gallbladder width (cm) (normal is < 4cm): Normal Gallbladder length (cm) (normal is < 10cm): Normal Impression: Normal gallbladder. Trace pericholecystic fluid, however inflammatory abdominal free fluid also present, likely the cause Images were saved to permanent archive The study was technically adequate CPT 43683-10 This study was performed by me, and I personally interpreted all images/videos. Based on my clinical judgement, these images were adequate and did not necessitate further imaging. Critical Care Critical Care Time Critical Care Time: Yes (ID cardiac) Attestation: On 06/16/24, the high probability of a clinically significant, sudden or life threatening deterioration of the following system(s) required my full and direct attention, intervention and personal management. The time I documented below is in addition to time spent performing reported procedures but includes the following listed in this critical care notation. Total Time Total Critical Care Time: 35
[2024-06-16 08:33] LABS: Appearance,Urine CLEAR (Clear); Blood, Urine TRACE-I (Negative); Color,Urine YELLOW (Yellow); Glucose,Urine (UA) 3+ (Negative); Ketones,Urine 3+ (Negative); Leukocyte Esterase,Urine Negative (Negative); Nitrate,Urine Negative (Negative); Protein,Urine 1+ (Negative); Urobilinogen,Urine 0.2 EU/dl (0.2)
[2024-06-16 08:35] LABS: Thyroid Stimulating Hormone 1.33 uIU/mL (0.465-4.68)
[2024-06-16 08:41] LABS: Bilirubin,Urine 1+ (Negative)
[2024-06-16] MEDS: LACTATED RINGERS 1000ML 1,000 ML 999 ML IV (08:45)
[2024-06-16 08:49] LABS: WBC,Urine Occasional #/hpf (0-3)
[2024-06-16 08:50] LABS: Bacteria,Urine Trace /lpf
[2024-06-16 09:07] LABS: HIV Combo NEGATIVE (Negative)
[2024-06-16 09:14] LABS: Hepatitis C Ab Qual. W/ RFX NEGATIVE (Negative)
[2024-06-16] MEDS: METRONIDAZ/SOD CHL 500 MG/100 ML PIGGYBACK 100 MG IV (09:54)
[2024-06-16] MEDS: LEVOFLOXACIN/D5W 750 MG/150 ML 750 MG/150 ML PIGGYBACK 100 MG IV (10:25)
--- NOTE | 2024-06-16 10:52 | PC.NURSE ---
BJ from surgery returned the pt and states she is going to reach out to the surgeon functional consultant.
--- NOTE | 2024-06-16 12:36 | PC.NURSE ---
I notified of the need for a bed to admit.
--- NOTE | 2024-06-16 12:54 | P.HP_ITS ---
History of Present Illness *Admission Date: 06/16/24 *Reason for visit:: abdominal pain *History of present illness: Mr. Wynn is a 69-year-old male who had an abnormal polyp leading to hemicolectomy of right colon approximately 2 weeks ago. History of hyperlipidemia, depression, diabetes, hypertension and GERD. Presented to surgery clinic yesterday for follow-up and was having some abdominal pain. Received Toradol in the office with improvement in pain but then last night developed tachycardia, pain, temperature 102. Presented to the ER due to symptoms including fever. Denies matthew nausea or vomiting. States his pain at its worst is a 5 out of 10. Workup in the ER today with marginal elevation of white count at 11.6, hemoglobin 11.1. Patient afebrile on presentation. Imaging obtained of his abdomen showing free fluid in lower abdomen, concern for potential infection versus normal postsurgical findings. Sodium normal at 135, potassium 3.4. Kidney function normal with BUN 9, creatinine 1. Maldonado consulted for admission and further management of fever and worsening abdominal symptoms concerning for possible acute abdomen. On arrival to the floor, patient is feeling better. Denies any fever or chest pain. Does state he has been more short of breath lately. BNP added to his labs from the ER, found to be elevated at 2200. In light of his ascites/abdominal fluid and elevated BNP, would benefit from diuresis. Surgery consulted to evaluate the patient in the morning. Hemodynamically stable. Alert and oriented x 4. at bedside. [facility] Disclaimer: The information contained in this section may have been updated after the patient was seen, as this information can be updated by other users. 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 (Updated 06/16/24 @ 16:49 by Brian Perez MD) Positive colorectal cancer screening using Cologuard test Mass of left upper extremity Hx of cataract Diabetes mellitus Dysphagia Anxiety and depression History of COVID-19 History of gastroesophageal reflux (GERD) Allergies Cataract Hyperlipidemia Hypertension Surgical History History of colon resection History of sinus surgery History of knee surgery History of esophagogastroduodenoscopy (EGD) History of local excision of skin lesion History of colonoscopy Family History Other Family history of hypertension Family history of myocardial infarction Lung cancer Social History Smoking Status: Never smoker alcohol intake: never substance use type: denies use current occupational status: retired Travel in the last 8 weeks?: None household members: spouse housing: house 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 occupational exposures/hazards: No caffeine: Yes Have you lived/traveled outside US in past 30 days?: No Contact w/someone who lives/traveled outside US past 30 days?: No Exposure to someone with infectious disease in past 14 days?: No Do you have a fever (greater than 100.4 F or 38 C)?: Yes Have you tested positive for COVID-19?: No Exposed to someone with COVID-19 in past 14 days?: No Do you have a sore throat?: No Do you have a cough?: No Do you have any weakness?: No Do you have any diarrhea?: No Are you experiencing any unusual bleeding?: No Do you have any muscle aches/pain?: No Do you have any abdominal pain?: No Are you experiencing loss of taste or smell?: No Other 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 Have you received the Flu Vaccine for this season: No Have you received the Pneumonia Vaccine: Yes Review of Systems Review of Systems Review of systems (narrative): 14 point review of systems performed, pertinent positives and negatives as per HPI Meds Home Medications and Allergies Home Medications ?Medication ?Instructions ?Recorded ?Confirmed ?Type trazodone 50 mg tablet 50 mg PO HS 06/23/18 06/16/24 History losartan 100 mg tablet 100 mg PO DAILY 30 days #30 tabs 11/18/19 06/16/24 Rx bupropion HCl 150 mg 24 hr tablet, 450 mg PO DAILY 02/25/23 06/16/24 History extended release (Wellbutrin XL) atorvastatin 20 mg tablet 20 mg PO HS 03/02/23 06/16/24 History dapagliflozin propanediol 10 mg 10 mg PO DAILY 08/03/23 06/16/24 History tablet (Farxiga) pantoprazole 20 mg tablet,delayed 20 mg PO DAILY #30 tabs 08/03/23 06/16/24 Rx release ketorolac 10 mg tablet 10 mg PO Q8HP PRN Mild Pain (Scale 06/16/24 06/16/24 History Score 1-4) New Prescriptions to Start Prescriptions: Allergies Allergy/AdvReac Type Severity Reaction Status Date / Time amoxicillin (From Augmentin) Allergy Mild Rash Verified 06/15/24 14:00 clavulanic acid (From Allergy Mild Rash Verified 06/15/24 14:00 Augmentin) Penicillins Allergy hives Verified 06/15/24 14:00 Sulfa (Sulfonamide Allergy Hives Verified 06/15/24 14:00 Antibiotics) Tetracyclines AdvReac Mild CARDENAS Verified 06/15/24 14:00 Exam Data for Last 24 hours Vital signs and Labs for Last 24 Hours: Temp Pulse Resp BP Pulse Ox O2 Del Method 99.1 F 82 30 H 169/71 H 96 Room Air 06/16/24 10:51 06/16/24 11:30 06/16/24 12:31 06/16/24 12:31 06/16/24 11:30 06/16/24 11:30 Laboratory Results - last 24 hr 06/16/24 07:41: VBG pH 7.44 H, VBG pCO2 29.5 L, VBG pO2 97.0 H, VBG HCO3 19.4 L, VBG Total CO2 20.3 L, VBG O2 Saturation 97.9 H, VBG Base Excess -4.9 L, VBG Lactic Acid 1.4 06/16/24 07:44: WBC 11.6 H, RBC 3.60 L, Hgb 11.1 L, Hct 33.8 L, MCV 93.9, MCH 30.8, MCHC 32.8, RDW 14.4, Plt Count 495 H, MPV 10.1, Neut % (Auto) 76.3, Lymph % (Auto) 3.8 L, [place] % (Auto) 15.8 H, Eos % (Auto) 2.2, Baso % (Auto) 0.4, Neut # (Auto) 8.8 H, Lymph # (Auto) 0.4 L, [place] # (Auto) 1.8 H, Eos # (Auto) 0.3, Baso # (Auto) 0.1, Total Counted 100, Neutrophils % (Manual) 85 H, Lymphocytes % (Manual) 9 L, Monocytes % (Manual) 5, Eosinophils % (Manual) 1, Platelet Estimate Slight increase, RBC Morphology Normal, PT 11.8, INR 1.06, APTT 30.6, Sodium 135 L, Potassium 3.4 L, Chloride 104, Carbon Dioxide 20 L, Anion Gap 14.4, BUN 9, Creatinine 1.00, Estimated Creat Clear 94, Estimated GFR 75, Est GFR ( Amer) 90, Glucose 107 H, Lactate 0.9, Calcium 8.6, Magnesium 1.6, Total Bilirubin 1.0, AST 31, ALT 23, Alkaline Phosphatase 87, Troponin I 0.02, Total Protein 6.4, Albumin 3.3 L, Globulin 3.1, Albumin/Globulin Ratio 1.1, TSH 1.33, Thyroxine (T4) 9.6, HCV Ab MELIZA w/Rflx PCR Qn Negative, HIV Ag/Ab Combo Qual Negative 06/16/24 08:20: Urine Color Yellow, Urine Appearance Clear, Urine pH 6.0, Ur Specific [place] 1.020, Urine Protein 1+ A, Urine Glucose (UA) 3+, Urine Ketones 3+, Urine Blood Trace-i, Urine Nitrate Negative, Urine Bilirubin 1+ A, Urine Urobilinogen 0.2, Ur Leukocyte Esterase Negative, Urine RBC 3-5, Urine WBC Occasional, Ur Squamous Epith Cells None, Urine Bacteria Trace I & O for Last 24 hours: Intake & Output 06/13/24 06/14/24 06/15/24 06/16/24 23:59 23:59 23:59 23:59 Weight 92.986 kg Constitutional Constitutional: no acute distress and cooperative *Routine HEENT Exam Head: Present normocephalic Eye: Present EOMI ENT: Present mucous membranes moist *Routine Neck Exam Neck: Present full ROM *Routine Respiratory Exam Respiratory: Absent respiratory distress, rhonchi, stridor, wheezes or crackles *Routine Cardiovascular Exam Cardiovascular: Present RRR; Absent tachycardia *Routine Abdominal Exam Abdominal: Present soft, normoactive bowel sounds, tenderness (Predominantly right lower abdomen, no significant tenderness along scar) and surgical scars Comments: Midline incision scar healing with no erythema or drainage. *Routine Rectal Exam Rectal:: deferred *Routine Genitalia Exam Genitalia:: deferred *Routine Extremities Exam Extremities: Present edema (1+ to knee) and full ROM *Routine Skin Exam Skin: Absent erythema *Routine Neurological Exam Neurological: Present alert, oriented X3 and moving all extremities; Absent altered mental status Assessment and Plan *Assessment and plan (1) SIRS (systemic inflammatory response syndrome): Status: Acute Category: Medical Code(s): R65.10 - Systemic inflammatory response syndrome (SIRS) of non-infectious origin without acute organ dysfunction (2) GERD (gastroesophageal reflux disease): Status: Acute Qualifiers: Esophagitis presence: esophagitis presence not specified Qualified Code(s): K21.9 - Gastro-esophageal reflux disease without esophagitis Category: Medical Code(s): K21.9 - Gastro-esophageal reflux disease without esophagitis (3) Hypertension: Status: Acute Qualifiers: Hypertension type: unspecified Qualified Code(s): I10 - Essential (primary) hypertension Category: Medical Code(s): I10 - Essential (primary) hypertension (4) Diabetes mellitus: Status: Acute Category: Medical Code(s): E11.9 - Type 2 diabetes mellitus without complications Plan Recent hemicolectomy Abdominal pain - Abdomen appears to be healing appropriately. Fluid per my review on CT most likely consistent with postoperative intra-abdominal fluid. Has been having bowel movements and passing gas. Low concern for leakage. Will consult surgery to evaluate in the morning. - Received Levaquin 750 mg once in the ED, will continue Flagyl 500 mg 3 times a day. Reevaluate for need for antibiotics in the morning. - White count marginally elevated 11.6, low concern for infection. - Wound healthy and clean. -Toradol 30 mg IV every 6 hours as needed for pain Labs normal sodium 135, potassium 3.4, kidney function with BUN 9, creatinine 1. Repeat CBC, CMP, magnesium ordered for the morning. Elevated BNP concerning for CHF component. Will diurese once with Lasix 40 mg IV. Does have edema on exam. Echo ordered and pending for the morning. Will evaluate for component of CHF. Continue Wellbutrin Forton 50 mg daily for mood Diabetes: A1c pending. Continue dapagliflozin 10 mg daily, initiate sliding scale insulin with fingersticks ACHS. Continue Lipitor 20 mg nightly for hyperlipidemia Continue Romero is all daily for GERD Continue trazodone 50 mg nightly for sleep Full code Patient mobile, will administer Lovenox 40 mg once Diabetic diet, NPO at midnight
--- NOTE | 2024-06-16 13:00 | HMH.PHAINT1 ---
Pharmacy Intervention Comments: MEDICATION RECONCILIATION COMPLETED ON PATIENT USING EXTERNAL FILL HISTORY FROM PHARMACY. -SAURABH RAZO, CHARLOTTED
[2024-06-16] MEDS: KETOROLAC 30MG/ML VIAL 30 MG IV ×2 (14:52→21:42)
[2024-06-16 15:21] LABS: NT Pro Brain Natriuretic Pep. 2250 pg/mL (0-125)
[2024-06-16 16:36] LABS: POC Glucose,Bedside 99 (70-110)
[2024-06-16] MEDS: FUROSEMIDE 40MG/4ML VIAL 40 MG IV (17:44)
[2024-06-16] MEDS: ENOXAPARIN 40MG/0.4ML SYRINGE 40 MG SUBCUT (17:44)
--- NOTE | 2024-06-16 18:42 | PC.NURSE ---
New admit this shift. C/o RUQ pain that he describes as nagging 06/25. Medicated w/ IV toradol per APR w/ favorable results. No further needs @ this time. Tolerating a diabetic diet w/o issues. Call jose w/in reach. POC ongoing.
[2024-06-16 20:03] LABS: POC Glucose,Bedside 105 (70-110)
[2024-06-16] MEDS: metroNIDAZOLE 500 MG TABLET PO (20:13)
[2024-06-16] MEDS: PANTOPRAZOLE 40MG TABLET 40 MG PO (20:13)
[2024-06-16] MEDS: ATORVASTATIN 20MG TABLET 20 MG PO (20:13)
[2024-06-16] MEDS: TRAZODONE 50MG TABLET 50 MG PO (20:14)
[2024-06-17] VITALS: BP 142/84; PULSE 97; RESP 24; TEMP 37.1; O2SAT 94
--- NOTE | 2024-06-17 03:28 | PC.NURSE ---
Pt doing well this shift. AOx4. Reported small RUQ pain earlier this shift, but has not reported pain since. Pt has been NPO since 0000 for surgery consult with Dr. Delcid. Resting in bed with eyes closed at this time. Respirations are even and unlabored. Bed is low, locked, and call light is in reach.
[2024-06-17 04:00] VITALS: BP 109/69; PULSE 36; RESP 20; TEMP 37; O2SAT 95; BMI 29.7
[2024-06-17 05:24] LABS: POC Glucose,Bedside 126 (70-110)
--- NOTE | 2024-06-17 07:00 | CA_ITS ---
APPROVED REPORT EXAM: Comprehensive 2D, Doppler, and color-flow Echocardiogram Straight Cutter: Gisele Rogers RDCS Ht: 5 ft 11 in Wt: 206lbs BSA: 2.13 BP: 169/71 mmHg Indications: TACHYCARDIA,HTN,HLP M-Mode Dimensions RVDd 2.60 cm (0.9-2.6) LA Diam 4.39 cm (1.9-4.0) LVDd 5.15 cm (3.5-5.7) LVDs 3.28 cm (3.5-5.7) IVSd 1.19 cm (0.6-1.1) PWd 1.24 cm (0.6-1.1) EF (Teich) 65.60% FS 36.30% EDV (Teich) 126.60 mL ESV (Teich) 43.50 mL Tricuspid Valve TR P. Velocity 325.00 cm/s RAP Estimate 10.00 mmHg RVSP 52.10 mmHg Left Ventricle The left ventricle is normal size. The left ventricular systolic function is normal. The left ventricular ejection fraction is within the normal range. There is increased LV wall thickness. There is normal LV segmental wall motion. Diastolic function is indeterminate. LVEF is 55%. Right Ventricle Right ventricle is mildly to moderately dilated. Right ventricle is mildly hypokinetic. Atria The left atrium is moderately dilated. Right atrium is moderately dilated. There is no Doppler evidence of interatrial shunt. Aortic Valve The aortic valve is mildly thickened. There is no aortic valvular stenosis. Mild aortic regurgitation. Mitral Valve The mitral valve leaflets are mildly thickened. Trace mitral regurgitation. No evidence of mitral valve stenosis. Tricuspid Valve Tricuspid valve is grossly normal in structure and function. Mild tricuspid regurgitation. RVSP is 30-35 mmHg. Pulmonic Valve The pulmonary valve is normal in structure. Trace pulmonic regurgitation. Great Vessels The aortic root is normal in size. IVC is normal in size and collapses >50% with inspiration. Pericardium There is no pericardial effusion. Other Information Study Quality: Fair Conclusion Normal LV systolic function. Mild to moderate RV dilation with mild reduction in RV function. Biatrial dilation. Mild AI, mild TR. Electronically signed by : Aida Tan MD 06/17/2024 10:37:11
[2024-06-17 07:05] LABS: Basophils # 0.1 K/mm3 (0-0.2); Basophils % 0.7 % (0.1-2.0); Eosinophils # 0.5 Kmm3 (0.0-0.4); Eosinophils % 4.5 % (0.1-12.0); Hematocrit 29.6 % (42.0-52.0); Lymphocytes # 0.7 K/mm3 (0.7-4.5); Lymphocytes % 6.9 % (10-50); Mean Corpuscular HGB Conc 32.8 g/dL (31.8-35.4); Mean Corpuscular Hemoglobin 30.6 pg (27.0-31.2); Mean Corpuscular Volume 93.4 fl (80-94); Monocytes # 1.7 K/mm3 (0.1-1.0); Monocytes % 17.4 % (1.7-9.3); Neutrophils # 6.8 K/mm3 (1.8-7.8); Neutrophils % 67.9 % (37.0-80.0); Nucleated Red Blood Cells # 0.02 10^3/uL; Nucleated Red Blood Cells % 0.2 %; Platelet Count 487 K/mm3 (142-424); Red Blood Count 3.17 M/mm3 (4.60-6.20); Red Cell Distribution Width 14.5 % (11.5-17.5); Red Cell Distribution Width-SD 49.1 fL
--- NOTE | 2024-06-17 07:20 | EXP.SURG.CON ---
History of Present Illness *Admission Date: 06/16/24 *Reason for visit:: Fever *History of present illness: This is a 69-year-old gentleman recently seen in the outpatient setting for follow-up status post right hemicolectomy. He had some persistent abdominal pain and subjective fever. Repeat laboratory evaluation and a CT scan was ordered. Prior to undergoing the planned CT scan the patient presented to the emergency department secondary to fevers. Please see HPI forwarded below. Currently, he states he feels much better . Forwarded from admission H&P: Mr. Wynn is a 69-year-old male who had an abnormal polyp leading to hemicolectomy of right colon approximately 2 weeks ago. History of hyperlipidemia, depression, diabetes, hypertension and GERD. Presented to surgery clinic yesterday for follow-up and was having some abdominal pain. Received Toradol in the office with improvement in pain but then last night developed tachycardia, pain, temperature 102. Presented to the ER due to symptoms including fever. Denies matthew nausea or vomiting. States his pain at its worst is a 5 out of 10. Workup in the ER today with marginal elevation of white count at 11.6, hemoglobin 11.1. Patient afebrile on presentation. Imaging obtained of his abdomen showing free fluid in lower abdomen, concern for potential infection versus normal postsurgical findings. Sodium normal at 135, potassium 3.4. Kidney function normal with BUN 9, creatinine 1. Maldonado consulted for admission and further management of fever and worsening abdominal symptoms concerning for possible acute abdomen. On arrival to the floor, patient is feeling better. Denies any fever or chest pain. Does state he has been more short of breath lately. BNP added to his labs from the ER, found to be elevated at 2200. In light of his ascites/abdominal fluid and elevated BNP, would benefit from diuresis. Surgery consulted to evaluate the patient in the morning. Hemodynamically stable. Alert and oriented x 4. at bedside. [facility] Disclaimer: The information contained in this section may have been updated after the patient was seen, as this information can be updated by other users. 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 (Updated 06/16/24 @ 16:49 by Brian Perez MD) Positive colorectal cancer screening using Cologuard test Mass of left upper extremity Hx of cataract Diabetes mellitus Dysphagia Anxiety and depression History of COVID-19 History of gastroesophageal reflux (GERD) Allergies Cataract Hyperlipidemia Hypertension Surgical History History of colon resection History of sinus surgery History of knee surgery History of esophagogastroduodenoscopy (EGD) History of local excision of skin lesion History of colonoscopy Family History Other Family history of hypertension Family history of myocardial infarction Lung cancer Social History Smoking Status: Never smoker alcohol intake: never substance use type: denies use current occupational status: retired Travel in the last 8 weeks?: None household members: spouse housing: house 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 occupational exposures/hazards: No caffeine: Yes Have you lived/traveled outside [place] in past 30 days?: No Contact w/someone who lives/traveled outside US past 30 days?: No Exposure to someone with infectious disease in past 14 days?: No Do you have a fever (greater than 100.4 F or 38 C)?: Yes Have you tested positive for COVID-19?: No Exposed to someone with COVID-19 in past 14 days?: No Do you have a sore throat?: No Do you have a cough?: No Do you have any weakness?: No Do you have any diarrhea?: No Are you experiencing any unusual bleeding?: No Do you have any muscle aches/pain?: No Do you have any abdominal pain?: No Are you experiencing loss of taste or smell?: No Meds Home Medications and Allergies Home Medications ?Medication ?Instructions ?Recorded ?Confirmed ?Type trazodone 50 mg tablet 50 mg PO HS 06/23/18 06/16/24 History losartan 100 mg tablet 100 mg PO DAILY 30 days #30 tabs 11/18/19 06/16/24 Rx bupropion HCl 150 mg 24 hr tablet, 450 mg PO DAILY 02/25/23 06/16/24 History extended release (Wellbutrin XL) atorvastatin 20 mg tablet 20 mg PO HS 03/02/23 06/16/24 History dapagliflozin propanediol 10 mg 10 mg PO DAILY 08/03/23 06/16/24 History tablet (Farxiga) pantoprazole 20 mg tablet,delayed 20 mg PO DAILY #30 tabs 08/03/23 06/16/24 Rx release ketorolac 10 mg tablet 10 mg PO Q8HP PRN Mild Pain (Scale 06/16/24 06/16/24 History Score 1-4) New Prescriptions to Start Prescriptions: Allergies Allergy/AdvReac Type Severity Reaction Status Date / Time amoxicillin (From Augmentin) Allergy Mild Rash Verified 06/15/24 14:00 clavulanic acid (From Allergy Mild Rash Verified 06/15/24 14:00 Augmentin) Penicillins Allergy hives Verified 06/15/24 14:00 Sulfa (Sulfonamide Allergy Hives Verified 06/15/24 14:00 Antibiotics) Tetracyclines AdvReac Mild CARDENAS Verified 06/15/24 14:00 Exam (Inpt) Vital signs and Labs for Last 24 Hours: Temp Pulse Resp BP Pulse Ox O2 Del Method 98.6 F 36 L 20 109/69 L 95 Room Air 06/17/24 04:00 06/17/24 04:00 06/17/24 04:00 06/17/24 04:00 06/17/24 04:00 06/17/24 06:28 Laboratory Results - last 24 hr 06/16/24 07:41: VBG pH 7.44 H, VBG pCO2 29.5 L, VBG pO2 97.0 H, VBG HCO3 19.4 L, VBG Total CO2 20.3 L, VBG O2 Saturation 97.9 H, VBG Base Excess -4.9 L, VBG Lactic Acid 1.4 06/16/24 07:44: WBC 11.6 H, RBC 3.60 L, Hgb 11.1 L, Hct 33.8 L, MCV 93.9, MCH 30.8, MCHC 32.8, RDW 14.4, Plt Count 495 H, MPV 10.1, Neut % (Auto) 76.3, Lymph % (Auto) 3.8 L, [place] % (Auto) 15.8 H, Eos % (Auto) 2.2, Baso % (Auto) 0.4, Neut # (Auto) 8.8 H, Lymph # (Auto) 0.4 L, [place] # (Auto) 1.8 H, Eos # (Auto) 0.3, Baso # (Auto) 0.1, Total Counted 100, Neutrophils % (Manual) 85 H, Lymphocytes % (Manual) 9 L, Monocytes % (Manual) 5, Eosinophils % (Manual) 1, Platelet Estimate Slight increase, RBC Morphology Normal, PT 11.8, INR 1.06, APTT 30.6, Sodium 135 L, Potassium 3.4 L, Chloride 104, Carbon Dioxide 20 L, Anion Gap 14.4, BUN 9, Creatinine 1.00, Estimated Creat Clear 94, Estimated GFR 75, Est GFR ( Amer) 90, Glucose 107 H, Lactate 0.9, Calcium 8.6, Magnesium 1.6, Total Bilirubin 1.0, AST 31, ALT 23, Alkaline Phosphatase 87, Troponin I 0.02, NT-Pro-B Natriuret Pep 2250 H, Total Protein 6.4, Albumin 3.3 L, Globulin 3.1, Albumin/Globulin Ratio 1.1, TSH 1.33, Thyroxine (T4) 9.6, HCV Ab MELIZA w/Rflx PCR Qn Negative, HIV Ag/Ab Combo Qual Negative 06/16/24 08:20: Urine Color Yellow, Urine Appearance Clear, Urine pH 6.0, Ur Specific [place] 1.020, Urine Protein 1+ A, Urine Glucose (UA) 3+, Urine Ketones 3+, Urine Blood Trace-i, Urine Nitrate Negative, Urine Bilirubin 1+ A, Urine Urobilinogen 0.2, Ur Leukocyte Esterase Negative, Urine RBC 3-5, Urine WBC Occasional, Ur Squamous Epith Cells None, Urine Bacteria Trace 06/16/24 16:19: POC Glucose 99 06/16/24 19:56: POC Glucose 105 06/17/24 05:17: POC Glucose 126 H I & O for Labs for Last 24 Hours: Intake & Output 06/14/24 06/15/24 06/16/24 06/17/24 11:59 11:59 11:59 11:59 Intake Total 480 / 480 Output Total 0 / 0 Balance 480 / 480 Weight 205 lb 208 lb Constitutional: no acute distress Respiratory: Absent respiratory distress Cardiac: Absent Tachycardia GI: Present soft and tenderness (Moderate tenderness in the mid abdomen and right upper quadrant (unchanged)) Results Labs 06/16/24 07:44 06/16/24 07:44 Labs: Laboratory Results - last 24 hr 06/16/24 07:41: VBG pH 7.44 H, VBG pCO2 29.5 L, VBG pO2 97.0 H, VBG HCO3 19.4 L, VBG Total CO2 20.3 L, VBG O2 Saturation 97.9 H, VBG Base Excess -4.9 L, VBG Lactic Acid 1.4 06/16/24 07:44: WBC 11.6 H, RBC 3.60 L, Hgb 11.1 L, Hct 33.8 L, MCV 93.9, MCH 30.8, MCHC 32.8, RDW 14.4, Plt Count 495 H, MPV 10.1, Neut % (Auto) 76.3, Lymph % (Auto) 3.8 L, [place] % (Auto) 15.8 H, Eos % (Auto) 2.2, Baso % (Auto) 0.4, Neut # (Auto) 8.8 H, Lymph # (Auto) 0.4 L, [place] # (Auto) 1.8 H, Eos # (Auto) 0.3, Baso # (Auto) 0.1, Total Counted 100, Neutrophils % (Manual) 85 H, Lymphocytes % (Manual) 9 L, Monocytes % (Manual) 5, Eosinophils % (Manual) 1, Platelet Estimate Slight increase, RBC Morphology Normal, PT 11.8, INR 1.06, APTT 30.6, Sodium 135 L, Potassium 3.4 L, Chloride 104, Carbon Dioxide 20 L, Anion Gap 14.4, BUN 9, Creatinine 1.00, Estimated Creat Clear 94, Estimated GFR 75, Est GFR ( Amer) 90, Glucose 107 H, Lactate 0.9, Calcium 8.6, Magnesium 1.6, Total Bilirubin 1.0, AST 31, ALT 23, Alkaline Phosphatase 87, Troponin I 0.02, NT-Pro-B Natriuret Pep 2250 H, Total Protein 6.4, Albumin 3.3 L, Globulin 3.1, Albumin/Globulin Ratio 1.1, TSH 1.33, Thyroxine (T4) 9.6, HCV Ab MELIZA w/Rflx PCR Qn Negative, HIV Ag/Ab Combo Qual Negative 06/16/24 08:20: Urine Color Yellow, Urine Appearance Clear, Urine pH 6.0, Ur Specific [place] 1.020, Urine Protein 1+ A, Urine Glucose (UA) 3+, Urine Ketones 3+, Urine Blood Trace-i, Urine Nitrate Negative, Urine Bilirubin 1+ A, Urine Urobilinogen 0.2, Ur Leukocyte Esterase Negative, Urine RBC 3-5, Urine WBC Occasional, Ur Squamous Epith Cells None, Urine Bacteria Trace 06/16/24 16:19: POC Glucose 99 06/16/24 19:56: POC Glucose 105 06/17/24 05:17: POC Glucose 126 H Assessment and Plan *Assessment and plan (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 Ongoing right upper quadrant pain noted. No obvious sign of postoperative complication per CT scan. Some intra-abdominal/pelvic fluid noted. Reasonable complete course of antibiotics secondary to recent fever Okay from surgical standpoint for discharge home with close outpatient follow-up
[2024-06-17 07:25] LABS: MANUAL DIFFERENTIAL MANUAL DIFFERENTIAL (MANUAL DIFF)
[2024-06-17 07:36] LABS: Alanine Aminotransferase 18 U/L (12-78); Albumin Level 2.8 g/dl (3.5-5.0); Alkaline Phosphatase 89 U/L (38-126); Anion Gap 7.3 mEq/L (5-15); Aspartate Amino Transferase 27 U/L (17-59); Bilirubin,Total 0.6 mg/dl (0.2-1.3); Blood Urea Nitrogen 13 mg/dl (9-20); Calcium 8.4 mg/dl (8.4-10.2); Carbon Dioxide 27 mmol/L (22.0-30.0); Chloride 105 mmol/L (98-107); Creatinine Clearance Estimated 96 mL/min (50-200); Estimated Glomerular Filt Rate 84 ml/min (>60); GFR (African American) 102 ML/MIN (>60); Globulin 2.8 g/dL (1.3-3.2); Glucose 125 mg/dl (74-100); Magnesium 2.1 mg/dl (1.6-2.3); Potassium 3.3 mmoL/L (3.5-5.1); Sodium 136 mmol/L (136-145); Total Protein,Serum 5.6 g/dl (6.3-8.2)
[2024-06-17 07:38] LABS: Hemoglobin 9.6 g/dL (14.1-18.0)
[2024-06-17 07:57] VITALS: BP 132/63; PULSE 77; RESP 17; TEMP 37.6; O2SAT 93
--- NOTE | 2024-06-17 08:21 | EXP.DC.SUM ---
General Admission date:: 06/16/24 Discharge date: 06/17/24 HPI HPI HPI: This is a 69-year-old gentleman recently seen in the outpatient setting for follow-up status post right hemicolectomy. He had some persistent abdominal pain and subjective fever. Repeat laboratory evaluation and a CT scan was ordered. Prior to undergoing the planned CT scan the patient presented to the emergency department secondary to fevers. Please see HPI forwarded below. Currently, he states he feels much better . Forwarded from admission H&P: Mr. Wynn is a 69-year-old male who had an abnormal polyp leading to hemicolectomy of right colon approximately 2 weeks ago. History of hyperlipidemia, depression, diabetes, hypertension and GERD. Presented to surgery clinic yesterday for follow-up and was having some abdominal pain. Received Toradol in the office with improvement in pain but then last night developed tachycardia, pain, temperature 102. Presented to the ER due to symptoms including fever. Denies matthew nausea or vomiting. States his pain at its worst is a 5 out of 10. Workup in the ER today with marginal elevation of white count at 11.6, hemoglobin 11.1. Patient afebrile on presentation. Imaging obtained of his abdomen showing free fluid in lower abdomen, concern for potential infection versus normal postsurgical findings. Sodium normal at 135, potassium 3.4. Kidney function normal with BUN 9, creatinine 1. Maldonado consulted for admission and further management of fever and worsening abdominal symptoms concerning for possible acute abdomen. On arrival to the floor, patient is feeling better. Denies any fever or chest pain. Does state he has been more short of breath lately. BNP added to his labs from the ER, found to be elevated at 2200. In light of his ascites/abdominal fluid and elevated BNP, would benefit from diuresis. Surgery consulted to evaluate the patient in the morning. Hemodynamically stable. Alert and oriented x 4. at bedside. Hospital Course Hospital Course Hospital Course: Mr. Paige is a 69-year-old male who had an abnormal polyp leading to hemicolectomy of right colon approximately 2 weeks ago. History of hyperlipidemia, depression, diabetes, hypertension and GERD. Presented to surgery clinic yesterday for follow-up and was having some abdominal pain. Received Toradol in the office with improvement in pain but then last night developed tachycardia, pain, temperature 102. Presented to the ER due to symptoms including fever. Denies matthew nausea or vomiting. States his pain at its worst is a 5 out of 10. Workup in the ER today with marginal elevation of white count at 11.6, hemoglobin 11.1. Patient afebrile on presentation. Imaging obtained of his abdomen showing free fluid in lower abdomen, concern for potential infection versus normal postsurgical findings. Sodium normal at 135, potassium 3.4. Kidney function normal with BUN 9, creatinine 1. Maldonado consulted for admission and further management of fever and worsening abdominal symptoms concerning for possible acute abdomen. Did well overnight. Pain minimal. Evaluated by surgery. No plan for intervention. Anticipated findings on imaging consistent with postoperative fluid. Will treat with empiric course of antibiotics out of potential concern for possible early infection. Stable discharge home. No fevers during admission. Problems addressed as follows: Recent hemicolectomy Abdominal pain - Abdomen appears to be healing appropriately. Fluid per my review on CT most likely consistent with postoperative intra-abdominal fluid. Has been having bowel movements and passing gas. Low concern for leakage. Surgery evaluated, recommend short empiric course of antibiotics. White count back to normal at 10 on morning of discharge. Stable on room air. Tolerating p.o. intake. Wound healthy and clean. Treated with Toradol during admission. No further fevers. Stable to discharge with close outpatient follow-up. Elevated BNP 2250 concerning for CHF component. Responded to diuretics. Has been having some shortness of breath for a month or more per his report. Echo obtained did not show reduced ejection fraction but did have some elevated RVSP consistent with HFpEF. Continue daily diuretic. Recommended discussion with PCP to further evaluate needs for outpatient management versus referral to cardiology. Clinically stable on room air throughout admission. Continue Wellbutrin Forton 50 mg daily for mood Diabetes: A1c 5.3. Continue dapagliflozin 10 mg daily. Well-controlled. Continue Lipitor 20 mg nightly for hyperlipidemia Continue Romero is all daily for GERD Continue trazodone 50 mg nightly for sleep Total time spent on discharge 32 minutes in counseling, documentation, chart review, and direct care with patient. Exam Data for Last 24 hours Vital signs and Labs for Last 24 Hours: Temp Pulse Resp BP Pulse Ox O2 Del Method 99.7 F H 77 17 132/63 93 L Room Air 06/17/24 07:57 06/17/24 07:57 06/17/24 07:57 06/17/24 07:57 06/17/24 07:57 06/17/24 07:57 Laboratory Results - last 24 hr 06/16/24 07:44: Total Counted 100, Neutrophils % (Manual) 85 H, Lymphocytes % (Manual) 9 L, Monocytes % (Manual) 5, Eosinophils % (Manual) 1, Platelet Estimate Slight increase, RBC Morphology Normal, NT-Pro-B Natriuret Pep 2250 H, TSH 1.33, Thyroxine (T4) 9.6, HCV Ab MELIZA w/Rflx PCR Qn Negative, HIV Ag/Ab Combo Qual Negative 06/16/24 08:20: Urine Color Yellow, Urine Appearance Clear, Urine pH 6.0, Ur Specific [place] 1.020, Urine Protein 1+ A, Urine Glucose (UA) 3+, Urine Ketones 3+, Urine Blood Trace-i, Urine Nitrate Negative, Urine Bilirubin 1+ A, Urine Urobilinogen 0.2, Ur Leukocyte Esterase Negative, Urine RBC 3-5, Urine WBC Occasional, Ur Squamous Epith Cells None, Urine Bacteria Trace 06/16/24 16:19: POC Glucose 99 06/16/24 19:56: POC Glucose 105 06/17/24 05:17: POC Glucose 126 H 06/17/24 06:28: WBC 10.0, RBC 3.17 L, Hgb 9.6 L D, Hct 29.6 L, MCV 93.4, MCH 30.6, MCHC 32.8, RDW 14.5, Plt Count 487 H, MPV 10.0, Neut % (Auto) 67.9, Lymph % (Auto) 6.9 L, Mckean % (Auto) 17.4 H, Eos % (Auto) 4.5, Baso % (Auto) 0.7, Neut # (Auto) 6.8, Lymph # (Auto) 0.7, Mckean # (Auto) 1.7 H, Eos # (Auto) 0.5 H, Baso # (Auto) 0.1, Sodium 136, Potassium 3.3 L, Chloride 105, Carbon Dioxide 27, Anion Gap 7.3, BUN 13 D, Creatinine 0.90, Estimated Creat Clear 96, Estimated GFR 84, Est GFR ( Amer) 102, Glucose 125 H, Calcium 8.4, Magnesium 2.1 D, Total Bilirubin 0.6, AST 27, ALT 18, Alkaline Phosphatase 89, Total Protein 5.6 L, Albumin 2.8 L D, Globulin 2.8, Albumin/Globulin Ratio 1.0 L I & O for Last 24 hours: Intake & Output 06/14/24 06/15/24 06/16/24 06/17/24 23:59 23:59 23:59 23:59 Intake Total 480 / 480 Output Total 0 / 0 Balance 480 / 480 Weight 93.497 kg 94.347 kg Microbiology Reports for the Last 24 Hours: Microbiology 06/16/24 07:56 Blood Blood Culture - Preliminary NO GROWTH AFTER 24 HOURS 06/16/24 07:44 Blood Blood Culture - Preliminary NO GROWTH AFTER 24 HOURS Constitutional Constitutional: no acute distress, chronically ill appearing and cooperative *Routine HEENT Exam Head: Present normocephalic Eye: Present EOMI and PERRL ENT: Present mucous membranes moist *Routine Neck Exam Neck: Present supple; Absent lymphadenopathy *Routine Respiratory Exam Respiratory: Present CTA bilaterally *Routine Cardiovascular Exam Cardiovascular: Present RRR *Routine Abdominal Exam Abdominal: Present soft, normoactive bowel sounds and tenderness (mild in right lower quadrant) Comments: normal bowel sounds *Routine Rectal Exam Patient deferred: visual exam *Routine Exam Patient deferred: penile exam *Routine Extremities Exam Extremities: Absent cyanosis, clubbing or edema *Routine Skin Exam Skin: Present warm; Absent rash *Routine Neurological Exam Neurological: Present alert and oriented X3 Results Data Completed and Pending Labs on day of discharge: Labs from last 24 hours 06/17/24 06/17/24 06/16/24 06:28 05:17 19:56 WBC 10.0 RBC 3.17 L Hgb 9.6 L D Hct 29.6 L MCV 93.4 MCH 30.6 MCHC 32.8 RDW 14.5 Plt Count 487 H MPV 10.0 Neut % (Auto) 67.9 Lymph % (Auto) 6.9 L Mckean % (Auto) 17.4 H Eos % (Auto) 4.5 Baso % (Auto) 0.7 Neut # (Auto) 6.8 Lymph # (Auto) 0.7 Mckean # (Auto) 1.7 H Eos # (Auto) 0.5 H Baso # (Auto) 0.1 Total Counted Pending Neutrophils % (Manual) Lymphocytes % (Manual) Monocytes % (Manual) Eosinophils % (Manual) Platelet Estimate Pending RBC Morphology Pending Sodium 136 Potassium 3.3 L Chloride 105 Carbon Dioxide 27 Anion Gap 7.3 BUN 13 D Creatinine 0.90 Estimated Creat Clear 96 Estimated GFR 84 Est GFR ( Amer) 102 Glucose 125 H POC Glucose 126 H 105 Calcium 8.4 Magnesium 2.1 D Total Bilirubin 0.6 AST 27 ALT 18 Alkaline Phosphatase 89 NT-Pro-B Natriuret Pep Total Protein 5.6 L Albumin 2.8 L D Globulin 2.8 Albumin/Globulin Ratio 1.0 L TSH Thyroxine (T4) Urine Color Urine Appearance Urine pH Ur Specific [place] Urine Protein Urine Glucose (UA) Urine Ketones Urine Blood Urine Nitrate Urine Bilirubin Urine Urobilinogen Ur Leukocyte Esterase Urine RBC Urine WBC Ur Squamous Epith Cells Urine Bacteria HCV Ab MELIZA w/Rflx PCR Qn HIV Ag/Ab Combo Qual 06/16/24 06/16/24 06/16/24 16:19 08:20 07:44 WBC RBC Hgb Hct MCV MCH MCHC RDW Plt Count MPV Neut % (Auto) Lymph % (Auto) Mckean % (Auto) Eos % (Auto) Baso % (Auto) Neut # (Auto) Lymph # (Auto) Mckean # (Auto) Eos # (Auto) Baso # (Auto) Total Counted 100 Neutrophils % (Manual) 85 H Lymphocytes % (Manual) 9 L Monocytes % (Manual) 5 Eosinophils % (Manual) 1 Platelet Estimate Slight increase RBC Morphology Normal Sodium Potassium Chloride Carbon Dioxide Anion Gap BUN Creatinine Estimated Creat Clear Estimated GFR Est GFR ( Amer) Glucose POC Glucose 99 Calcium Magnesium Total Bilirubin AST ALT Alkaline Phosphatase NT-Pro-B Natriuret Pep 2250 H Total Protein Albumin Globulin Albumin/Globulin Ratio TSH 1.33 Thyroxine (T4) 9.6 Urine Color Yellow Urine Appearance Clear Urine pH 6.0 Ur Specific [place] 1.020 Urine Protein 1+ A Urine Glucose (UA) 3+ Urine Ketones 3+ Urine Blood Trace-i Urine Nitrate Negative Urine Bilirubin 1+ A Urine Urobilinogen 0.2 Ur Leukocyte Esterase Negative Urine RBC 3-5 Urine WBC Occasional Ur Squamous Epith Cells None Urine Bacteria Trace HCV Ab MELIZA w/Rflx PCR Qn Negative HIV Ag/Ab Combo Qual Negative Preliminary micro results at discharge 06/16/24 07:56 Blood Culture - Preliminary Blood NO GROWTH AFTER 24 HOURS 06/16/24 07:44 Blood Culture - Preliminary Blood NO GROWTH AFTER 24 HOURS DS: Diagnosis Discharge Diagnosis (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 (2) Diabetes mellitus: Status: Acute Code(s): E11.9 - Type 2 diabetes mellitus without complications (3) SIRS (systemic inflammatory response syndrome): Status: Acute Code(s): R65.10 - Systemic inflammatory response syndrome (SIRS) of non-infectious origin without acute organ dysfunction (4) GERD (gastroesophageal reflux disease): Status: Acute Code(s): K21.9 - Gastro-esophageal reflux disease without esophagitis Qualifiers: Esophagitis presence: esophagitis presence not specified Qualified Code(s): K21.9 - Gastro-esophageal reflux disease without esophagitis (5) Hypertension: Status: Acute Code(s): I10 - Essential (primary) hypertension Qualifiers: Hypertension type: unspecified Qualified Code(s): I10 - Essential (primary) hypertension (6) (HFpEF) heart failure with preserved ejection fraction: Status: Acute Code(s): I50.30 - Unspecified diastolic (congestive) heart failure Meds Home Medications and Allergies Home Medications ?Medication ?Instructions ?Recorded ?Confirmed ?Type trazodone 50 mg tablet 50 mg PO HS 06/23/18 06/16/24 History losartan 100 mg tablet 100 mg PO DAILY 30 days #30 tabs 11/18/19 06/16/24 Rx bupropion HCl 150 mg 24 hr tablet, 450 mg PO DAILY 02/25/23 06/16/24 History extended release (Wellbutrin XL) atorvastatin 20 mg tablet 20 mg PO HS 03/02/23 06/16/24 History dapagliflozin propanediol 10 mg 10 mg PO DAILY 08/03/23 06/16/24 History tablet (Farxiga) pantoprazole 20 mg tablet,delayed 20 mg PO DAILY #30 tabs 08/03/23 06/16/24 Rx release ketorolac 10 mg tablet 10 mg PO Q8HP PRN Mild Pain (Scale 06/16/24 06/16/24 History Score 1-4) furosemide 40 mg tablet (Lasix) 40 mg PO DAILY #30 tabs 06/17/24 Rx levofloxacin 750 mg tablet 750 mg PO DAILY 5 days #5 tabs 06/17/24 Rx New Prescriptions to Start Prescriptions: furosemide [Lasix] Brian Perez levofloxacin Brian Perez Allergies Allergy/AdvReac Type Severity Reaction Status Date / Time amoxicillin (From Augmentin) Allergy Mild Rash Verified 06/15/24 14:00 clavulanic acid (From Allergy Mild Rash Verified 06/15/24 14:00 Augmentin) Penicillins Allergy hives Verified 06/15/24 14:00 Sulfa (Sulfonamide Allergy Hives Verified 06/15/24 14:00 Antibiotics) Tetracyclines AdvReac Mild CARDENAS Verified 06/15/24 14:00 Discharge Plan Disposition Patient Disposition: Home, Self-Care Condition: Fair Follow up Plan Follow up with: Francis Brown MD [Primary Care Provider] - 06/22/24 11:30 am Ronald Delcid MD [Staff Physician] - 06/29/24 9:15 am Prescriptions/Medication Reconciliation: New levofloxacin 750 mg tablet 750 mg PO DAILY 5 Days Qty: 5 0RF Rx Instructions: first dose 06/18/24 furosemide [Lasix] 40 mg tablet 40 mg PO DAILY Qty: 30 0RF Continued trazodone 50 mg tablet 50 mg PO HS bupropion HCl [Wellbutrin XL] 150 mg tablet extended release 24 hr 450 mg PO DAILY dapagliflozin propanediol [Farxiga] 10 mg tablet 10 mg PO DAILY Patient Comments: TAKE ONE TABLET BY MOUTH EVERY DAY pantoprazole 20 mg tablet,delayed release (DR/EC) 20 mg PO DAILY Qty: 30 3RF atorvastatin 20 mg tablet 20 mg PO HS Patient Comments: TAKE ONE TABLET BY MOUTH EVERY DAY ketorolac 10 mg tablet 10 mg PO Q8HP PRN (Reason: Mild Pain (Scale Score 1-4)) Patient Comments: maximum total duration of 5 days from all oral, intranasal, or parenteral formulations losartan 100 MG tablet 100 mg PO DAILY 30 Days Qty: 30 0RF Problem Reconciliation Problems Reviewed?: Yes Patient Discharge Instructions ACTIVITY: Continue current activity DIET: continue same diet Patient Instructions: DI for Tachycardia, Stop Light Infection Print Language: Haitian Providers Primary Care Provider: Francis Brown Admit Provider: Brian Perez Attending Provider: Brian Perez
[2024-06-17 09:00] LABS: Eosinophils % 3 % (0-3); Lymphocytes % 18 % (10-50); Monocytes % 14 % (2-9); Neutrophils % 64 % (42-76); Platelet Estimate Slight Increase; RBC Morphology Normal; Total Cells Counted 100
[2024-06-17] MEDS: metroNIDAZOLE 500 MG TABLET PO (09:03)
[2024-06-17] MEDS: FUROSEMIDE 40MG/4ML VIAL 80 MG IV (09:03)
[2024-06-17] MEDS: KETOROLAC 30MG/ML VIAL 30 MG IV (09:17)
[2024-06-17] MEDS: levoFLOXacin 750 MG TABLET PO (10:13)
[2024-06-17 12:07] LABS: Hemoglobin A1C 5.3 % (4.0-6.0)
--- NOTE | 2024-06-20 10:37 | SW/DCPLANNER ---
Spoke with patient on the phone. Patient stated that he is doing okay. Patient stated that he was able to get his new medicine picked up at clinic pharmacy. Patient stated that he is aware of his upcoming appointments. Patient stated that he has no concerns or questions at this time. Tabatha Espinoza
== END 2024-06-17 11:43 | disposition home or self-care (01) ==
LOC: ER 12:50 → 2ND 12:52
PROVIDERS: Admitting Provider Internal Medicine Adolescent Medicine; Emergency Provider Emergency Medicine; PCP Internal Medicine Adolescent Medicine; Visit Provider Internal Medicine Adolescent Medicine
DX: D37.3 Neoplasm of uncertain behavior of appendix (principal); R65.10 Systemic inflammatory response syndrome (SIRS) of non-infectious origin without acute organ dysfunction; K21.9 Gastro-esophageal reflux disease without esophagitis; I11.0 Hypertensive heart disease with heart failure; E11.9 Type 2 diabetes mellitus without complications; I50.30 Unspecified diastolic (congestive) heart failure; Z79.899 Other long term (current) drug therapy; Z88.0 Allergy status to penicillin; Z88.2 Allergy status to sulfonamides; Z88.1 Allergy status to other antibiotic agents; Z86.16 Personal history of COVID-19
CPT/HCPCS: 36415; 71275; 74177; 80053; 81001; 82803; 82962; 83036; 83605; 83735; 83880; 84436; 84443; 84484; 85007; 85025; 85610; 85730; 86803; 87040; 87389; 93005; 93306; 99291; G0378; J1650; J1885; J1938; J1956; J7120; Q9967

== ENCOUNTER 2024-06-27 08:10 | Outpatient (CLI) | payer MEDICARE, SELFPAY ==
--- OUTSIDE RECORDS SUMMARY | 2024-06-27 08:12 | XMS_ITS | Data Portability ---
Author Organization [facility] & Cyndi [facility] ADMIN Address [address] [place] [address] Care Team Providers Care Stained Glass Painter Name Role Phone PRIYA CONCEPCION Primary Care [...] By Organization Details Last Modified Time 02/25/2022 [id number] 1-Discussed findings with Mr. Paige. 2-Rec new hearing aids; he will pursue through his health insurance. 3-F/u hearing testing annually to monitor. mandy Not available 02/25/2022 10:55:32 03/20/2022 [id number] 1-Mr. Paige was fit with Unitron Moxi [...] Organization Details Recorded Time Sensorineural hearing loss 45147745 Active 2022 JULIET CRAWLEY, AUD [address] [facility], [place], [address] , [facility] & [place] 02/02/202 3 09:10:16 Problem Notes None recorded. [...] SNOMED-CT Code Diagnosis ICD10 Code Diagnosis Note [id number] BRADY ASKEW [facility] [place] [address] [address] [facility], [address] [place] [id number] 02/25/2022 09:57:44 02/25/2022 10:24:52 Sensorineural hearing loss 57641526 H90.3 [id number] BRADY AS[facility] [place] [address] [place] [phone] 03/20/2022 08:15:03 03/20/2022 08:59:26 Sensorineural hearing loss [id number] H90.3 [id number] BRADY ASKEW [facility] [address] [place] [place] [address] 05/03/2024 15:18:33 05/03/2024 15:31:30 Sensorineural hearing loss 62471765 H90.3 Health Concerns Section Related Observation LastModified by Organization Detai ls LastModified Time None Recorded Concern Status LastModified by Organization Details LastModified Time None Recorded Advance Directives Directive None Recorded Payers Insurance Date Sequence Insurance Name Policy Number Policy Carney Covered Member ID Carney Member ID Guarantor Name 05/03/2024 1 [employer] - [place] - DOS PRIOR TO 2024 (PPO) Elvin Paige [id number] Elvin Paige 05/03/2024 [employer] - [place] - DOS ON OR BEFORE 02/15/2023 - [place]HA (PPO) Elvin Paige [id number] Elvin Paige 05/03/2024 [address] [facility] (MEDICARE REPLACEMENT/ADVAN TAGE - PPO) [id number] Elvin Paige [id number] Elvin Paige Notes Date Note Type Note [...] unremarkable bilaterally. BRADY ASKEW [address], [place], [address], [facility] & [place] 02/25/2022 10:55:41 03/20/2022 text/html Mr. Paige was seen today for a hearing aid fitting. BRADY ASKEW [address], [place], [address], [facility] & [place] 03/20/2022 09:11:05 05/03/2024 text/html Patient was seen today for a hearing aid service. Cleaned and adjusted hearing aids this date. BRADY ASKEW [address], [place], [address], [facility] & [place] 05/03/2024 15:54:13
--- OUTSIDE RECORDS SUMMARY | 2024-06-27 08:12 | XMS_ITS | Data Portability ---
Author Organization [facility] KATIANA Gonzalez [place] [facility] Address [address] [facility] [place] [address] Care Team Providers Care General Office Dispatcher Name Role Phone ELAFREDERICK PRIYA Primary Care [...] - Destruction BN Lesions completed Cathi Ashby [facility] 05/18/2023 13:45:42 Imaging Results None recorded. Procedure Notes None recorded. Medical Equipment None Reported. Allergies Allergen ID Allergen Name Allergen Category Reaction Reaction Severity Criticality Documentation Date Start Date Code Code System Note Provider Name and Address Organization Details Recorded Time 502648 Product containin g penicilli n (product) medicatio n Not available Not available Not available 05/18/2023 73210 8001 SNOMED Maday [facility] 13:25:07 837488 Substance with sulfonami de structure and antibacte rial mechanism of action (substanc e) medicatio n Not available Not available Not available 05/18/2023 80447 8003 SNOMED Maday [facility] 13:25:11 160957 Medicinal product containin g tetracycl ine structure and acting as antibacte rial agent (product) medicatio n Not available Not available Not available 05/18/2023 58331 1004 SNOMED Maday Barajas [facility] 4 13:25:20 291171 Augmentin medicatio n Not available Not available Not available 05/18/2023 45098 2 RxNorm Maday Barajas [facility] 13:25:26 Medications Name Sig Start Date [...] Recorded Social History None recorded. Functional Status Question Answer Note LastModified by Organization D etails LastModified Time What is your level of alcohol consumption? None [email or web address] Information not available 05/18/2023 Mental Status None recorded. Family History Nothing Reported. 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 Condition Response Melanoma N Squamous Cell Carcinoma N Basal Cell Carcinoma N Past Encounters Encounter ID Performer Location Encounter Start Date Encounter Closed Date Diagnosis/Indication Diagnosis SNOMED-CT Code Diagnosis ICD10 Code Diagnosis Note [id number] JOSE SHARIF PA-C [address] [address] 05/18/2023 13:10:07 05/18/2023 15:13:55 Multiple benign melanocytic nevi [id number] D22.5 D18.01 L82.1 L81.4 The benign nature [...] lesions are noted. Inflamed s eborrheic keratosis [id number] L82.0 Benign.Ris ks of blistering , discolorat ion and scarring discussed. Will tx with LN2 since bothersome . External hordeolum 90621 08 H00.011 The etiology of lesion(s) discussed. [...] Member ID Carney Member ID Guarantor Name 09/04/2023 1 [employer] - DOS PRIOR TO 2024 (PPO) Elvin Paige [id number] Elvin Paige 12/01/2023 PAYMENT PLAN Elvin Paige 09/04/2023 1 [facility] - [place] - DOS PRIOR TO 2024 (PPO) Elvin Paige [id number] Elvin Paige Notes Date Note Type Note Provider Name and Address Organization Details Recorded Time 05/18/2023 text/html Here for a full body skin examination - first skin check: {{}}- no history of skin cancer- spots of concern today: {{ Back, L lower lid #}} JADYN CHÁVEZC [address] [place], [address], [facility] 05/18/2023 15:04:52
--- OUTSIDE RECORDS SUMMARY | 2024-06-27 08:12 | XMS_ITS | Continuity of Care Document ---
Author Organization [facility] & [place], [facility] Sarah Address [address] [place] [address] Care Team Providers Care Special Educator Name Role Phone PRIYA CONCEPCION Primary Care Provider [phone] Assessment No assessment recorded. Plan of Treatment [...] Organization Details Recorded Time Sensorineural hearing loss 33590213 Active 2022 JULIET CRAWLEY, AUD [address] [facility], [place], [address] , [facility] & [place] 3 09:10:16 Problem Notes None recorded. Medical [...] SNOMED-CT Code Diagnosis ICD10 Code Diagnosis Note [id number] BRADY ASKEW [facility] [place] [address] [facility] [address] [place] [address] 05/03/2024 15:18:33 05/03/2024 15:31:30 Sensorineural hearing loss 42764218 H90.3 Health Concerns Section Related Observation LastModified by Organization Shruthi headley LastModified Time None Recorded Concern Status LastModified by Organization Details LastModified Time None Recorded Payers Encounter Date Sequence Insurance Name Policy Number Policy Carney Covered Member ID Carney Member ID Guarantor Name 05/03/2024 1 [facility] (MEDICARE REPLACEMENT/A DVANTAGE - PPO) [id number] Elvin Paige [id number] Elvin Piage Notes Date Note Type Note Provider Name and Address Organization Details Recorded Time 05/03/2024 text/html Patient was seen today for a hearing aid service. Cleaned and adjusted hearing aids this date. JULIET CRAWLEY, AUD [address] , [place], [address], [facility] [place] 05/03/2024 15:54:13
--- NOTE | 2024-06-27 08:13 | US_ITS ---
FINAL REPORT CLINICAL HISTORY: ASCITES / HEMICOLECTOMY DONE ON May COMPARISON: None FINDINGS: Sonographic images of the right upper quadrant were obtained. The pancreas is partially obscured.The liver has an unremarkable appearance. The gallbladder is filled with sludge and the wall is thickened. Floating cholesterol stones are seen within the sludge. There is no evidence of biliary ductal dilatation.The common duct measures 3 mm. Limited images of the right kidney are unremarkable. There is a small amount of ascites in the right and left lower quadrants. IMPRESSION: Thickened gallbladder wall with floating cholesterol stones within sludge. Small amount of ascites. Reviewed, Interpreted and Dictated by Wayne Soria MD Transcribed by Daniela Randolph Authenticated and [facility]
== END 2024-06-27 23:59 | disposition home or self-care (01) ==
LOC: RAD 08:11
PROVIDERS: PCP Internal Medicine Adolescent Medicine; Visit Provider Internal Medicine Adolescent Medicine
DX: K80.21 Calculus of gallbladder without cholecystitis with obstruction (principal); R18.8 Other ascites
CPT/HCPCS: 76705

== ENCOUNTER 2024-10-21 15:13 | Outpatient (CLI) | payer MEDICARE, SELFPAY ==
--- NOTE | 2024-10-21 15:19 | XR_ITS ---
FINAL REPORT CLINICAL HISTORY: Left thumb pain FINDINGS: AP, oblique, and lateral views of the left hand were obtained. There is no prior exam for comparison. There is no acute fracture or dislocation. There is degenerative joint disease at the first CMC joint. No acute soft tissue abnormality. IMPRESSION: No acute osseous abnormality of the left hand. 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 Authenticated and [facility]
== END 2024-10-21 23:59 | disposition home or self-care (01) ==
LOC: RAD 15:16
PROVIDERS: PCP Internal Medicine Adolescent Medicine; Visit Provider Physician Assistant Surgical
DX: M18.12 Unilateral primary osteoarthritis of first carpometacarpal joint, left hand (principal)
CPT/HCPCS: 73130

== ENCOUNTER 2024-11-03 16:06 | Outpatient (CLI) | payer MEDICARE, SELFPAY ==
--- NOTE | 2024-11-03 16:30 | MR_ITS ---
PROCEDURE INFORMATION: Exam: MR Left Upper Extremity Other Than Joint Without Contrast; Hand Exam date and time: 11/03/2024 4:44 PM Age: 69 years old Clinical indication: Left thumb pain after hitting the horn on the steering wheel wrong x 1 month ago TECHNIQUE: Imaging protocol: MR of the left upper extremity without contrast. Exam focused on the hand. COMPARISON: CR XR HAND LT MIN 3V 10/21/2024 3:21 PM FINDINGS: Bones/joints: No acute fracture. 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 Collateral ligaments of digits: Findings are suggestive of a retracted full-thickness tear of the thumb MCP joint ulnar collateral ligament, with interposed aponeurosis of the adductor longus tendon (Stener lesion). Flexor compartment tendons: Unremarkable. No evidence of tear. Extensor compartment tendons: Mild sprain of the extensor pollicis tendons over the MCP joint region. Soft tissues: [id number] edema in the thenar musculature consistent strain (most prominently abductor pollicis brevis muscle). IMPRESSION: 1. Findings are suggestive of a retracted full-thickness tear of the thumb MCP joint ulnar collateral ligament, with interposed aponeurosis of the adductor longus tendon (Stener lesion). 2. Mild sprain of the extensor pollicis tendons over the MCP joint region. 3. No acute fracture.
== END 2024-11-03 23:59 | disposition home or self-care (01) ==
LOC: RAD 16:06
PROVIDERS: PCP Internal Medicine Adolescent Medicine; Visit Provider Physician Assistant Surgical
DX: S63.642A Sprain of metacarpophalangeal joint of left thumb, initial encounter (principal); R93.6 Abnormal findings on diagnostic imaging of limbs; W22.8XXA Striking against or struck by other objects, initial encounter
CPT/HCPCS: 73218

== ENCOUNTER 2024-12-14 13:45 | Outpatient (RCR) | payer MEDICARE, SELFPAY ==
--- NOTE | 2024-12-14 16:06 | HMH.OTOPEV ---
OT Evaluation Rehab OT Outpatient Eval Start: 12/14/24 13:47 Freq: Status: Active Protocol: Document 12/14/24 13:58 MERVIN (Rec: 12/14/24 16:06 MERVIN [id number]) E-signed By Meseret Alva, OT Outpatient Therapy Subjective History Subjective History Pt is a 69 yr old male being seen for OP OT evaluation due to injury to L thumb. Pt reported injury occurred on October 02 and the injury was from when the pt went to honk a horn very hard to alert a truck that was coming into their [place]. Pt reported the thumb just flopped. Pt reported they had an MRI and it shown a torn ligament. Pt reported wearing a brace intermittently and is only wearing the brace at night. Pt reported they have pain at MCP joint of thumb on L hand when gripping. 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 New diagnosis of No cancer in past 12 months? Chief Complaint Pain,Weakness,Decreased Home Care Aide Strength,Decreased Coordination Symptom Type Ache Symptoms Relieved By Rest/Positioning,Brace/Support,OTC Meds Symptoms Aggravated Physical Activity,Lifting By Prior Functional None Limitations Current Functional Lifting,Sleeping,Recreation Activity Limitations Symptom Description Activity Dependent Level of pain today 2 (0-10) Pain scale - at its 0 best (0-10) Pain scale - at its 6 worst (0-10) Wrist/Hand Eval Thumb Range of Motion Left Thumb 70 Metacarpophalangeal Flexion Active Range of Motion (degrees) Thumb Palmar 45 Abduction ( Carpometacarpal Flex ) Active Range ( degrees) Thumb 70 Interphalangeal Flexion Active Range of Motion (degrees) Home Care Aide/Pinch Strength Left Home Care Aide Strength 53 Measurement (lbs) QuickDASH Activities Please rate your ability to do the following activities in the last week by selecting the number below the appropriate response. 1. Open a tight or Moderate difficulty new jar. 2. Do heavy Moderate difficulty paper tube cutter (e. g., wash barriga, floors). 3. Carry a shopping Mild difficulty bag or briefcase. 4. Wash your back. Mild difficulty 5. Use a knife to Moderate difficulty cut food. 6. Recreational Moderate difficulty activities in which you take some force or impact through your arm, shoulder, or hand (e.g., golf, hammering, tennis, etc.). 7. During the past Slightly week, to what extent has your arm, shoulder or hand problem interfered with your normal social activities with family, friends , neighbors or groups? 8. During the past Slightly limited week, were you limited in your work or other regular daily activites as a result of your arm, shoulder or hand problem? 9. Arm, shoulder or Moderate hand pain. 10. Tingling (pins None and needles) in your arm, shoulder or hand. 11. During the past Mild difficulty week, how much difficulty have you had sleeping because of the pain in your arm, shoulder or hand? Quick DASH 26 OT Patient Goals OT Patient Goals OT Short Term 1. Pt will improve Quick Dash Activities score to 24 or Patient Goals below. 2. 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 3. Pt will improve endurance by completing 10 minutes of therapeutic exercises before rest. 4. Pt will improve subjective pain by reporting pain at worst a 4/10. 5. Pt will be Ind in HEP of theraputty to demo carryover of therapy. 6. Pt will improve MCP flexion of L thumb to 50 degrees and IP to 75 degrees. OT Assisted Patient 1. Pt will improve Quick Dash Activities score to 20 or Goals below. 2. 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 3. Pt will improve endurance by completing 15 minutes of therapeutic exercises before rest. 4. Pt will improve subjective pain by reporting pain at worst a 2/10. 5. Pt will be Ind in advanced therapeutic exercises and stretches to demo carryover of therapy. 6. Pt will improve MCP flexion of L thumb to 50 degrees and IP to 80 degrees. OT Outpatient Assessment Impairments Problems/Impairments Palpation Tenderness,Impaired Range of Motion,Impaired Strength,Impaired Endurance,Impaired Lifting,Impaired Household Care,Impaired Recreational Activities, Subjective C/O Pain,Impaired Self Care/Self Management Prognosis Rehab Potential Good Clinical Impression Consistent with Yes Diagnosis Outpatient Therapy Plan of Care Treatment Plan May Include Therapeutic Exercise Yes Including Home Exercise Program Manual Therapy Yes Techniques Neuromuscular Re- Yes education Therapeutic Yes Activities to Return to Previous Functional/Work Level ADL/Self Care Yes Education Thermal Modalities Yes Electrical Yes Stimulation Ultrasound/ Yes Phonophoresis Iontophoresis Yes Parrafin Yes Orthotics/Bracing/ Yes Splinting Group Therapy for Yes Medicare Eval/Re-Eval Yes Frequency Times per week 2 Duration Number of Weeks 6 Addendums This patient is a No candidate for social or vocational rehab ? Patient/Guardian Yes verbally acknowledges understanding of treatment program and consents to further treatment? Patient/Guardian Yes verbally acknowledges understanding of diagnosis, prognosis and goals for treatment? Shoulder/Elbow Eval Shoulder Objective Measurements Elbow Objective Measurements PHYSICIAN CERTIFICATION: I certify the specified therapy services for Elvin Paige are required, authorized, and reviewed every 30 days.
== END 2024-12-14 23:59 | disposition home or self-care (01) ==
LOC: OT 13:45
PROVIDERS: PCP Internal Medicine Adolescent Medicine; Visit Provider Physician Assistant Surgical
DX: S63.438A Traumatic rupture of volar plate of other finger at metacarpophalangeal and interphalangeal joint, initial encounter (principal); X58.XXXA Exposure to other specified factors, initial encounter

== ENCOUNTER 2024-12-19 08:59 | Outpatient (RCR) | payer MEDICARE, SELFPAY | END 2024-12-19 23:59 | disposition home or self-care (01) | LOC: OT 08:59 | PROVIDERS: PCP Internal Medicine Adolescent Medicine; Visit Provider Physician Assistant Surgical | DX: S63.639D Sprain of interphalangeal joint of unspecified finger, subsequent encounter (principal); X58.XXXD Exposure to other specified factors, subsequent encounter | CPT/HCPCS: 97110; 97140 ==